=== PATIENT | female | born 1950 | race Caucasian/White ===

== ENCOUNTER 2019-12-25 13:04 | Outpatient (CLI) | payer MEDICARE, SELFPAY ==
--- NOTE | 2019-12-25 | ECG_ITS ---
Measurements Intervals [place] Rate: 106 P: 75 [place]: 136 QRS: 4 QRSD: 86 T: 40 QT: 334 QTc: 443 Interpretive Statements SINUS TACHYCARDIA DELAYED PRECORDIAL R/S TRANSITION CONSIDER INFERIOR INFARCT, AGE INDETERMINATE ABNORMAL ECG Electronically Signed On 12-25-2019 16:06:58 CDT by Anurag Mercedes D.O.
--- NOTE | ~2019-12-25 | XR_ITS ---
EXAMINATION: XR chest 2V DATE: 12/25/2019 14:21 INDICATION: Right upper quadrant pain. Dysphagia. TECHNIQUE: PA and lateral views of the chest were obtained. COMPARISON: Chest radiograph dated 03/02/2017 FINDINGS: The lungs remain clear with no focal airspace opacities, pulmonary edema, pleural effusion or pneumot horax. The cardiomediastinal silhouette is normal. Moderate to severe degenerative skeletal changes i n the spine and bilateral shoulders. IMPRESSION: 1. No acute cardiopulmonary disease. Reviewed, dictated and finalized at location A.
--- NOTE | ~2019-12-25 | US_ITS ---
EXAMINATION: US right upper quadrant DATE: 12/25/2019 15:05 INDICATION: Right upper quadrant abdominal pain. Dysphagia. TECHNIQUE: Multiple grayscale and Doppler ultrasound images of the abdomen were obtained. COMPARISON: None FINDINGS: The visualized portions of the head, body, and tail of the pancreas are normal. The liver i s normal without focal lesion. There is normal flow in main portal vein. The gallbladder is normal in size and contains sludge. There is comet-tail artifact in the gallbladder wall, consistent with iron omyomatosis. No gallbladder wall thickening or sonographic Piper sign. The common duct is normal and measures 6 mm. IMPRESSION: 1. Gallbladder sludge. No evidence of acute cholecystitis. Reviewed, dictated and finalized at location B.
[2019-12-25 14:01] LABS: Alanine Aminotransferase 22 U/L (4-35); Albumin Level 4.4 g/dL (3.5-5.1); Alkaline Phosphatase 106 U/L (38-126); Anion Gap 6 mmol/L (8-16); Aspartate Amino Transferase 27 U/L (14-36); Bilirubin,Total 0.5 mg/dL (0.2-1.3); Blood Urea Nitrogen 19 mg/dL (7-17); Calcium 9.4 mg/dL (8.4-10.2); Carbon Dioxide 28 mmol/L (22-30); Chloride 102 mmol/L (98-107); Estimated Glomerular Filt Rate > 60; Glucose 124 mg/dL (65-105); Potassium 4.1 mmol/L (3.4-5.0); Sodium 136 mmol/L (137-145)
[2019-12-25 14:16] LABS: Hemoglobin 15.5 g/dL (12.0-15.0); Mean Corpuscular HGB Conc 33.7 g/dl (32-36); Mean Corpuscular Hemoglobin 30.8 pg (26-34); Mean Corpuscular Volume 91.5 fl (80-100); Mean Platelet Volume 12.1 fl (7.4-10.4); Platelet Count Result 256 k/mm3 (150-375); Red Blood Count 5.03 M/mm3 (4.2-5.4); Red Cell Distribution Width 13.9 % (11.5-14.5); White Blood Count 9.4 K/mm3 (4.5-10.0)
[2019-12-25 14:21] LABS: Creatine Kinase MB 2.2 ng/mL (0.0-2.37); Troponin I 0.324 ng/mL (0.000-0.034)
== END 2019-12-25 13:05 | disposition home or self-care (01) ==
PROVIDERS: PCP Internal Medicine; Visit Provider Internal Medicine
DX: R13.10 Dysphagia, unspecified (principal); R07.9 Chest pain, unspecified; R10.11 Right upper quadrant pain; K83.9 Disease of biliary tract, unspecified; R94.31 Abnormal electrocardiogram [ECG] [EKG]
CPT/HCPCS: 36415; 71046; 76705; 80053; 82553; 84484; 85027; 93005

== ENCOUNTER 2019-12-25 15:54 | Inpatient (IN) | payer MEDICARE, SELFPAY ==
[2019-12-25] VITALS (10 sets, daily range): BP systolic 108–146; BP diastolic 50–78; PULSE 78–106; RESP 15–20; TEMP 36.6–37; O2SAT 96–100; BMI 34.1
--- NOTE | ~2019-12-25 | NM_ITS ---
EXAMINATION: NM cj stress w perfusion DATE: 12/26/2019 14:04 INDICATION: Rest pain. Elevated troponin. TECHNIQUE: Rest images were obtained following intravenous administration of 10 mCi Tc99m tetrofosmin (Myoview). The patient was infused intravenously with Lexiscan (Regadenoson). Then, 30.8 mCi Tc99m t etrofosmin (Myoview) was administered intravenously, and stress images were obtained. Data was recons tructed into short axis and horizontal and vertical long axis SPECT images. Gated SPECT images were a lso obtained. COMPARISON: None. FINDINGS: Mild reversible perfusion defect at the apical and inferoapical segments consistent with is chemia. Mild nonreversible perfusion defect at the mid inferior and mid inferolateral segments. There is normal left ventricular chamber size, wall motion and ejection fraction. Left ventricular ejecti on fraction measures 67%. IMPRESSION: 1. Mild reversible ischemia at the apical and inferoapical segments. 2. Nonreversible mild infarct involving the mid inferior and mid inferolateral segments. 2. Left ventricular ejection fraction measuring 67%. Reviewed, dictated and finalized at location A.
--- NOTE | 2019-12-25 16:58 | ECG_ITS ---
Measurements Intervals [place] Rate: 90 P: 57 [place]: 145 QRS: -16 QRSD: 87 T: 29 QT: 366 QTc: 449 Interpretive Statements SINUS RHYTHM BORDERLINE R WAVE PROGRESSION, ANTERIOR LEADS INFERIOR INFARCT, AGE INDETERMINATE BASELINE WANDER- V4 ABNORMAL ECG Electronically Signed On 12-25-2019 19:41:56 CDT by Anurag Mercedes D.O.
--- NOTE | 2019-12-25 17:21 | ED.GENADULT ---
HPI - General Adult General Chief complaint: Unspecified Stated complaint: cardiac workup, my doctor sent me Time Seen by Provider: 12/25/19 16:58 Source: patient History of Present Illness HPI narrative: 69-year-old female presents to emergency department for sternal burning chest pain for the past 5 days. Patient states she has never had this in the past before. Pain is sometimes worse with foods. Pain improves sometimes when she sits up and burps. She states she took some Tums to help with the pain. She denies shortness of breath. No nausea or vomiting. No fever or chills. Related Data Home Medications Medication Instructions Recorded Confirmed hydroxychloroquine 200 mg PO BID 12/25/19 12/25/19 losartan-hydrochlorothiazide 1 tablet PO DAILY 12/25/19 12/25/19 meloxicam 15 mg PO DAILY PRN 12/25/19 12/25/19 methotrexate sodium 5 mg PO WEEKLY 12/25/19 12/25/19 multivit with min-folic acid 0.4 mg PO DAILY 12/25/19 12/25/19 [Adult One Daily Multivitamin] Allergies Allergy/AdvReac Type Severity Reaction Status Date / Time piperacillin Allergy Unknown RASH, Verified 12/25/19 17:00 HIVES,ITCHING Sulfa (Sulfonamide Allergy Unknown RASH/HIVES Verified 12/25/19 17:00 Antibiotics) tazobactam Allergy Unknown RASH, Verified 12/25/19 17:00 HIVES,ITCHING Review of Systems Review of Systems: Narrative: CONSTITUTIONAL: Denies fever, chills, or sweats. EYES: Denies visual changes, redness, or discharge. ENT: Denies rhinorrhea, congestion, sore throat, or otalgia. CARDIOVASCULAR: Denies palpitations, or edema. Reports burning sternal pain RESPIRATORY: Denies cough or dyspnea. GASTROINTESTINAL: Denies abdominal pain, nausea, vomiting, or diarrhea. GENITOURINARY: Denies dysuria or hematuria. SKIN: Denies rash or itching. MUSCULOSKELETAL: Denies back pain, joint pain, or myalgia. NEUROLOGIC: Denies headache, numbness, dizziness, or weakness. PSYCHIATRIC: Denies anxiety or depression. [facility] Family History Family History (Updated 12/25/19 @ 22:34 by Judie Cm RN) Sibling Diabetes mellitus Stented coronary artery Social History Social History Years smoked: 50 Smoking status: Current every day smoker Tobacco type: cigarettes Second hand tobacco smoke exposure: Yes Alcohol intake: never Substance use: never Substance use type: does not use Spiritual care concerns: No Exam Narrative: Exam Narrative: GENERAL: Well-appearing, well-nourished, and in no acute distress. HEAD: Normocephalic, atraumatic. EYES: PERRLA and EOMI. ENT: Nares clear, no rhinorrhea or epistaxis. Mucous membranes moist. NECK: Supple. CHEST: Clear to auscultation. No respiratory distress. HEART: Tachycardia present. No murmur heard. Normal peripheral pulses. ABDOMEN: Soft, nontender, nondistended, normal active bowel sounds. EXTREMITIES: Normal range of motion. No edema. SKIN: Warm, dry, no rash. NEURO: No focal deficits. Alert and oriented x3. PSYCH: Normal mood and affect. Course Reevaluation(s) Reevaluation #1: 1830 - re-evaluated pt, no current chest pain. Patient does have an elevated troponin, however has no current chest pain at this time. We will hold on giving heparin drip. 1844 - discussed case with Dr. Lainez, accepts admission Vital Signs Vital signs: Vital Signs Temperature 37.0 C 12/25/19 16:05 Pulse Rate 81 12/25/19 16:05 Respiratory Rate 18 12/25/19 16:05 Blood Pressure 144/60 H 12/25/19 16:05 Pulse Oximetry 100 12/25/19 16:05 Temperature 36.6 C 12/25/19 22:05 Pulse Rate 87 12/25/19 22:16 Respiratory Rate 18 12/25/19 22:05 Blood Pressure 126/78 12/25/19 22:05 Pulse Oximetry 97 12/25/19 22:05 Medical Decision Making Medical Records Medical records reviewed: Yes I reviewed the patient's medical records. Vital Signs Vital Signs: Vital Signs Temperature 37.0 C 12/25/19 16:05 Pulse Rate 8
[2019-12-25 17:34] LABS: Partial Thromboplastin Time 25.9 SECONDS (22.3-36.8)
[2019-12-25 17:37] LABS: Alanine Aminotransferase 22 U/L (4-35); Albumin Level 4.5 g/dL (3.5-5.1); Alkaline Phosphatase 102 U/L (38-126); Anion Gap 8 mmol/L (8-16); Aspartate Amino Transferase 30 U/L (14-36); Bilirubin,Total 0.4 mg/dL (0.2-1.3); Blood Urea Nitrogen 18 mg/dL (7-17); Calcium 9.9 mg/dL (8.4-10.2); Carbon Dioxide 27 mmol/L (22-30); Chloride 101 mmol/L (98-107); Estimated CRCL calculation 57 ml/min; Estimated Glomerular Filt Rate > 60; Glucose 141 mg/dL (65-105); Lipase 39 U/L (23-300); Potassium 3.7 mmol/L (3.4-5.0); Sodium 136 mmol/L (137-145)
[2019-12-25 17:43] LABS: Basophils Absolute Auto 0.1 K/mm3 (0.0-0.1); Basophils Percent Auto 0.7 % (0.2-1.2); Eosinophils Absolute Auto 0.2 K/mm3 (0-0.3); Eosinophils Percent Auto 1.8 % (0-4.4); Hematocrit 45.4 % (37.0-47.0); Hemoglobin 15.2 g/dL (12.0-15.0); Immature Granulocyte Absolute 0.04 K/mm3 (0.00-0.031); Immature Granulocyte Percent A 0.4 % (0-0.5); Lymphocytes Absolute Auto 2.69 K/mm3 (0.9-3.2); Lymphocytes Percent Auto 26.1 % (18.3-44.2); Mean Corpuscular HGB Conc 33.5 g/dl (32-36); Mean Corpuscular Hemoglobin 30.4 pg (26-34); Mean Corpuscular Volume 90.8 fl (80-100); Monocytes Absolute Auto 0.7 K/mm3 (0.1-0.6); Monocytes Percent Auto 7.1 % (2.6-8.5); Neutrophils Absolute Auto 6.6 K/mm3 (1.3-6.7); Neutrophils Percent Auto 63.9 % (45.5-73.1); Platelet Count Result 253 k/mm3 (150-375); Red Cell Distribution Width 13.7 % (11.5-14.5); White Blood Count 10.3 K/mm3 (4.5-10.0)
[2019-12-25 17:49] LABS: NT Pro B Type Natriuretic Pept 966 PG/ML (5-100)
[2019-12-25 17:50] LABS: Troponin I 0.306 ng/mL (0.000-0.034)
[2019-12-25] MEDS: ASPIRIN 81 MG CHEWABLE TABLET 324 MG PO (18:10)
[2019-12-25] MEDS: SODIUM CHLORIDE 0.9% IV 1,000 ML 999 ML IV CONT (18:10)
--- NOTE | 2019-12-25 19:41 | PC.NURSE ---
Per SAIDA Sánchez, no UA needed on patient.
[2019-12-25 20:24] LABS: Troponin I 0.341 ng/mL (0.000-0.034)
--- NOTE | 2019-12-25 22:15 | ADMGEN ---
This patient, Milla Morrow, was admitted to IMU Room 203-01. Patient/family oriented to hospital policies and general routines including ID bracelet, bed and alarms, visiting hours, pain management, procedures, bathroom and other care routines, personal items, smoking policy, room service/diet, and visiting hours. Valuables list has been completed. Information on how to activate the Rapid Response Team has been discussed. Patient/Family are encouraged to report perceived risks to care and to ask questions if they do not understand what they are told or what they should do.
[2019-12-25 23:52] LABS: Troponin I 0.365 ng/mL (0.000-0.034)
[2019-12-26] VITALS (15 sets, daily range): BP systolic 110–136; BP diastolic 44–89; PULSE 72–88; RESP 16–18; TEMP 36–36.8; O2SAT 95–100
--- NOTE | 2019-12-26 | EST_ITS ---
Patient Info Name: Carlotta Morrow Age: 69 years : 1950 Gender: Female Ht: 63 in Wt: 192 lbs BSA: 2.00 m2 Exam Date: 12/26/2019 11:52 AM Exam Location: [facility] Stress Patient Status: Inpatient Admit Date: 12/25/2019 Staff Ordering Physician: Romero Robles MD Attending Provider: Mel Lainez DO Exercise Technologist: Crystal Earl RDCS Exercise Physician: Tamera Mendez MD Exam Type: CA stress cj w NM Study Info Indications - elevated troponin A regadenoson stress test was performed. Summary 1. No abnormal ST-T wave changes with lexiscan. 2. Please correlate with nuclear medicine images, reported separately. Protocol: Lexiscan Stress ECG Details Stage: REST Duration (min): 10 min : 49 sec HR (bpm): 81 SBP (mmHg): 155 DBP (mmHg): 64 Stage: REST Duration (min): 13 min : 33 sec HR (bpm): 89 SBP (mmHg): 155 DBP (mmHg): 64 Stage: STAGE 1 Duration (min): 0 min : 59 sec HR (bpm): 109 SBP (mmHg): 145 DBP (mmHg): 53 Stage: RECOVERY Duration (min): 1 min : 0 sec HR (bpm): 102 SBP (mmHg): 132 DBP (mmHg): 62 Stage: RECOVERY Duration (min): 2 min : 0 sec HR (bpm): 100 SBP (mmHg): 132 DBP (mmHg): 62 Stage: RECOVERY Duration (min): 3 min : 0 sec HR (bpm): 99 SBP (mmHg): 129 DBP (mmHg): 60 Stage: RECOVERY Duration (min): 4 min : 0 sec HR (bpm): 96 SBP (mmHg): 129 DBP (mmHg): 60 Stage: RECOVERY Duration (min): 5 min : 0 sec HR (bpm): 95 SBP (mmHg): 136 DBP (mmHg): 56 Stage: RECOVERY Duration (min): 6 min : 0 sec HR (bpm): 95 SBP (mmHg): 136 DBP (mmHg): 56 Stage: RECOVERY Duration (min): 6 min : 50 sec HR (bpm): 95 SBP (mmHg): 147 DBP (mmHg): 57 Rest HR: 89 bpm Peak HR: 109 bpm Rest Sys BP: 155 mmHg Peak Sys BP: 147 mmHg Max Pred HR: 150 bpm % Max Pred HR: 73 % Target HR: 128 bpm Max RPP: 16,023 bpm*mmHg BP Response: Normal blood pressure response Termination Reason: Completed protocol Cardiac Symptoms: None Total Time: 1 min : 0 sec Rest Boykin BP: 64 mmHg Peak [place]kin BP: 57 mmHg Total Dose: 0.4 mg Resting ECG Normal sinus rhythm. Left axis deviation. Stress ECG No abnormal ST/T wave changes with exercise. Arrhythmias None. Report Signatures
--- NOTE | 2019-12-26 | ECHO_ITS ---
Patient Info Name: Milla Morrow Age: 69 years : 1950 Gender: Female Ht: 63 in Wt: 192 lbs BSA: 2.00 m2 HR: 75 bpm BP: 122 / 68 mmHg Heart Rhythm: Sinus Rhythm Technical Quality: Good Exam Date: 12/26/2019 2:17 PM Exam Location: [facility] Patient Status: Inpatient Admit Date: 12/25/2019 Staff Ordering Physician: Saúl Estrada MD Field Nurse: Taurus Piper RDCS, RT Attending Provider: Mel Lainez DO Referring Physician: Natalie MORALES; Exam Type: CA echo doppler color flow Study Info Indications R07.89 - Other chest pain Complete two-dimensional, color flow and Doppler transthoracic echocardiogram is performed with contrast to opacify the left ventricle and to improve the deliniation of the left ventricle endocardial borders. Summary 1. Overall good left ventricular systolic function with a calculated ejection fraction of 67%. The global longitudinal strain was -19% which is normal. However there was hypokinesis of the basal inferior septal segment. Diastolic dysfunction grade 1 is present. Normal left ventricular size and thickness. 2. Mild mitral regurgitation. 3. Normal sinus rhythm. Left Ventricle Left ventricular chamber dimension is normal. Left ventricular systolic function is normal, estimated at 65-70%. There is no increased left ventricular wall thickness. Left ventricular septal wall motion is normal. The left ventricular diastolic function is grade I diastolic dysfunction. Global longitudinal strain is normal at 18 %. Right Ventricle Right ventricular chamber dimension is normal. Right ventricular systolic function is normal. Left Atria Left atrial chamber dimension is normal. Right Atria Right atrial chamber dimension is normal. Aortic Valve The aortic valve is trileaflet. There is no aortic valve sclerosis. There is no aortic valve stenosis. There is no aortic valve regurgitation. Pulmonic Valve The pulmonic valve is normal. There is no pulmonic valve stenosis. There is no pulmonic regurgitation. Mitral Valve The mitral valve has normal leaflets. There is no mitral valve stenosis. There is mild mitral valve regurgitation. Tricuspid Valve The tricuspid valve leaflets are normal. There is no significant tricuspid valve stenosis. There is trace tricuspid valve regurgitation. No pulmonary hypertension, estimated pulmonary arterial systolic pressure is Empty. Pericardium/Pleural The pericardium appears normal. There is no pericardial effusion. Inferior Vena Cava Normal inferior vena cava with >50% collapse upon inspiration consistent with Empty right atrial pressure, Empty. Aorta The aortic root size at the sinus of Valsalva is normal. The prox ascending aorta size is normal. Left Ventricular Outflow Tract Name Value Normal LVOT 2D LVOT Diameter 2.1 cm LVOT Doppler LVOT Peak Gradient 3 mmHg LVOT Mean Gradient 2 mmHg LVOT VTI 18 cm LVOT VTI/AV VTI Ratio 0.8 LVOT Stroke Volume
--- NOTE | 2019-12-26 08:15 | PM.IMHP ---
H&P: HPI History of Present Illness Date/Time: 12/26/19 08:15 Chief complaint: chest pain Narrative: Date of visit 12/25. Milla Morrow is a 69 year old female smoker with hypertension and glucose intolerance who a last 3-4 days has had increasing symptoms of reflux. No particular foods bother but she says when she lays down she has been getting severe indigestion. She increased over the counter omeprazole to 40 mg b.i.d. and thought she was getting some relief but had a severe episode approximately 2 days ago which prompted her to see her primary care physician. She had an outpatient gallbladder sonogram, chest x-ray and lab . Her physician suggested she be seen at ER for evaluation and their workup was negative except for mildly elevated troponin and she was subsequently admitted. Discomfort was accompanied by no associated symptoms and never exertional. does have a brother that has has coronary disease and smokes 3-4 cigarettes a day but never heavy over the last several years. does have hypertension and rheumatoid arthritis Review of Systems Review of Systems: Narrative: constitutional weight stable and appetite good EYE no double vision or scotoma mouth no pharyngitis laryngitis pulmonary no short of breath wheezing or cough CV no history of cardiac disease and no murmurs no palpitations and no pedal edema GI no abdominal pain diarrhea melena or hematochezia just the upper symptoms as above and no dysphagia no dysuria hematuria extremities rotator cuff tear right shoulder chronic, no other symptoms, long history of well-controlled rheumatoid arthritis neuro no seizures no syncope PMFSH Past Medical History Medical History (Updated 12/26/19 @ 08:33 by Saúl Estrada MD) GERD (gastroesophageal reflux disease) Glucose intolerance Hypertension Rheumatoid arthritis Surgical History Surgical History (Updated 12/26/19 @ 08:34 by Saúl Estrada MD) H/O hysterectomy for benign disease S/P colon resection Family History Family History (Updated 12/25/19 @ 22:34 by Judie Cm RN) Sibling Diabetes mellitus Stented coronary artery Social History Social History Years smoked: 50 Smoking status: Current every day smoker Tobacco type: cigarettes Second hand tobacco smoke exposure: Yes Alcohol intake: never Substance use: never Substance use type: does not use Spiritual care concerns: No Meds Home Medications and Allergies Home Medications Medication Instructions Recorded Confirmed Type hydroxychloroquine 200 mg PO BID 12/25/19 12/25/19 History losartan-hydrochlorothiazide 1 tablet PO DAILY 12/25/19 12/25/19 History meloxicam 15 mg PO DAILY PRN 12/25/19 12/25/19 History methotrexate sodium 5 mg PO WEEKLY 12/25/19 12/25/19 History multivit with min-folic acid 0.4 mg PO DAILY 12/25/19 12/25/19 History [Adult One Daily Multivitamin] Allergies Allergy/AdvReac Type Severity Reaction Status Date / Time piperacillin Allergy Unknown RASH, Verified 12/26/19 08:17 HIVES,ITCHING Sulfa (Sulfonamide Allergy Unknown RASH/HIVES Verified 12/26/19 08:17 Antibiotics) tazobactam Allergy Unknown RASH, Verified 12/26/19 08:17 HIVES,ITCHING Vital Signs Vital Signs - 24 hr 12/25/19 16:05 12/25/19 17:00 12/25/19 17:01 Temperature 37.0 C Pulse Rate 81 106 H 102 H Respiratory Rate 18 20 Blood Pressure 144/60 H 130/64 Pulse Oximetry 100 96 12/25/19 18:40 12/25/19 19:30 12/25/19 21:00 Temperature Pulse Rate 84 81 79 Respiratory Rate 17 15 16 Blood Pressure 146/55 H 135/50 L 134/59 L Pulse Oximetry 98 96 97 12/25/19 21:50 12/25/19 22:05 12/25/19 22:16 Temperature 36.6 C Pulse Rate 81 86 87 Respiratory Rate 15 18 Blood Pressure 108/53 L 126/78 Pulse Oximetry 96 97 12/25/19 23:55 12/26/19 00:00 12/26/19 02:00 Temperature Pulse Rate 78 75 75 Respiratory Rate
[2019-12-26] MEDS: hydroCHLOROthiazide 12.5 MG CAPSULE PO (08:17)
[2019-12-26] MEDS: LOSARTAN POTASSIUM 50 MG TABLET PO (08:17)
[2019-12-26] MEDS: ACETAMINOPHEN 325 MG TABLET 650 MG PO ×2 (08:17→17:27)
[2019-12-26] MEDS: HYDROXYCHLOROQUINE SULFATE 200 MG TABLET PO ×2 (08:17→17:18)
--- NOTE | 2019-12-26 08:21 | PM.CNCAR ---
Assessment and Plan Assessment and plan (1) Elevated troponin: Code(s): R79.89 - Other specified abnormal findings of blood chemistry Status: Acute Assessment and Plan: mild elevation troponin. Negative EKG. Symptoms suggestive of acid reflux however given elevated troponins and multiple risk factors for CAD including hypertension, rheumatoid arthritis, tobacco abuse we will arrange for a Lexiscan stress test to rule out ischemia. (2) Chest pain: Code(s): R07.9 - Chest pain, unspecified Status: Acute Assessment and Plan: See above (3) Hypertension: Code(s): I10 - Essential (primary) hypertension Status: Acute Assessment and Plan: blood pressure is controlled. Continue current treatment (4) Rheumatoid arthritis: Code(s): M06.9 - Rheumatoid arthritis, unspecified Status: Acute History of Present Illness History of Present Illness Consult date/time: Date of service :12/26/19 08:21 Requesting physician: Saúl Estrada MD Consult reason: chest pain Reason For Visit: chest pain Narrative: this is 69-year-old female with past medical history of rheumatoid arthritis, hypertension, smoker 3 cigarettes. The Was started 5 days ago having central burning sensation that gets worse when she lays down and better when she is walking around. She states that she did not have chest pain during the day and only at night when she goes to sleep. She thinks that pain went away after taking antacids, drinking milk here in the hospital she did not have any recurrence of the pain here. Denies shortness of breath, limb edema, orthopnea, but expansion cm, dizziness, syncope. She states that she has problems with acid reflux for long time. This time was worse. troponins 0.32to 0.36. chest x-ray reviewed myself looks unremarkable, ultrasound of the gallbladder shows sludge. EKG interpreted myself shows sinus tachycardia and no ischemic changes. Review of Systems Constitutional: Constitutional: Denies chills, Denies fever(s) and Denies poor appetite Eyes: Eyes: Denies eye discharge, Denies loss of vision, Denies eye pain and Denies photophobia ENT: Denies dizziness, Denies epistaxis, Denies nasal congestion and Denies sore throat Cardiovascular: Cardiovascular: Reports chest pain, Denies syncope, Denies pedal edema, Denies leg edema, Denies palpitations, Denies dyspnea, Denies dyspnea on exertion and Denies orthopnea Respiratory: Respiratory: Denies cough, Denies dyspnea, Denies dyspnea on exertion and Denies wheezing Gastrointestinal: Gastrointestinal: Denies abdominal pain, Reports heartburn, Denies diarrhea, Denies nausea and Denies vomiting Genitourinary: Genitourinary: Denies hematuria, Denies genital lesions and Denies dysuria Musculoskeletal: Musculoskeletal: Denies arthralgias, Denies joint swelling and Denies numbness Integumentary/Breasts: Skin/Breast: Denies pruritus and Denies rash Neurologic: Denies dizziness, Denies syncope, Denies loss of vision and Denies numbness Psychiatric: Psychiatric: Denies anxiety and Denies depression Endocrine: Endocrine: Denies cold intolerance, Denies heat intolerance and Denies palpitations Hematologic/Lymphatic: Hematologic/Lymphatic: Denies easy bleeding and Denies easy bruising Allergic/Immunologic: Allergic/Immunologic: Denies urticaria and Denies wheezing PMFSH Past Medical History Medical History GERD (gastroesophageal reflux disease) Glucose intolerance Hypertension Rheumatoid arthritis Surgical History Surgical History H/O hysterectomy for benign disease S/P colon resection Family History Family History Sibling Diabetes mellitus Stented coronary artery Social History Social History
[2019-12-26 08:27] LABS: Glucose Point of Care 135 (65-105)
[2019-12-26] MEDS: PERFLUTREN LIPID MICROSPHERES 1.5 ML VIAL DILUTED TO 10 ML TOTAL VOLUME IV PUSH (14:39)
[2019-12-26] MEDS: MELATONIN 3 MG TABLET PO (20:50)
[2019-12-26] MEDS: PANTOPRAZOLE 40 MG TABLET PO (20:50)
[2019-12-27] VITALS (32 sets, daily range): BP systolic 109–160; BP diastolic 46–83; PULSE 65–102; RESP 13–21; TEMP 36.1–37.1; O2SAT 95–100
[2019-12-27 05:24] LABS: Cholesterol 171 mg/dL (0-200); HDL Direct 43 mg/dL; Triglycerides 131 mg/dL (<150)
[2019-12-27 05:35] LABS: LDL Cholesterol Direct 100 mg/dL
[2019-12-27] MEDS: SODIUM CHLORIDE 0.9% IV 500 ML 100 ML IV CONT (06:11)
--- NOTE | 2019-12-27 08:00 | ECG_ITS ---
Measurements Intervals [place] Rate: 75 P: 33 [place]: 150 QRS: -2 QRSD: 88 T: 31 QT: 396 QTc: 443 Interpretive Statements SINUS RHYTHM DELAYED PRECORDIAL R/S TRANSITION BASELINE WANDER- II, III, AVL BORDERLINE ECG Electronically Signed On 12-27-2019 10:28:06 CDT by Anurag Mercedes D.O.
[2019-12-27] MEDS: LOSARTAN POTASSIUM 50 MG TABLET PO (08:01)
[2019-12-27] MEDS: hydroCHLOROthiazide 12.5 MG CAPSULE PO (08:01)
[2019-12-27] MEDS: HYDROXYCHLOROQUINE SULFATE 200 MG TABLET PO ×2 (08:01→21:37)
[2019-12-27] MEDS: PANTOPRAZOLE 40 MG TABLET PO ×2 (08:01→21:37)
[2019-12-27] MEDS: ASPIRIN 81 MG CHEWABLE TABLET PO (08:03)
--- NOTE | 2019-12-27 09:38 | WPDMODSED ---
Moderate Sedation Note-Pt Data Patient Data Diagnosis: intermittent chest pain atypical of angina abnormal Lexiscan nuclear stress test obesity Present Complaint: no complaints this morning Procedure to be performed/Plan: left heart catheterization Allergies Allergy/AdvReac Type Severity Reaction Status Date / Time piperacillin Allergy Unknown RASH, Verified 12/26/19 08:17 HIVES,ITCHING Sulfa (Sulfonamide Allergy Unknown RASH/HIVES Verified 12/26/19 08:17 Antibiotics) tazobactam Allergy Unknown RASH, Verified 12/26/19 08:17 HIVES,ITCHING Home Medications Medication Instructions Recorded Confirmed Type hydroxychloroquine 200 mg PO BID 12/25/19 12/25/19 History losartan-hydrochlorothiazide 1 tablet PO DAILY 12/25/19 12/25/19 History meloxicam 15 mg PO DAILY PRN 12/25/19 12/25/19 History methotrexate sodium 5 mg PO WEEKLY 12/25/19 12/25/19 History multivit with min-folic acid 0.4 mg PO DAILY 12/25/19 12/25/19 History [Adult One Daily Multivitamin] Current Medications: Active Medications Acetaminophen (Tylenol Tablet) 650 mg PO Q4H PRN PRN Reason: Mild Pain (1-3) or Fever Last Admin: 12/26/19 17:27 Dose: 650 mg Documented by: Aspirin (Aspirin Chewable) 81 mg PO DAILY@0800 [facility] Last Admin: 12/27/19 08:03 Dose: 81 mg Documented by: Hydrochlorothiazide (Hydrochlorothiazide) [facility] Last Admin: 12/27/19 08:01 Dose: 12.5 mg Documented by: Hydroxychloroquine Sulfate (Plaquenil Tab) 200 mg PO BID [facility] Last Admin: 12/27/19 08:01 Dose: 200 mg Documented by: Sodium Chloride (Normal Saline Iv) 500 mls @ 100 mls/hr IV CONT .Q5H [facility] Last Admin: 12/27/19 06:11 Dose: 100 mls/hr Documented by: Losartan Potassium (Cozaar) 50 mg PO QAM [facility] Last Admin: 12/27/19 08:01 Dose: 50 mg Documented by: Nitroglycerin (Nitrostat Subl 0.4 Mg (1/150)) 0.4 mg SUBLINGUAL Q5MIN PRN PRN Reason: Chest Pain Ondansetron HCl (Zofran Inj) 4 mg IV PUSH Q4H PRN PRN Reason: Nausea Pantoprazole Sodium (Protonix) 40 mg PO Q12HR [facility] Last Admin: 12/27/19 08:01 Dose: 40 mg Documented by: Sedation/Anesthesia: No previous sedation/anesthesia problems (including family history). [facility] Past Medical History Medical History GERD (gastroesophageal reflux disease) Glucose intolerance Hypertension Rheumatoid arthritis Surgical History Surgical History H/O hysterectomy for benign disease S/P colon resection Family History Family History Sibling Diabetes mellitus Stented coronary artery Social History Social History Years smoked: 50 Smoking status: Current every day smoker Tobacco type: cigarettes Second hand tobacco smoke exposure: Yes Alcohol intake: never Substance use: never Substance use type: does not use Spiritual care concerns: No Mod Sed Physical Exam Physical Exam Pre Procedural Exam: Normal: Neck, Throat, Airway, Lungs, Heart Size, Heart Rate, Heart Rhythm, Neuro Exam and Extremities and Variation: Appearance ( pleasant obese white female no apparent distress) Hours since solid foods: 12 Hours since liquid intake: 12 Internal Medicine - PN: Obj Da Vital Signs Vital Signs: Vital Signs - 24 hr 12/26/19 10:00 12/26/19 12:00 12/26/19 12:30 Temperature 36.0 C L Pulse Rate 82 82 87 Respiratory Rate 16 Blood Pressure 129/89 Pulse Oximetry 100 12/26/19 14:00 12/26/19 16:00 12/26/19 18:00 Temperature 36.7 C Pulse Rate 88 88 81 Respiratory Rate 16 Blood Pressure 134/59 L Pulse Oximetry 95 12/26/19 20:00 12/26/19 22:00 12/26/19 23:42 Temperature 36.1 C L 36.6 C Pulse Rate 85 73 79 Respiratory Rate 18 18 Blood Pressure 132/56 L 110/55 L Pulse Oximetry 95 98 12/26/19 23:51 12/27/19 00:00 12/27/19 02:00 T
--- NOTE | 2019-12-27 13:31 | ECG_ITS ---
Measurements Intervals [place] Rate: 81 P: 72 [place]: 150 QRS: -6 QRSD: 79 T: 57 QT: 381 QTc: 444 Interpretive Statements SINUS RHYTHM NONSPECIFIC T-WAVE ABNORMALITY- LATERAL LEADS BASELINE WANDER- AVF BORDERLINE ECG Electronically Signed On 12-28-2019 7:19:21 CDT by Anurag Mercedes D.O.
--- NOTE | 2019-12-27 13:37 | WPDCARDPROC ---
Cardiac Cath Procedure Note Date of procedure:: 12/27/19 Performing physician:: Rubin Muñoz MD Indication:: acute coronary syndrome Brief clinical history:: this is a 69-year-old woman has no previous history of coronary disease but is hypertensive significantly obese. She entered the hospital with chest pain symptoms that were rather atypical of angina but were associated with an elevation the troponin level. A nuclear stress test was abnormal prompting the recommendation to proceed with an angiogram. Procedure Procedure performed:: Left heart catheterization with coronary angiography and left ventriculography percutaneous angioplasty and stenting to the mid to RCA as well as RPL branch Sedation/Medication given:: fentanyl 50 mg Versed 2 mg case start time 12:22 p.m. case end time 1:26 p.m. sedation provided by Radha Cristina RN, trained observer Access site:: right femoral artery Estimated blood loss:: 20-30 cc Procedure note:: patient was brought to the cardiac catheterization lab in the postabsorptive state the right femoral triangle was prepared in the usual fashion. Anesthesia was provided with 1% lidocaine infiltrated locally. Using the modified Seldinger technique the 5 Slovak sheath was punctured into the right femoral artery after this I performed left heart catheterization. A 5 Slovak angled pigtail catheter was used to perform a left ventriculogram in the GARCIA projection and to document left-sided hemodynamics and pullback pressures across the aortic valve. Following this a standard 5 Slovak FL4 catheter was used to engage inject the left coronary artery. After following this a 5 Slovak JR4 catheter was used to engage inject the right coronary artery. Following this the cineangiograms were reviewed and PCI of the right coronary and RPL branch were recommended and carried out as detailed below. prior to intervention the 5 Slovak sheath was changed over a guidewire for a 6 Slovak device. The patient was systemically anticoagulated with Angiomax bolus and infusion for this intervention and she receive 180 mg of Brilinta orally as well as 3-5 mg of aspirin. Following intervention as detailed below the sheath was sutured into position the patient was taken to the holding area for recovery and sheath removal 2 hours after completion of Angiomax infusion. 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 Findings:: Hemodynamics: Central aortic pressure is 128/52 left ventricle 126/0 end-diastolic pressure of 10 there is no significant gradient on pullback across the aortic valve. Left ventricle: The LV is normal in size the posterior basal segment is severely hypodynamic the remainder of the LV contracts well the global ejection fraction is 55-60%. Left main coronary is short but widely patent the LAD is a medium-sized vessel. There is mild luminal irregularity in the LAD but no functional stenosis is identified. There is ALVERTO 3 flow in the LAD down to the apex. The circumflex is a small to medium caliber vessel consisting of only 1 OM branch. The circumflex is remarkable for minimal luminal irregularities but no flow-limiting lesions are seen. The right coronary artery is very large. It is dominant to the posterior circulation and has severe atherosclerotic disease in the midportion. The midportion large vessel has a 95-99% stenosis which is preceded followed by more mild disease but the complete area of atherosclerosis is rather long. The distal RCA is free of significant lesions the posterolateral branch which is moderate to large in size has a proximal area of complex high-grade stenosis of 90%. The posterior descending artery has 50-60% stenosis in its midportion which does not appear to be flow limiting. Intervention: The right coronary artery was engaged using a 6 Slovak JR4 guiding catheter. I used a 0.014 B
--- NOTE | 2019-12-27 16:04 | PM.IMPN ---
Progress Note: A&P Assessment and Plan (1) Chest pain: Code(s): R07.9 - Chest pain, unspecified Status: Acute Assessment and Plan: chest pain appears to be GI related compatible with reflux although she has slight elevation of troponin which is flat. added PPI, and echo had some mild apical hypokinetic area and lexiscan had some reversible ishemia inferiorly. Cath today 95% mid RCA and high grade RPL branch lesion. Both areas were stented with good flow. LAD minimal disease and circ small vessel ARB,beta norma, statin, antiplatelet (2) Hypertension: Code(s): I10 - Essential (primary) hypertension Status: Acute Assessment and Plan: pressure controlled continue the ARB and diuretic and now beta norma (3) Rheumatoid arthritis: Code(s): M06.9 - Rheumatoid arthritis, unspecified Status: Acute Assessment and Plan: rheumatoid arthritis controlled continue her hydroxychloroquine and methotrexate, hold meloxicam with GI symptoms (4) Light tobacco smoker: Code(s): F17.200 - Nicotine dependence, unspecified, uncomplicated Status: Acute Assessment and Plan: never been a heavy smoker but would be advantageous to quit (5) Glucose intolerance: Code(s): E74.39 - Other disorders of intestinal carbohydrate absorption Status: Acute Assessment and Plan: random sugar 124 and will follow-up with primary care Subjective Date/time seen: 12/27/19 16:04 Interval history: date of visit 12/26. 69-year-old hypertensive smoker with glucose intolerance and rheumatoid arthritis admitted with substernal burning sensation worse after eating or lying down and not exertional. Troponin was slightly elevated though flat but Lexiscan revealed some reversible ischemia and inferior and patient to undergo cardiac catheterization today 12/26. she has had no further discomfort or pain Exam Narrative: Exam Narrative: blood pressure 144/56 pulse 68 afebrile pupils equal reactive light sclera anicteric neck supple no adenopathy or carotid bruits lungs clear CV no murmurs gallops rubs or clicks abdomen is soft nontender no masses extremities without edema distal pulses are 2+ neuro alert pleasant cooperative no focal deficits, cranial nerves 2-12 are intact integument no skin breakdown or rashes Objective Data Vital Signs Vital Signs: Vital Signs - 24 hr 12/26/19 18:00 12/26/19 20:00 12/26/19 22:00 Temperature 36.1 C L Pulse Rate 81 85 73 Respiratory Rate 18 Blood Pressure 132/56 L Pulse Oximetry 95 12/26/19 23:42 12/26/19 23:51 12/27/19 00:00 Temperature 36.6 C Pulse Rate 79 79 73 Respiratory Rate 18 18 Blood Pressure 110/55 L Pulse Oximetry 98 98 12/27/19 02:00 12/27/19 03:48 12/27/19 04:00 Temperature 36.2 C L Pulse Rate 71 65 79 Respiratory Rate 18 18 Blood Pressure 118/46 L Pulse Oximetry 97 97 12/27/19 06:00 12/27/19 08:00 12/27/19 09:55 Temperature 36.6 C Pulse Rate 97 72 82 Respiratory Rate 20 Blood Pressure 120/57 L Pulse Oximetry 96 12/27/19 12:00 12/27/19 13:50 12/27/19 14:00 Temperature Pulse Rate 83 78 72 Respiratory Rate 14 14 Blood Pressure 150/74 H 143/78 H Pulse Oximetry 99 100 12/27/19 14:15 12/27/19 14:30 12/27/19 14:45 Temperature Pulse Rate 72 66 80 Respiratory Rate 14 14 16 Blood Pressure 160/77 H 157/65 H 149/66 H Pulse Oximetry 98 98 99 12/27/19 15:00 12/27/19 15:30 12/27/19 16:00 Temperature Pulse Rate 66 69 70 Respiratory Rate 14 18 17 Blood Pressure 148/58 H 144/55 H 146/66 H Pulse Oximetry 99 99 99 Intake/Output Intake/Output: Intake & Output 12/24/19 12/25/19 12/26/19 12/27/19 23:59 23:59 23:59 23:59 Intake Total 1000 1240 722 Output Total 2100 1600 Balance 2563 -829 -702 Meds/Results Medications: Active Medications Generic Name Dose Route Start Last Admin Trade Name Freq PRN Reason Stop Dose Admin
[2019-12-27] MEDS: SODIUM CHLORIDE 0.9% IV 1,000 ML 125 ML IV CONT (19:47)
[2019-12-27] MEDS: METOPROLOL TARTRATE 25 MG TABLET PO (21:35)
[2019-12-27] MEDS: TICAGRELOR 90 MG TABLET PO (21:35)
[2019-12-28] VITALS (9 sets, daily range): BP systolic 112–128; BP diastolic 46–53; PULSE 67–79; RESP 16–20; TEMP 35.7–36.4; O2SAT 96–99
--- NOTE | 2019-12-28 05:11 | ECG_ITS ---
Measurements Intervals [place] Rate: 73 P: 25 [place]: 147 QRS: -14 QRSD: 83 T: 9 QT: 403 QTc: 445 Interpretive Statements SINUS RHYTHM DELAYED PRECORDIAL R/S TRANSITION INFERIOR INFARCT, AGE INDETERMINATE BASELINE ARTIFACT- I, II, III, V4-V6 ABNORMAL ECG Electronically Signed On 12-28-2019 7:45:09 CDT by Anurag Mercedes D.O.
[2019-12-28] MEDS: HYDROXYCHLOROQUINE SULFATE 200 MG TABLET PO (08:20)
[2019-12-28] MEDS: PANTOPRAZOLE 40 MG TABLET PO (08:20)
[2019-12-28] MEDS: hydroCHLOROthiazide 12.5 MG CAPSULE PO (08:20)
[2019-12-28] MEDS: LOSARTAN POTASSIUM 50 MG TABLET PO (08:20)
[2019-12-28] MEDS: METOPROLOL TARTRATE 25 MG TABLET PO (08:20)
[2019-12-28] MEDS: TICAGRELOR 90 MG TABLET PO (08:21)
[2019-12-28] MEDS: ISOSORBIDE MONONITRATE 30 MG TAB.ER.24H PO (08:21)
[2019-12-28] MEDS: ROSUVASTATIN 10 MG TABLET PO (08:21)
[2019-12-28] MEDS: ASPIRIN 81 MG CHEWABLE TABLET PO (08:27)
--- NOTE | 2019-12-28 10:10 | PM.PNCARD ---
Progress Note: A&P Assessment and Plan (1) Non-STEMI (non-ST elevated myocardial infarction): Code(s): I21.4 - Non-ST elevation (NSTEMI) myocardial infarction Status: Acute Assessment and Plan: Patient admitted with unstable angina manifested as GI symptoms. Two drug-eluting stents placed in the large right coronary artery yesterday. Doing well today, no recurrent symptoms, appears stable for discharge. Discussed medication changes franklin. need for dual anti-platelet therapy. Cannot miss any doses as there is risk of stent thrombosis and heart attack. My office will call the patient to schedule a follow-up visit. (2) History of coronary artery stent placement: Code(s): Z95.5 - Presence of coronary angioplasty implant and graft Status: Acute (3) Hypertension: Code(s): I10 - Essential (primary) hypertension Status: Acute Subjective Date/time seen: 12/28/19 10:10 Patient admitted with GI type symptoms but found to have elevated troponin, abnormal stress test and underwent cardiac catheterization yesterday. Two Drug-eluting stents were placed in the patient's large mid RCA and posterolateral branches. Date of service 12/28/2019: Patient feels well, up and about in her room with no problems, no more GERD symptoms or heartburn. No shortness of breath. No pain from the cath site. Review of Systems Constitutional: Constitutional: Reports difficulty sleeping Eyes: Eyes: Reports no additional eye complaints ENT: Denies epistaxis Cardiovascular: Cardiovascular: Denies chest pain, Denies pedal edema, Denies lightheadedness and Denies palpitations Respiratory: Respiratory: Denies chest congestion and Denies dyspnea Gastrointestinal: Gastrointestinal: Denies hematochezia Genitourinary: Genitourinary: Denies hematuria Musculoskeletal: Musculoskeletal: Reports no additional musculoskeletal complaints Integumentary/Breasts: Skin/Breast: Denies rash Neurologic: Reports system reviewed and no additional complaints, except as documented Psychiatric: Psychiatric: Reports no additional psychiatric complaints Exam HENMT: Mouth: Yes moist mucous membranes Eyes: EOM: EOMs intact bilaterally Neck: Neck: supple Resp: Auscultation: clear to auscultation bilaterally Cardio: Rate: regular rate Heart sounds: no murmurs GI: Inspection: non-distended Skin: Lesions: lesion noted ( Ecchymosis of cath site extending into upper inner thigh but no hematoma,) Other: No bruit. Intact distal pulses. Neuro: Speech: normal speech Motor exam (neuro): Normal motor muscle tone present throughout Extrem: General: no pedal edema Psych: Mental Status: mental status grossly normal Objective Data Vital Signs Vital Signs: Vital Signs - 24 hr 12/27/19 12:00 12/27/19 13:50 12/27/19 14:00 Temperature Pulse Rate 83 78 72 Respiratory Rate 14 14 Blood Pressure 150/74 H 143/78 H Pulse Oximetry 99 100 12/27/19 14:15 12/27/19 14:30 12/27/19 14:45 Temperature Pulse Rate 72 66 80 Respiratory Rate 14 14 16 Blood Pressure 160/77 H 157/65 H 149/66 H Pulse Oximetry 98 98 99 12/27/19 15:00 12/27/19 15:30 12/27/19 16:00 Temperature Pulse Rate 66 69 70 Respiratory Rate 14 18 17 Blood Pressure 148/58 H 144/55 H 146/66 H Pulse Oximetry 99 99 99 12/27/19 17:00 12/27/19 17:15 12/27/19 17:30 Temperature Pulse Rate 75 82 86 Respiratory Rate 13 18 20 Blood Pressure 109/82 137/72 120/83 Pulse Oximetry 99 97 97 12/27/19 17:45 12/27/19 18:00 12/27/19 18:15 Temperature Pulse Rate 87 87 86 Respiratory Rate 21 H 17 16 Blood Pressure 152/82 H 154/68 H 160/71 H Pulse Oximetry 98 98 98 12/27/19 18:30 12/27/19 19:16 12/27/19 19:45 Temperature 96.9 F L 98.5 F Pulse Rate 87 102 H 96 Respiratory Rate 14 16 18 Blood Pressure 160/82 H 135/59 L 126/59 L Pulse Oximetry 98 96
--- NOTE | 2020-01-02 10:37 | PM.DS ---
DS: Admitting Diagnosis Admitting Diagnosis Admitting Diagnosis: Acute coronary syndrome/RCA and RPL PCI DS: Discharge Diagnosis Discharge Diagnosis (1) Chest pain: Code(s): R07.9 - Chest pain, unspecified Status: Acute Assessment and Plan: chest pain appears to be GI related compatible with reflux although she has slight elevation of troponin which were flat. added PPI, and echo had some mild apical hypokinetic area and lexiscan had some reversible ishemia inferiorly. Still uncertain if pain was cardiac or if more GI, will be on PPI at d/c too Cath today 95% mid RCA and high grade RPL branch lesion. Both areas were stented with good flow. LAD minimal disease and circ small vessel ARB,beta norma, statin, brilinta, asa, and nitrate follow up with priya [address] Coker 2 weeks (2) Hypertension: Code(s): I10 - Essential (primary) hypertension Status: Acute Assessment and Plan: pressure controlled continue the ARB and diuretic and now beta norma (3) Rheumatoid arthritis: Code(s): M06.9 - Rheumatoid arthritis, unspecified Status: Acute Assessment and Plan: rheumatoid arthritis controlled continue her hydroxychloroquine and methotrexate, (4) Light tobacco smoker: Code(s): F17.200 - Nicotine dependence, unspecified, uncomplicated Status: Acute Assessment and Plan: never been a heavy smoker but would be advantageous to quit and patient advised the same (5) Glucose intolerance: Code(s): E74.39 - Other disorders of intestinal carbohydrate absorption Status: Acute Assessment and Plan: random and fasting sugars just above normal in low 100s and will follow-up with primary care DS: Summary Hospital Course Hospital Course: 69-year-old white female smoker with positive family history of coronary disease, hypertension, and rheumatoid arthritis admitted with substernal and epigastric burning sensation post Prandial and aggravated by lying and relieved belching and never exertional. She did have mildly elevated troponin which were essentially flat and serial testing. Cardiology was consult id and Lexiscan revealed some reversible and changes inferiorly and echo showed some mild hypokinesis inferiorly with normal ejection fraction of 67%. At catheterization neuro was high-grade stenosis of a posterior lateral branch of the RCA which was stented and the RCA was also stented with 2 stents. It remains to be seen if the coronary lesions were causing her chest discomfort since by history it seemed definitely more GI related. She will remain on Protonix 40 daily along with her cardiac meds and follow-up with primary care and cardiology Time Spent with Patient Time attestation: Total time spent providing and/or coordinating discharge services: 35 minutes Exam Narrative: Exam Narrative: condition on discharge blood pressure 128/76 pulse 74 saturating 99% on room air afebrile lungs clear CV regular rate and rhythm no murmurs abdomen soft nontender extremities without edema marked bruising at catheterization site with no palpable hematoma and distal pulses dorsalis pedis posterior tibial 2+ and symmetrical Discharge Plan Discharge Attending physician on discharge: Saúl Estrada Consulting providers: Tamera Mendez ; Romero Robles ; Rubin Muñoz ; Greg Palmer ; Anurag Mercedes Discharging Clinician: Saúl Estrada Patient Disposition: Home, Self-Care Activity: other - see discharge instructions Diet: low sodium and low cholesterol Discharge Instructions: [facility] will call you this week to schedule a follow-up appointment. If you do not hear, please call us at: [phone]. Post cardiac catheterization instructions: No driving, for 2-3 days, until the cardiac catheterization site is no longer tender. May return to work in 1 week. No lifting more than 10
== END 2019-12-28 11:15 | disposition home or self-care (01) | DRG 247 ==
LOC: ANHED 21:01 → ANHIMU 21:36
PROVIDERS: Emergency Medicine Emergency Medical Services; Internal Medicine Cardiovascular Disease; Specialist; Admitting Provider Internal Medicine; Emergency Provider Emergency Medicine; PCP Internal Medicine; Visit Provider Internal Medicine
PROC: 4A023N7 Measurement of Cardiac Sampling and Pressure, Left Heart, Percutaneous Approach (ICD-10-PCS; CPT 93452; principal; 2019-12-27 11:30)
PROC: 027035Z Dilation of Coronary Artery, One Artery with Two Drug-eluting Intraluminal Devices, Percutaneous Approach (ICD-10-PCS; 2019-12-27 11:30)
PROC: 027035Z Dilation of Coronary Artery, One Artery with Two Drug-eluting Intraluminal Devices, Percutaneous Approach (ICD-10-PCS; 2019-12-27 11:30)
DX: I21.4 Non-ST elevation (NSTEMI) myocardial infarction (principal); I25.10 Atherosclerotic heart disease of native coronary artery without angina pectoris; I10 Essential (primary) hypertension; F17.210 Nicotine dependence, cigarettes, uncomplicated; K21.9 Gastro-esophageal reflux disease without esophagitis; M06.9 Rheumatoid arthritis, unspecified; E74.39 Other disorders of intestinal carbohydrate absorption; E66.9 Obesity, unspecified; Z68.38 Body mass index [BMI] 38.0-38.9, adult; Z90.710 Acquired absence of both cervix and uterus
CPT/HCPCS: 36415; 71046; 76705; 78452; 80053; 80061; 82553; 83690; 83880; 84484; 85025; 85027; 85610; 85730; 92978; 93005; 93017; 93306; 93458; 96374; 99285; A9270; A9502; C1725; C1753; C1769; C1874; C1887; C1894; C9600; G0378; J0583; J1644; J2250; J2785; J3010; J7030; J7040; Q9957

== ENCOUNTER 2020-02-07 08:06 | Outpatient (CLI) | payer MEDICARE, SELFPAY ==
--- NOTE | ~2020-02-07 | CT_ITS ---
EXAMINATION:CT lung screening DATE: 02/07/2020 08:39 INDICATION: Personal history of nicotine dependence. Current smoker with 50 pack year history. TECHNIQUE: Computed tomography (CT) of the chest was performed without intravenous contrast. Automate d exposure control and iterative reconstruction technique were employed. The dose-length product (DLP ) was 338.02 mGy-cm. COMPARISON: Chest CT 01/29/2009 FINDINGS: There is mild emphysema. A calcified right lung nodule is consistent with old granulomatous disease. Again seen is a 5 mm nodule in left upper lobe. There is a chronic 5 mm nodule at the minor fissure. No pleural effusion. The heart size is normal. There are coronary artery calcifications. No pericardial effusion. There is a 1.7 cm mass in right adrenal gland measuring low attenuation, consi stent with an adenoma. There is severe thoracic spondylosis. IMPRESSION: 1. Lung-RADS category 2: Benign appearance or behavior. Continue annual screening with noncontrast lo w-dose chest CT in 12 months. Reviewed, dictated and finalized at location B. IMPRESSION: 1. Lung-RADS category 2: Benign appearance or behavior. Continue annual screeni ng with noncontrast low-dose chest CT in 12 months.
== END 2020-02-07 08:07 | disposition home or self-care (01) ==
PROVIDERS: PCP Internal Medicine; Visit Provider Internal Medicine
DX: F17.210 Nicotine dependence, cigarettes, uncomplicated (principal); J43.9 Emphysema, unspecified
CPT/HCPCS: G0297

== ENCOUNTER 2020-03-30 16:39 | Emergency (ER) | payer MEDICARE, SELFPAY ==
[2020-03-30] VITALS (16 sets, daily range): BP systolic 126–153; BP diastolic 53–90; PULSE 56–74; RESP 13–26; TEMP 36.2–36.6; O2SAT 95–100
--- NOTE | ~2020-03-30 | XR_ITS ---
EXAMINATION: XR chest 1V portable DATE: 03/30/2020 17:36 INDICATION: Chest heaviness and dizziness TECHNIQUE: frontal view of the chest was obtained. COMPARISON: Chest radiograph dated 12/25/19 FINDINGS: The lungs are clear with no focal airspace opacities, pulmonary edema, pleural effusion or pneumothor ax. The cardiomediastinal silhouette is normal. Mild thoracolumbar dextrocurvature with moderate spon dylosis. IMPRESSION: 1. No acute cardiopulmonary disease. Reviewed, dictated and finalized at location A. CH MARKETING COORDINATOR
--- NOTE | 2020-03-30 16:46 | ECG_ITS ---
Measurements Intervals [place] Rate: 72 P: 27 [place]: 164 QRS: 3 QRSD: 82 T: 16 QT: 378 QTc: 415 Interpretive Statements SINUS RHYTHM BASELINE WANDER- III, V3-V6 NORMAL ECG Electronically Signed On 03-30-2020 16:58:26 SOFTWARE DEVELOPMENT SPECIALIST by Anurag Mercedes D.O.
[2020-03-30 17:04] LABS: Basophils Absolute Auto 0.1 K/mm3 (0.0-0.1); Basophils Percent Auto 0.8 % (0.2-1.2); Eosinophils Absolute Auto 0.2 K/mm3 (0-0.3); Eosinophils Percent Auto 2.7 % (0-4.4); Hematocrit 42.6 % (37.0-47.0); Hemoglobin 14.1 g/dL (12.0-15.0); Immature Granulocyte Absolute 0.05 K/mm3 (0.00-0.031); Immature Granulocyte Percent A 0.6 % (0-0.5); Lymphocytes Absolute Auto 2.44 K/mm3 (0.9-3.2); Lymphocytes Percent Auto 29.1 % (18.3-44.2); Mean Corpuscular HGB Conc 33.1 g/dl (32-36); Mean Corpuscular Hemoglobin 31.3 pg (26-34); Mean Corpuscular Volume 94.5 fl (80-100); Mean Platelet Volume 11.3 fl (7.4-10.4); Monocytes Absolute Auto 0.6 K/mm3 (0.1-0.6); Monocytes Percent Auto 6.6 % (2.6-8.5); Neutrophils Percent Auto 60.2 % (45.5-73.1); Platelet Count Result 235 k/mm3 (150-375); Red Blood Count 4.51 M/mm3 (4.2-5.4); Red Cell Distribution Width 14.9 % (11.5-14.5); White Blood Count 8.4 K/mm3 (4.5-10.0)
[2020-03-30 17:17] LABS: Prothrombin Time 13.5 Seconds (11.1-14.7)
[2020-03-30] MEDS: ASPIRIN 81 MG CHEWABLE TABLET 324 MG PO (17:17)
[2020-03-30 17:18] LABS: Partial Thromboplastin Time 27.4 SECONDS (22.3-36.8)
--- NOTE | 2020-03-30 17:18 | ED.GENADULT ---
HPI - General Adult General Chief complaint: Chest Pain Stated complaint: cp, sob Time Seen by Provider: 03/30/20 17:17 Source: patient Mode of arrival: ambulatory Limitations: no limitations History of Present Illness HPI narrative: 70-year-old woman with a history of 3 cardiac stents placed in November is here for chest pain, fullness in her ears and sinus fullness. She is describing heaviness in her chest, she has a long history of GERD and has been on Protonix and Prilosec. When she had her stents placed in November she did not have any typical cardiac symptoms. Her pain is nonradiating and not exacerbated by activity. Onset (ago): hour(s) Radiation: non-radiation Severity scale (1-10): 2 Quality: other (heavy) Pain Consistency: intermittent Relieving factors: none Exacerbating factors: none Associated symptoms: denies other symptoms Treatments prior to arrival: none Related Data Home Medications Medication Instructions Recorded Confirmed Adult One Daily Multivitamin 0.4 mg PO DAILY 12/25/19 12/25/19 hydroxychloroquine 200 mg PO BID 12/25/19 12/25/19 losartan-hydrochlorothiazide 1 tablet PO DAILY 12/25/19 12/25/19 methotrexate sodium 5 mg PO WEEKLY 12/25/19 12/25/19 Allergies Allergy/AdvReac Type Severity Reaction Status Date / Time piperacillin Allergy Unknown RASH, Verified 03/30/20 16:47 HIVES,ITCHING Sulfa (Sulfonamide Allergy Unknown RASH/HIVES Verified 03/30/20 16:47 Antibiotics) tazobactam Allergy Unknown RASH, Verified 03/30/20 16:47 HIVES,ITCHING Review of Systems Review of Systems: All systems reviewed & are unremarkable except as noted in HPI and below PMFSH Past Medical History Medical History GERD (gastroesophageal reflux disease) Glucose intolerance Hypertension Non-STEMI (non-ST elevated myocardial infarction) Rheumatoid arthritis Surgical History Surgical History H/O hysterectomy for benign disease History of coronary artery stent placement S/P colon resection Family History Family History Sibling Diabetes mellitus Stented coronary artery Social History Social History Years smoked: 50 Smoking status: Current every day smoker Tobacco type: cigarettes Second hand tobacco smoke exposure: Yes Alcohol intake: never Substance use: never Substance use type: does not use Gender identity (if verbalized by the patient): Female Spiritual care concerns: No Course Course Emergency Course: Pt is feeling well. Troponin X 2 are negative and EKG shows NSR. pt is ready for discharge. Regarding other symptoms, are most likely sinus related but she was afraid to take anything at home. Will treat with OTC nasal steroid spray and NS spray. Vital Signs Vital signs: Vital Signs Temperature 36.2 C L 03/30/20 16:43 Pulse Rate 74 03/30/20 16:43 Respiratory Rate 18 03/30/20 16:43 Blood Pressure 153/53 H 03/30/20 16:43 Pulse Oximetry 100 03/30/20 16:43 Temperature 36.6 C 03/30/20 16:54 Pulse Rate 58 L 03/30/20 19:01 Respiratory Rate 20 03/30/20 19:01 Blood Pressure 146/66 H 03/30/20 19:01 Pulse Oximetry 98 03/30/20 19:01 Medical Decision Making Vital Signs Vital Signs: Vital Signs Temperature 36.2 C L 03/30/20 16:43 Pulse Rate 74 03/30/20 16:43 Respiratory Rate 18 03/30/20 16:43 Blood Pressure 153/53 H 03/30/20 16:43 Pulse Oximetry 100 03/30/20 16:43 Temperature 36.6 C 03/30/20 16:54 Pulse Rate 58 L 03/30/20 19:01 Respiratory Rate 20 03/30/20 19:01 Blood Pressure 146/66 H 03/30/20 19:01 Pulse Oximetry 98 03/30/20 19:01 Lab Data Result diagrams: 03/30/20 16:56 03/30/20 16:56 Labs: Lab Results 03/30/20 03/30/20 03/30/20 Range/Units 16:56 16
[2020-03-30 17:28] LABS: Anion Gap 5 mmol/L (8-16); Blood Urea Nitrogen 20 mg/dL (7-17); Calcium 9.2 mg/dL (8.4-10.2); Carbon Dioxide 30 mmol/L (22-30); Chloride 103 mmol/L (98-107); Estimated CRCL calculation 49 ml/min; Estimated Glomerular Filt Rate 55; Glucose 183 mg/dL (65-105); Sodium 138 mmol/L (137-145)
[2020-03-30 17:31] LABS: Troponin I < 0.012 ng/mL (0.000-0.034)
[2020-03-30 17:58] LABS: Potassium 3.8 mmol/L (3.4-5.0)
--- NOTE | 2020-03-30 19:04 | PC.NURSE ---
report to [facility] at this time, he has assumed pt care.
[2020-03-30 20:09] LABS: Troponin I < 0.012 ng/mL (0.000-0.034)
== END 2020-03-30 20:48 | disposition home or self-care (01) ==
PROVIDERS: Emergency Provider Emergency Medicine; PCP Internal Medicine
DX: K21.9 Gastro-esophageal reflux disease without esophagitis (principal); R09.81 Nasal congestion; Z95.5 Presence of coronary angioplasty implant and graft; I10 Essential (primary) hypertension; I25.2 Old myocardial infarction; M06.9 Rheumatoid arthritis, unspecified; F17.210 Nicotine dependence, cigarettes, uncomplicated
CPT/HCPCS: 36415; 71045; 80048; 84484; 85025; 85610; 85730; 93005; 99284; A9270

== ENCOUNTER 2020-11-16 12:35 | Outpatient (CLI) | payer MEDICARE, SELFPAY ==
--- NOTE | ~2020-11-16 | US_ITS ---
US right upper quadrant DATE: 11/16/2020 13:50 INDICATION: Nausea TECHNIQUE: Real-time imaging of the liver, pancreas, gallbladder COMPARISON: 12/19/2019 right upper quadrant abdominal ultrasound FINDINGS: No hepatic space-occupying mass lesion. Normal hepatopedal portal venous flow direction. No hepatic or pancreatic space-occupying mass lesion is evident. No gallstones or gallbladder wall th ickening or abnormal pericholecystic fluid collection is detected. Negative sonographic Piper's sign . IMPRESSION: No significant abnormality Reviewed, dictated and finalized at Location A. Reviewed, dictated and finalized at location A. IMPRESSION: No significant abnormality
[2020-11-16 13:19] LABS: Hematocrit 45.2 % (37.0-47.0); Mean Corpuscular HGB Conc 33.2 g/dl (32-36); Mean Corpuscular Hemoglobin 31.4 pg (26-34); Mean Corpuscular Volume 94.8 fl (80-100); Mean Platelet Volume 11.9 fl (7.4-10.4); Platelet Count Result 244 k/mm3 (150-375); Red Blood Count 4.77 M/mm3 (4.2-5.4); Red Cell Distribution Width 13.7 % (11.5-14.5); White Blood Count 7.3 K/mm3 (4.5-10.0)
[2020-11-16 13:21] LABS: Add Urine Microscopic? NO; Appearance Urine Clear (Clear); Bilirubin Urine Negative (Negative); Blood Urine Negative (Negative); Color Urine Straw (Yellow); Glucose Urine UA Negative (Negative); Ketones Urine Negative (Negative); Leukocyte Esterase Ur Negative LEU/UL (NEGATIVE); Nitrate Urine Negative (Negative); Protein Urine Negative (Negative); Urobilinogen Urine Negative mg/dL (<2.0)
[2020-11-16 13:26] LABS: Specific Grav Ur 1.004 (1.001-1.035)
[2020-11-16 13:32] LABS: Alanine Aminotransferase 15 U/L (4-35); Albumin Level 4.3 g/dL (3.5-5.1); Alkaline Phosphatase 90 U/L (38-126); Amylase 67 U/L (30-110); Anion Gap 4 mmol/L (8-16); Aspartate Amino Transferase 21 U/L (14-36); Bilirubin,Total 0.5 mg/dL (0.2-1.3); Blood Urea Nitrogen 14 mg/dL (7-17); Calcium 9.5 mg/dL (8.4-10.2); Carbon Dioxide 33 mmol/L (22-30); Chloride 101 mmol/L (98-107); Estimated Glomerular Filt Rate 44; Glucose 108 mg/dL (65-110); Lipase 41 U/L (23-300); Potassium 4.4 mmol/L (3.4-5.0); Sodium 138 mmol/L (137-145)
== END 2020-11-16 12:36 | disposition home or self-care (01) ==
PROVIDERS: PCP Internal Medicine; Visit Provider Internal Medicine
DX: R10.11 Right upper quadrant pain (principal)
CPT/HCPCS: 36415; 76705; 80053; 81003; 82150; 83690; 85027

== ENCOUNTER 2021-10-12 10:48 | Outpatient (RCR) | payer MEDICARE, SELFPAY ==
--- NOTE | 2021-10-12 12:58 | PTOPEVAL ---
Thank you for referring Carlotta Morrow to [facility].? The patient is scheduled to be seen for therapy? __2__x/week 10 visits. Please review, sign, date and return this plan of care CARLOS. I agree with and certify that the following plan of care is medically necessary. Referring Physician Date Admitting Provider: Attending Provider: Keesha Goss MD Referring Provider: *PT Outpatient Evaluation Start: 10/12/21 10:18 Freq: Status: Active Protocol: Document 10/12/21 11:01 [facility] (Rec: 10/12/21 12:25 [facility] [id number]) Therapy Assessment Status Assessment Status Assessment Status Evaluation Outpatient Past Medical History Neurological History Hx Migraine Yes: ocular migraines Cardiovascular History Hx Hypertension Yes Respiratory History Hx Respiratory Disorders No Significant History Gastrointestinal History Hx Gastroesophageal Reflux Disease Yes Hx Other Gastrointestinal Disorders Yes: colon rupture requiring colostomy and repair Genitourinary History Hx Genitourinary Disorders No Significant History Musculoskeletal History Hx Rheumatoid Arthritis Yes Hx Other Musculoskeletal Disorders Yes: right rotator cuff tear Hematological History Hx Hematological Disorders No Significant History Endocrine History Hx Diabetes Yes: diet controlled HEENT History Hx HEENT Disorders No Significant History Integumentary History Hx Skin Disorders No Significant History Reproductive History Hx Reproductive Disorders No Significant History Psychosocial History Hx Psychiatric Disorders No Significant History Pain History History of Any Previous or Ongoing No Significant History Instance of Pain Anesthesia History Hx Anesthesia Reactions No Significant History Evaluation Information Problem Diagnosis L shoulder pain Onset 10/12/21 Subjective Information Pt reports that in the past 6 Query Text:As Reported By Patient/ months, L shoulder pain began Family with insidious onset and has been slowly worsening with time. She experiences discomfort when reaching behind back for seatbelt or putting on bra. She also reports difficulty when reaching out to the side or performing boom tender such as vacuuming or sweeping. Denies numbness/tingling, does report some weakness sensation when she has high
--- NOTE | 2021-11-25 12:10 | PTOPEVAL ---
Thank you for referring Carlotta Morrow to [facility].? The patient is scheduled to be seen for therapy? 2x/week for 6 visits. Please review, sign, date and return this plan of care CARLOS. I agree with and certify that the following plan of care is medically necessary. Referring Physician Date Admitting Provider: Attending Provider: Keesha Goss MD Referring Provider: *PT Outpatient Evaluation Start: 10/12/21 10:18 Freq: Status: Active Protocol: Document 11/25/21 10:55 [facility] (Rec: 11/25/21 12:08 [facility] [id number]) Therapy Assessment Status Assessment Status Assessment Status Progress Outpatient Past Medical History Neurological History Hx Migraine Yes: ocular migraines Cardiovascular History Hx Hypertension Yes Respiratory History Hx Respiratory Disorders No Significant History Gastrointestinal History Hx Gastroesophageal Reflux Disease Yes Hx Other Gastrointestinal Disorders Yes: colon rupture requiring colostomy and repair Genitourinary History Hx Genitourinary Disorders No Significant History Musculoskeletal History Hx Rheumatoid Arthritis Yes Hx Other Musculoskeletal Disorders Yes: right rotator cuff tear Hematological History Hx Hematological Disorders No Significant History Endocrine History Hx Diabetes Yes: diet controlled HEENT History Hx HEENT Disorders No Significant History Integumentary History Hx Skin Disorders No Significant History Reproductive History Hx Reproductive Disorders No Significant History Psychosocial History Hx Psychiatric Disorders No Significant History Pain History History of Any Previous or Ongoing No Significant History Instance of Pain Anesthesia History Hx Anesthesia Reactions No Significant History Evaluation Information Problem Diagnosis L shoulder pain Onset 10/12/21 Subjective Information Pt reports she feels a lot Query Text:As Reported By Patient/ better in many ways but is Family still noticing difficulty with several motions, especially out to the side when reaching back for her seatbelt. She denies pain anymore, but notices discomfort with many activities. Pain Assessment Timing of Pain Assessment Timing of Pain Assessment Pre-Treatment Pain Scale Pain Scale Used Numeric (1 - 10) Self Report Pain Assessment Left Shoulder(s) Reported Pain Level 0 Pain Score Pain Score 0: Self Report Interventions Used Interventions Used By Clinicians Activity or ADL's,Education,
== END 2021-12-27 14:36 | disposition home or self-care (01) ==
LOC: CHSPT 10:48
PROVIDERS: PCP Internal Medicine; Visit Provider Internal Medicine
DX: M25.512 Pain in left shoulder (principal)
CPT/HCPCS: 97014; 97110; 97140; 97161; G0283

== ENCOUNTER 2021-11-30 10:35 | Outpatient (CLI) | payer MEDICARE, SELFPAY ==
--- NOTE | ~2021-11-30 | XR_ITS ---
XR shoulder LT min 2V DATE: 11/30/2021 11:13 INDICATION: Left shoulder pain TECHNIQUE: 4 views COMPARISON: None FINDINGS: No fracture or dislocation, periosteal reaction or bone destruction. There is degenerative joint space narrowing and spurring at the left acromioclavicular joint. No periosteal reaction or bone destruction. No abnormal left shoulder soft tissue calcification. Multilevel degenerative disc disease of the cervical spine. There is levoscoliosis and degenerative spurring of the thoracic spine. IMPRESSION: Degenerative change at the acromioclavicular joint Osteopenia No fracture or dislocation or abnormal soft tissue calcification of left shoulder Reviewed, dictated and finalized at location B. IMPRESSION: Degenerative change at the acromioclavicular joint Osteopenia No fracture or dislocation or abnormal soft tissue calcification of left should er
== END 2021-11-30 10:36 | disposition home or self-care (01) ==
LOC: ANHIMG 10:43
PROVIDERS: PCP Internal Medicine; Visit Provider Internal Medicine
DX: M25.511 Pain in right shoulder (principal); M85.812 Other specified disorders of bone density and structure, left shoulder
CPT/HCPCS: 73030

== ENCOUNTER 2022-01-28 10:29 | Outpatient (CLI) | payer MEDICARE, SELFPAY ==
--- NOTE | ~2022-01-28 | MR_ITS ---
EXAMINATION: MR shoulder LT wo con DATE: 01/28/2022 12:09 INDICATION: Left shoulder pain. TECHNIQUE: Magnetic resonance imaging (MRI) of the left shoulder was performed without intravenous co ntrast. Sequences included axial PD-weighted FS FSE, coronal oblique PD-weighted FS FSE and T2-weight ed FS FSE, and sagittal oblique T2-weighted FS FSE and T1-weighted FSE. COMPARISON: Left shoulder radiographs 11/30/2021 FINDINGS: Coracoacromial arch: The acromion undersurface is curved in morphology (type II). Subacromial spurring is noted. There is severe acromioclavicular joint osteoarthritis including inferiorly directed osteophytes. There is mil d subacromial/subdeltoid bursitis. Rotator cuff: There is moderate supraspinatus and infraspinatus tendinopathy. Teres minor tendon is normal. There i s mild subscapularis tendinopathy. No tear. There is no asymmetric fatty atrophy of the rotator cuff muscle bellies. Biceps tendon and glenoid labrum: Biceps tendon is in bicipital groove. There is mild intra-articular biceps tendinopathy. There is wid espread tearing of the glenoid labrum. Fluid: There is a small glenohumeral joint effusion. Bones/cartilage: There is shallow partial-thickness cartilage loss of glenoid and humeral head. Osteophytes are noted. IMPRESSION: 1. Moderate rotator cuff tendinopathy. No tear. 2. Mild glenohumeral joint chondrosis. 3. Severe acromioclavicular joint osteoarthritis. 4. Small glenohumeral joint effusion. 5. Mild intra-articular biceps tendinopathy. 6. Mild subacromial/subdeltoid bursitis. Reviewed, dictated and finalized at location A.
== END 2022-01-28 10:30 | disposition home or self-care (01) ==
PROVIDERS: PCP Internal Medicine; Visit Provider Internal Medicine
DX: M25.512 Pain in left shoulder (principal); M75.82 Other shoulder lesions, left shoulder; M94.8X2 Other specified disorders of cartilage, upper arm; M19.012 Primary osteoarthritis, left shoulder; M25.412 Effusion, left shoulder; M75.52 Bursitis of left shoulder
CPT/HCPCS: 73221

== ENCOUNTER 2022-04-07 08:45 | Outpatient (CLI) | payer MEDICARE, SELFPAY ==
--- NOTE | ~2022-04-07 | XR_ITS ---
XR knee RT min 4V DATE: 04/07/2022 09:11 INDICATION: Right knee pain. No known trauma. TECHNIQUE: Varnell, lateral and standing AP and PA views COMPARISON: None FINDINGS: There is mild loss of height of the medial compartment joint space. There is minimal periar ticular spurring of the patella. Mild superior pole patellar enthesopathy at quadriceps tendon insertion. No fracture or dislocation or joint effusion. No radiopaque intra-articular loose body or chondrocalc inosis. No periosteal reaction or bone destruction. IMPRESSION: Mild patellofemoral and medial compartment osteoarthritis Reviewed, dictated and finalized at location B. UNTING MANAGER CONTROLLER
== END 2022-04-07 08:46 | disposition home or self-care (01) ==
LOC: ANHLAB 08:49
PROVIDERS: PCP Internal Medicine; Visit Provider Internal Medicine
DX: M17.11 Unilateral primary osteoarthritis, right knee (principal)
CPT/HCPCS: 73564

== ENCOUNTER 2022-05-09 09:27 | Outpatient (CLI) | payer MEDICARE, SELFPAY ==
--- NOTE | ~2022-05-09 | MR_ITS ---
EXAMINATION: MR knee RT wo con DATE: 05/09/2022 11:05 INDICATION: Medial right knee pain TECHNIQUE: Magnetic resonance imaging (MRI) of the right knee was performed without intravenous contr ast. Sequences included coronal PD-weighted FSE, coronal PD-weighted FS FSE, sagittal T2-weighted FS E, sagittal PD-weighted FS FSE and axial PD weighted fat saturated FSE. COMPARISON: None. FINDINGS: Medial compartment: Complex tear at the posterior horn of the medial meniscus which includes a longitudinal horizontal te ar plane extending to the inferior articular surface and a second vertical oriented tear plane extend ing to the superior articular surface at the midportion of the posterior horn. Partial-thickness lior dral ulceration extending across the central weightbearing medial femoral condyle. There is prominent subarticular marrow edema centered along a 9 x 5 mm region of linear subarticular low signal suggest ing a stress fracture at the medial side of the anterior weightbearing medial femoral condyle which m ay be related to altered weight distribution resulting from the meniscal tear. Lateral compartment: Lateral meniscus is normal. Articular cartilage is normal. Patellofemoral compartment: Deep chondral ulceration and placed likely reaching full thickness centered at the patellar apical ri dge and immediately adjacent medial and lateral patellar facets. There is subtle underlying cortical irregularity and minimal subarticular edema-like signal change at the apical ridge. Trochlear cartila ge appears relatively preserved. Ligaments and tendons: Anterior and posterior cruciate ligaments are normal. The fibular collateral ligament complex is norm al. There is prominent edema in the fat underlying the medial patellofemoral retinaculum and the ante rior margin of the medial collateral ligament which appear otherwise normal and no more superficial e nicci suggesting this is more likely reactive related to adjacent subarticular fracture at the medial femoral condyle rather than due to a low-grade sprain of the medial collateral ligament. The extensor mechanism is normal. The visualized medial and lateral hamstring tendons as well as the iliotibial b and are normal. Fluid: Small right knee joint effusion at the medial and lateral gutters of the suprapatellar pouch. No loos e osteochondral bodies identified. Trace moderate fluid in the small Anna's cyst. IMPRESSION: 1. Complex tear at the posterior horn of the medial meniscus. 2. Prominent marrow edema surrounding a small linear subarticular likely stress fracture at the media l aspect of the anterior weightbearing medial femoral condyle which could be related to altered weigh t distribution resulting from the meniscal tear. 3. Mild medial and patellofemoral osteoarthritis with moderate grade chondromalacia at the central we ightbearing medial femoral condyle and moderate to high-grade patellar chondromalacia centered along the apical ridge. 4. Focal soft tissue tissue edema deep to the otherwise normal-appearing medial patellofemoral retina culum and medial collateral ligament likely reactive related to the stress fracture rather than due t o low-grade sprain. 5. Likely reactive small right knee joint effusion. Reviewed, dictated and finalized at location A. ROUTER HAND IMPRESSION: 1. Complex tear at the posterior horn of the medial meniscus. 2. Prominent marrow edema surrounding a small linear subarticular likely stress fracture at the medial aspect of the anterior weightbearing medial femoral con dyle which could be related to altered weight distribution resulting from the m eniscal tear. 3. Mild medial and patellofemoral osteoarthritis with moderate grade chondromal acia at the central weightbearing medial femora
== END 2022-05-09 09:28 | disposition home or self-care (01) ==
PROVIDERS: PCP Internal Medicine; Visit Provider Internal Medicine
DX: M25.561 Pain in right knee (principal); S83.231A Complex tear of medial meniscus, current injury, right knee, initial encounter; M79.89 Other specified soft tissue disorders; M17.11 Unilateral primary osteoarthritis, right knee; M94.261 Chondromalacia, right knee; M25.461 Effusion, right knee
CPT/HCPCS: 73721

== ENCOUNTER 2022-07-11 15:10 | Outpatient (CLI) | payer MEDICARE, SELFPAY ==
--- NOTE | ~2022-07-11 | CT_ITS ---
EXAMINATION: CT abdomen pelvis w con DATE: 07/11/2022 16:01 INDICATION: Right lower quadrant abdominal pain TECHNIQUE: Computed tomography (CT) of the abdomen and pelvis was performed with 100 mL Omnipaque-350 intravenous contrast. Automated exposure control and iterative reconstruction technique were employe d. The dose-length product was 1078.16 mGy-cm. COMPARISON: None FINDINGS: Calcified right middle lobe nodule consistent with old granulomatous disease. Heart size is normal. A therosclerotic coronary artery calcifications. No pericardial or pleural effusion. Liver, gallbladder , spleen, pancreas, bilateral kidneys and left adrenal gland are normal. 1.3 cm low-attenuation right adrenal adenoma. There are a few separate left paramedian ventral hernia s, the largest at the level of the umbilicus containing a short segment of nonobstructed transverse c olon. There is some inflammatory stranding in the fat surrounding the herniated segment of colon. The re is also inflammatory stranding associated with a small fat-containing umbilical hernia. Colonic an astomosis immediately distal to the exit from the hernia. There is additional colonic anastomosis at the sigmoid colon. Small bowel is normal with no obstruction. The appendix is not visualized. No evonne cecal inflammatory change to suggest acute appendicitis. Bladder is normal. The uterus is not identif ied and has likely been surgically resected. No free intraperitoneal gas or fluid. No pathologically enlarged abdominal or pelvic lymphadenopathy. Severe lumbar spondylosis. IMPRESSION: 1. Inflammatory stranding in the fat within a small fat-containing umbilical hernia as well as within an adjacent larger left paraumbilical ventral hernia containing a short segment of the nonobstructed colon. Reviewed, dictated and finalized at location B. IMPRESSION: 1. Inflammatory stranding in the fat within a small fat-containing umbilical he rnia as well as within an adjacent larger left paraumbilical ventral hernia con taining a short segment of the nonobstructed colon.
[2022-07-11 15:55] LABS: Estimated Glomerular Filt Rate 54
== END 2022-07-11 15:11 | disposition home or self-care (01) ==
PROVIDERS: PCP Internal Medicine; Visit Provider Internal Medicine
DX: K42.9 Umbilical hernia without obstruction or gangrene (principal); K43.9 Ventral hernia without obstruction or gangrene; R10.31 Right lower quadrant pain
CPT/HCPCS: 74177; Q9967

== ENCOUNTER 2022-07-31 10:46 | Emergency (ER) | payer MEDICARE, SELFPAY ==
[2022-07-31 11:57] LABS: Glucose Point of Care 113 mg/dl (65-105)
[2022-07-31 11:58] VITALS: BP 160/60; PULSE 58; RESP 18; TEMP 36.7; O2SAT 96
--- NOTE | 2022-07-31 12:14 | PC.NURSE ---
Pt states she is a diabetic but is controlled by diet.
--- NOTE | 2022-07-31 12:26 | ED.DIZZY ---
HPI - Dizziness General Chief Complaint: Dizziness Stated Complaint: weak, shakey, nausea Source: patient Mode of arrival: ambulatory Limitations: no limitations History of Present Illness HPI Narrative: 72 year old female presents to the Emergency Department complaining of feeling weak, dizzy. Feels like ears congested. Having sinus congestion and drainage. feels nauseous. Denies headache, visual changes. Denies chest pain, shortness of breath. Denies vomiting or diarrhea. Denies urinary tract symptoms. Denies fever. MD elicited complaint: dizziness and disequilibrium Onset (ago): hour(s) Timing: awoke with symptoms and episodic Severity: moderate Description: room spinning and off-balance Exacerbating factors: movement/ambulation Relieving factors: remaining still Associated symptoms: nasal congestion, ear discomfort and ear fullness Stroke scale total: 0 Related Data Home Medications Medication Instructions Recorded Confirmed hydroxychloroquine 200 mg tablet 200 mg PO BID 12/25/19 07/31/22 losartan 50 mg-hydrochlorothiazide 1 tablet PO DAILY 12/25/19 07/31/22 12.5 mg tablet methotrexate sodium 2.5 mg tablet 5 mg PO WEEKLY 12/25/19 07/31/22 multivitamin with minerals-folic 0.4 mg PO DAILY 12/25/19 07/31/22 acid 0.4 mg tablet (Adult One Daily Multivitamin) Allergies Allergy/AdvReac Type Severity Reaction Status Date / Time piperacillin Allergy Unknown RASH, Verified 07/31/22 12:05 HIVES,ITCHING Sulfa (Sulfonamide Allergy Unknown RASH/HIVES Verified 07/31/22 12:05 Antibiotics) tazobactam Allergy Unknown RASH, Verified 07/31/22 12:05 HIVES,ITCHING Review of Systems Review of Systems: All systems reviewed & are unremarkable except as noted in HPI and below Constitutional: Constitutional: Reports as per HPI, Reports no additional constitutional complaints, Denies chills, Denies fever(s) and Denies weakness Eyes: Eyes: Reports as per HPI, Reports no additional eye complaints, Denies change in vision and Denies photophobia ENT: Reports system reviewed and no additional complaints, except as documented, Reports as per HPI, Reports vertigo, Reports dizziness and Reports nasal congestion Comments: sinus congestion and drainage Cardiovascular: Cardiovascular: Reports as per HPI, Reports no additional cardiovascular complaints, Denies chest pain and Denies rapid heart rate Respiratory: Respiratory: Reports as per HPI, Reports no additional respiratory complaints, Denies chest congestion, Denies cough and Denies dyspnea Gastrointestinal: Gastrointestinal: Reports as per HPI, Reports no additional gastrointestinal complaints, Denies diarrhea, Reports nausea and Denies vomiting Genitourinary: Genitourinary: Reports no additional female genitourinary complaints, Reports as per HPI, Denies nocturia and Denies dysuria Musculoskeletal: Musculoskeletal: Reports no additional musculoskeletal complaints Integumentary/Breasts: Skin/Breast: Reports system reviewed and no additional complaints, except as docu, Reports as per HPI and Denies rash Neurologic: Reports system reviewed and no additional complaints, except as documented, Reports as per HPI, Denies confusion, Reports vertigo, Reports dizziness, Denies syncope, Denies headache(s), Denies focal weakness, Denies numbness and Denies weakness Psychiatric: Psychiatric: Reports no additional psychiatric complaints Endocrine: Endocrine: Reports no additional endocrine complaints Hematologic/Lymphatic: Hematologic/Lymphatic: Reports no additional hematologic/lymphatic complaints Allergic/Immunologic: Allergic/Immunologic: Reports no additional allergic/immunologic complaints [facility] Past Medical History Medical History GERD (gastroesophageal reflux disease) Glucose intolerance Hypertension Non-STEMI (non-ST elevated myocardial infarction) Rheumatoid arthritis Surgical History Surgical History
[2022-07-31 13:17] LABS: Influenza A QL RT-PCR Negative (Negative); Influenza B QL RT-PCR Negative (Negative); RSV RNA, RT-PCR Negative (Negative); SARS-CoV-2 RNA PCR Negative (Negative)
[2022-07-31 13:23] VITALS: BP 156/59; PULSE 67; RESP 18; TEMP 36.1; O2SAT 96
--- NOTE | 2022-07-31 13:43 | PC.NURSE ---
Pt updated, waiting on discharge papers.
== END 2022-07-31 13:50 | disposition home or self-care (01) ==
PROVIDERS: Emergency Provider Emergency Medicine; PCP Internal Medicine
DX: J01.90 Acute sinusitis, unspecified (principal); H83.09 Labyrinthitis, unspecified ear; I10 Essential (primary) hypertension; I25.2 Old myocardial infarction; F17.210 Nicotine dependence, cigarettes, uncomplicated; Z20.822 Contact with and (suspected) exposure to COVID-19
CPT/HCPCS: 82948; 87637; 99283

== ENCOUNTER 2022-08-02 13:53 | Outpatient (CLI) | payer MEDICARE, SELFPAY ==
--- NOTE | ~2022-08-02 | MR_ITS ---
EXAMINATION: MR lumbar spine wo con DATE: 08/02/2022 14:47 INDICATION: Lumbar radiculopathy TECHNIQUE: Magnetic resonance imaging (MRI) of the lumbar spine was performed without intravenous con trast. Sequences included sagittal T2-weighted FSE, sagittal T2-weighted FS FSE, sagittal T1-weighted FSE, and axial T2-weighted FSE. COMPARISON: None FINDINGS: S-shaped thoracolumbar scoliosis with 11 degree lumbar levoscoliosis and 10 degrees lower thoracic de xtroscoliosis. Sagittal alignment is normal. Vertebral body heights are normal. Severe disc height lo ss with associated fibrovascular and fibrofatty degenerative endplate changes at T12-L1 and L2-L3 thr ough L4-L5. Mild to moderate left-sided predominant disc height loss at L1-L2. Disc desiccation witho ut significant disc height loss at L5-S1. No pathologic marrow replacing process. The conus medullari s terminates at L2. There is normal signal in the caudal spinal cord. Paravertebral soft tissues are unremarkable. The following disc levels are specifically discussed: T12-L1: Disc is bulging. There is moderate bilateral facet joint osteoarthritis. There is mild bilate ral, left greater than right neural foraminal stenosis. There is mild central canal stenosis. L1-L2: Disc is bulging. There is mild left and moderate right facet joint osteoarthritis. There is mi ld bilateral, left greater than right neural foraminal stenosis. There is mild central canal stenosis . L2-L3: Disc is bulging. There is moderate bilateral facet joint osteoarthritis. There is mild left an d mild to moderate right neural foraminal stenosis. There is moderate central canal stenosis. L3-L4: Disc is bulging. There is hypertrophy of the ligamentum flavum. There is moderate left and sev ere right facet joint osteoarthritis. There is mild left and moderate right neural foraminal stenosis . There is moderate central canal stenosis. L4-L5: Disc is bulging. There is hypertrophy of the ligamentum flavum. There is moderate bilateral f acet joint osteoarthritis. There is mild to moderate left and moderate right neural foraminal stenosi s. There is mild central canal stenosis. L5-S1: Bilateral foraminal zone disc protrusions, left greater than right. There is severe bilateral facet joint osteoarthritis. There is mild bilateral neural foraminal stenosis. There is mild central canal stenosis. IMPRESSION: 1. Mild S-shaped thoracolumbar scoliosis with severe lumbar spondylosis. Reviewed, dictated and finalized at location [facility].
== END 2022-08-02 13:54 | disposition home or self-care (01) ==
PROVIDERS: PCP Internal Medicine; Visit Provider Internal Medicine
DX: M47.26 Other spondylosis with radiculopathy, lumbar region (principal); M41.9 Scoliosis, unspecified
CPT/HCPCS: 72148

== ENCOUNTER 2022-12-08 13:00 | Outpatient (CLI) | payer MEDICARE, SELFPAY ==
--- NOTE | ~2022-12-08 | CT_ITS ---
EXAMINATION: CT lung screening DATE: 12/08/2022 13:26 INDICATION: PERSONAL HX OF NICOTINE DEPENDENCE TECHNIQUE: Computed tomography (CT) of the chest was performed without intravenous contrast. Addition al 3D reconstructions utilizing coronal maximum intensity projection (MIP) were performed. Automated exposure control and iterative reconstruction technique were employed. The dose-length product was 32 7.18 mGy-cm. COMPARISON: 02/17/2020 FINDINGS: Mild emphysema. Calcified right middle lobe nodule consistent with old granulomatous disease. No sign ificant interval change in a few additional small bilateral noncalcified pulmonary nodules, the large st measuring 5 mm in the left upper lobe and the remainder <3 mm. There is also unchanged flat 5 mm l ikely intrafissural lymph node along the right minor fissure. No new or enlarging pulmonary nodules, pulmonary edema, pneumonia or pleural effusion. Heart size is normal. Atherosclerotic coronary artery calcification and possible right coronary artery stenting. No pericardial effusion. Thoracic aorta i s normal. No pathologically enlarged thoracic lymphadenopathy. 1.5 cm low-attenuation right adrenal a denoma. Moderate thoracic and severe upper lumbar spondylosis. IMPRESSION: 1. Lung-RADS category 2: Benign appearance or behavior. Continue annual screening with noncontrast lo w-dose chest CT in 12 months. Reviewed, dictated and finalized at [facility]. IMPRESSION: 1. Lung-RADS category 2: Benign appearance or behavior. Continue annual screeni ng with noncontrast low-dose chest CT in 12 months.
== END 2022-12-08 13:01 | disposition home or self-care (01) ==
PROVIDERS: PCP Internal Medicine; Visit Provider Internal Medicine
DX: Z12.2 Encounter for screening for malignant neoplasm of respiratory organs (principal); Z87.891 Personal history of nicotine dependence
CPT/HCPCS: 71271

== ENCOUNTER 2023-05-30 16:06 | Emergency (ER) | payer MEDICARE, SELFPAY ==
[2023-05-30] VITALS (26 sets, daily range): BP systolic 162–204; BP diastolic 59–89; PULSE 67–85; RESP 12–28; TEMP 36.2–36.4; O2SAT 91–97
--- NOTE | ~2023-05-30 | CT_ITS ---
EXAMINATION: CT brain wo con DATE: 05/30/2023 16:40 INDICATION: Dizziness today TECHNIQUE: Computed tomography (CT) of the head was performed without intravenous contrast. The mA wa s adjusted according to patient size. Iterative reconstruction technique was employed. Exam dose: 68 1.00 mGy-cm total exam DLP. COMPARISON: None FINDINGS: No intracranial mass lesion or hemorrhage or cerebrovascular accident. No midline shift or mass effect. Bilateral carotid siphon internal carotid artery calcifications. Normal ventricular size. No subdural or epidural hematoma. The orbital contents are unremarkable. Polyp or mucous retention cyst is noted in the floor of each maxillary sinus. The paranasal sinuses a nd mastoid air cells are otherwise normally aerated. No fracture or bone destruction of the cranial vault. IMPRESSION: Bilateral carotid siphon internal carotid artery calcifications align no acute intracran ial abnormality Bilateral maxillary sinus polyps or mucous retention cysts Reviewed, dictated and finalized at [facility]. Reviewed, dictated and finalized at [facility]. TIC WELDER IMPRESSION: Bilateral carotid siphon internal carotid artery calcifications al ign no acute intracranial abnormality Bilateral maxillary sinus polyps or mucous retention cysts
--- NOTE | 2023-05-30 16:12 | ECG_ITS ---
Measurements Intervals [place] Rate: 73 P: 31 UT: 153 QRS: 9 QRSD: 90 T: 24 QT: 396 QTc: 437 Interpretive Statements SINUS RHYTHM NORMAL ECG COMPARED TO ECG 03/30/2020 16:53:12 NO SIGNIFICANT CHANGES Electronically Signed On 05-30-2023 16:36:12 WATCH AND CLOCK MAKER AND REPAIRER by Anurag Mercedes D.O.
--- NOTE | 2023-05-30 16:20 | ED.NEUROSD ---
HPI - Neuro Symptoms/Deficit General Chief Complaint: Upper Respiratory Infection Stated Complaint: dizzy Time Seen by Provider: 05/30/23 16:11 Source: patient Mode of arrival: ambulatory Limitations: no limitations History of Present Illness HPI Narrative: patient is a 73-year-old female with multiple medication changes to her regimen. Her primary doctor added a statin and changed her blood pressure medication lately. She started to feel not well today with all her new medication adjustments. She started to have some dizziness and not feeling well. Her symptoms were total body fatigue and weakness as well as some dizziness. Nothing was focal of a complaint. Onset (ago): day(s) (1) History of same: No Severity: mild Quality: weak and improving Relieving factors: time Exacerbating factors: medication Context: gradual onset On Anticoagulants: No Associated symptoms: malaise Treatments Prior to Arrival: none Related Data Home Medications Medication Instructions Recorded Confirmed indapamide 1.25 mg tablet 1.25 mg PO DAILY 05/30/23 05/30/23 losartan 100 mg tablet 100 mg PO DAILY 05/30/23 05/30/23 meloxicam 15 mg tablet 15 mg PO DAILY 05/30/23 05/30/23 metoprolol tartrate 25 mg tablet 25 mg PO BID 05/30/23 05/30/23 pantoprazole 40 mg tablet,delayed 40 mg PO DAILY 05/30/23 05/30/23 release pioglitazone 15 mg tablet 7.5 mg PO DAILY 05/30/23 05/30/23 rosuvastatin 5 mg tablet 5 mg PO DAILY 05/30/23 05/30/23 sucralfate 1 gram tablet 1 g PO QID 05/30/23 05/30/23 Allergies Allergy/AdvReac Type Severity Reaction Status Date / Time piperacillin Allergy Unknown RASH, Verified 05/30/23 16:18 HIVES,ITCHING Sulfa (Sulfonamide Allergy Unknown RASH/HIVES Verified 05/30/23 16:18 Antibiotics) tazobactam Allergy Unknown RASH, Verified 05/30/23 16:18 HIVES,ITCHING Review of Systems Review of Systems: All systems reviewed & are unremarkable except as noted in HPI and below Constitutional: Constitutional: Reports no additional constitutional complaints Eyes: Eyes: Reports no additional eye complaints ENT: Reports system reviewed and no additional complaints, except as documented Cardiovascular: Cardiovascular: Reports no additional cardiovascular complaints Respiratory: Respiratory: Reports no additional respiratory complaints Gastrointestinal: Gastrointestinal: Reports no additional gastrointestinal complaints Genitourinary: Genitourinary: Reports no additional female genitourinary complaints Musculoskeletal: Musculoskeletal: Reports no additional musculoskeletal complaints Integumentary/Breasts: Skin/Breast: Reports system reviewed and no additional complaints, except as docu Neurologic: Reports system reviewed and no additional complaints, except as documented Psychiatric: Psychiatric: Reports no additional psychiatric complaints Endocrine: Endocrine: Reports no additional endocrine complaints Hematologic/Lymphatic: Hematologic/Lymphatic: Reports no additional hematologic/lymphatic complaints Allergic/Immunologic: Allergic/Immunologic: Reports no additional allergic/immunologic complaints PMFSH Past Medical History Medical History GERD (gastroesophageal reflux disease) Glucose intolerance Hypertension Non-STEMI (non-ST elevated myocardial infarction) Rheumatoid arthritis Surgical History Surgical History H/O hysterectomy for benign disease History of coronary artery stent placement S/P colon resection Family History Family History Sibling Diabetes mellitus Stented coronary artery Social History Social History Years smoked: 50 Smoking status: Current every day smoker Tobacco type: cigarettes Second hand tobacco smoke exposure: Yes Alcohol intake: never Substance
[2023-05-30 16:40] LABS: Appearance Urine Clear (Clear); Bilirubin Urine Negative (Negative); Blood Urine Negative (Negative); Color Urine Light Yellow (Yellow); Glucose Urine UA Negative (Negative); Ketones Urine Negative (Negative); Leukocyte Esterase Ur Negative LEU/UL (Negative); Nitrate Urine Negative (Negative); Protein Urine Negative (Negative); Urobilinogen Urine 0.2 mg/dL (0.2-1.0); pH Urine 6.5 (5.0-8.0)
[2023-05-30 16:43] LABS: Add Urine Microscopic? NO
[2023-05-30 17:17] LABS: Basophils Absolute Auto 0.06 K/mm3 (0.00-0.10); Basophils Percent Auto 0.7 % (0.0-1.0); Eosinophils Absolute Auto 0.36 K/mm3 (0.02-0.50); Eosinophils Percent Auto 4.4 % (1.0-6.0); Hematocrit 43.8 % (35.0-42.0); Immature Granulocyte Absolute 0.03 K/mm3 (0.00-0.00); Immature Granulocyte Percent A 0.4 % (0.0-0.0); Lymphocytes Percent Auto 35.8 % (18.0-42.0); Mean Corpuscular Hemoglobin 28.6 pg (27.0-31.0); Mean Corpuscular Volume 89.6 fL (78.0-102.0); Mean Platelet Volume 11.7 fl (9.2-11.8); Monocytes Absolute Auto 0.65 K/mm3 (0.10-0.90); Neutrophils Absolute Auto 4.1 K/mm3 (1.7-7.2); Neutrophils Percent Auto 50.7 % (50.0-70.0); Platelet Count Result 219 K/mm3 (150-420); Red Blood Count 4.89 M/mm3 (4.20-5.40); Red Cell Distribution Width 13.5 % (11.6-14.4); White Blood Count 8.1 K/mm3 (4.8-10.8)
[2023-05-30 17:33] LABS: Partial Thromboplastin Time 24.8 SEC (23.90-30.70); Prothrombin Time 10.6 Seconds (9.50-12.10)
[2023-05-30 17:36] LABS: Alanine Aminotransferase 16 U/L (14-59); Albumin Level 3.2 g/dL (3.4-5.0); Alkaline Phosphatase 102 U/L (46-116); Anion Gap 9 mmol/L (8-16); Aspartate Amino Transferase 12 U/L (15-37); Bilirubin,Total 0.4 mg/dL (0.00-1.00); Blood Urea Nitrogen 21 mg/dL (7-18); Calcium 9.2 mg/dL (8.5-10.1); Carbon Dioxide 29 mmol/L (21-32); Chloride 104 mmol/L (98-108); Estimated CRCL calculation 49 ml/min; Estimated Glomerular Filt Rate 55; Glucose 106 mg/dL (70-99); Osmolality Calculated 297 mOsm/kg (285-295); Potassium 4.1 mmol/L (3.5-5.1); Sodium 142 mmol/L (136-145); Total Protein 6.7 g/dL (6.4-8.2); Troponin I 9.8 ng/L (0.00-60.4)
[2023-05-30 18:18] LABS: SARS-CoV-2 RNA PCR Negative (Negative)
[2023-05-30 18:19] LABS: Influenza A QL RT-PCR Negative (Negative); Influenza B QL RT-PCR Negative (Negative); RSV RNA, RT-PCR Negative (Negative)
[2023-05-30 18:44] LABS: Creatine Kinase 58 U/L (26-192)
== END 2023-05-30 18:56 | disposition home or self-care (01) ==
PROVIDERS: Emergency Provider Emergency Medicine; PCP Internal Medicine
DX: R53.1 Weakness (principal); R42 Dizziness and giddiness; I10 Essential (primary) hypertension; I25.2 Old myocardial infarction; M06.9 Rheumatoid arthritis, unspecified; F17.210 Nicotine dependence, cigarettes, uncomplicated; Z79.899 Other long term (current) drug therapy; Z79.1 Long term (current) use of non-steroidal anti-inflammatories (NSAID); Z20.822 Contact with and (suspected) exposure to COVID-19
CPT/HCPCS: 36415; 70450; 80053; 81003; 82550; 84484; 85025; 85610; 85730; 87637; 93005; 99284

== ENCOUNTER 2023-06-07 14:47 | Emergency (ER) | payer MEDICARE, SELFPAY ==
[2023-06-07 14:54] VITALS: BP 141/61; PULSE 81; RESP 19; TEMP 36.9; O2SAT 95
--- NOTE | 2023-06-07 15:11 | ED.NAVMDI ---
HPI - Nausea/Vomiting/Diarrhea General Chief complaint: Upper Respiratory Infection Stated complaint: URI Time Seen by Provider: 06/07/23 14:53 Source: patient Mode of arrival: ambulatory Limitations: no limitations History of Present Illness HPI Narrative: 73-year-old female, smoker with a history of hypertension, GERD, RA, colon resection, CAD status post stent, presented to the ER on 05/30/2023 for dizziness and upper respiratory symptoms. The patient tested negative for influenza/ RSV/ COVID. She had a normal troponin without any acute EKG changes. Patient had chronic nasal congestion for which she went on to have a CT of the sinuses which revealed bilateral maxillary sinus polyps with retention cysts. The patient has been started on Ceftin. The patient presents to the ER with a 1 day history of -- nausea with multiple episodes of vomiting since yesterday. -- Multiple episodes of large volume diarrhea. -- Throat pain -- sinus headache -- right ear fullness. no hearing loss. No ear discharge. MD elicited complaint: vomiting and diarrhea Onset (ago): day(s) ( One day) Description of vomiting: watery Description of diarrhea: watery Associated nausea: No Associated abdominal pain: No Location of pain: none Radiation: diffuse Pain consistency: constant Exacerbating factors: none Relieving factors: none Context: recent antibiotic use Associated symptoms: denies other symptoms Related Data Home Medications Medication Instructions Recorded Confirmed indapamide 1.25 mg tablet 1.25 mg PO DAILY 05/30/23 06/07/23 losartan 100 mg tablet 100 mg PO DAILY 05/30/23 06/07/23 meloxicam 15 mg tablet 15 mg PO DAILY 05/30/23 06/07/23 metoprolol tartrate 25 mg tablet 25 mg PO BID 05/30/23 06/07/23 pantoprazole 40 mg tablet,delayed 40 mg PO BID 05/30/23 06/07/23 release pioglitazone 15 mg tablet 7.5 mg PO DAILY 05/30/23 06/07/23 sucralfate 1 gram tablet 1 g PO QID 05/30/23 06/07/23 Allergies Allergy/AdvReac Type Severity Reaction Status Date / Time piperacillin Allergy Unknown RASH, Verified 05/30/23 16:18 HIVES,ITCHING Sulfa (Sulfonamide Allergy Unknown RASH/HIVES Verified 05/30/23 16:18 Antibiotics) tazobactam Allergy Unknown RASH, Verified 05/30/23 16:18 HIVES,ITCHING Review of Systems Review of Systems: All systems reviewed & are unremarkable except as noted in HPI and below Constitutional: Constitutional: Reports as per HPI, Reports no additional constitutional complaints, Reports anorexia and Reports headache(s) Eyes: Eyes: Reports as per HPI ENT: Reports system reviewed and no additional complaints, except as documented, Reports post nasal drip and Reports sore throat Comments: right ear fullness Cardiovascular: Cardiovascular: Reports as per HPI and Reports no additional cardiovascular complaints Respiratory: Respiratory: Reports as per HPI and Reports no additional respiratory complaints Gastrointestinal: Gastrointestinal: Reports as per HPI, Reports no additional gastrointestinal complaints, Reports diarrhea and Reports vomiting Genitourinary: Genitourinary: Reports no additional female genitourinary complaints and Reports as per HPI Musculoskeletal: Musculoskeletal: Reports no additional musculoskeletal complaints and Reports as per HPI Integumentary/Breasts: Skin/Breast: Reports system reviewed and no additional complaints, except as docu and Reports as per HPI Neurologic: Reports system reviewed and no additional complaints, except as documented and Reports as per HPI Psychiatric: Psychiatric: Reports no additional psychiatric complaints and Reports as per HPI Endocrine: Endocrine: Reports no additional endocrine complaints and Reports as per HPI Hematologic/Lymphatic: Hematologic/Lymphatic: Reports no additional hematologic/lymphatic complaints and Reports as per HPI Allergic/Immunologic: Allergic/Immunologic: Reports no additional allergic/immunologic complaints and Reports as
[2023-06-07 15:25] LABS: Basophils Absolute Auto 0.06 K/mm3 (0.00-0.10); Basophils Percent Auto 0.3 % (0.0-1.0); Eosinophils Absolute Auto 0.11 K/mm3 (0.02-0.50); Eosinophils Percent Auto 0.6 % (1.0-6.0); Hematocrit 43.9 % (35.0-42.0); Hemoglobin 14.3 g/dL (11.7-13.8); Immature Granulocyte Absolute 0.09 K/mm3 (0.00-0.00); Immature Granulocyte Percent A 0.5 % (0.0-0.0); Lymphocytes Absolute Auto 3.03 K/mm3 (1.10-4.50); Lymphocytes Percent Auto 15.2 % (18.0-42.0); Mean Corpuscular HGB Conc 32.6 g/dL (32.0-36.0); Mean Platelet Volume 11.1 fl (9.2-11.8); Monocytes Absolute Auto 1.93 K/mm3 (0.10-0.90); Monocytes Percent Auto 9.7 % (2.0-11.0); Neutrophils Absolute Auto 14.7 K/mm3 (1.7-7.2); Neutrophils Percent Auto 73.7 % (50.0-70.0); Platelet Count Result 194 K/mm3 (150-420); Red Blood Count 4.93 M/mm3 (4.20-5.40); Red Cell Distribution Width 13.8 % (11.6-14.4)
[2023-06-07 15:40] LABS: Anion Gap 10 mmol/L (8-16); Blood Urea Nitrogen 20 mg/dL (7-18); Calcium 8.7 mg/dL (8.5-10.1); Carbon Dioxide 30 mmol/L (21-32); Chloride 100 mmol/L (98-108); Estimated Glomerular Filt Rate 48; Glucose 140 mg/dL (70-99); Osmolality Calculated 294 mOsm/kg (285-295); Potassium 3.9 mmol/L (3.5-5.1); Sodium 140 mmol/L (136-145)
[2023-06-07 15:45] LABS: Appearance Urine Clear (Clear); Bilirubin Urine Negative (Negative); Blood Urine Trace-Intact (Negative); Color Urine Light Yellow (Yellow); Glucose Urine UA Negative (Negative); Ketones Urine Negative (Negative); Leukocyte Esterase Ur Trace LEU/UL (Negative); Nitrate Urine Negative (Negative); Protein Urine Negative (Negative); Urobilinogen Urine 0.2 mg/dL (0.2-1.0)
[2023-06-07 15:49] LABS: Add Urine Microscopic? YES; RBC Urine 0-2 /hpf (0-2); Squamous Epithelial Cell Urine Few /hpf (Few); WBC Urine 0-3 /hpf (0-3)
[2023-06-07 15:50] LABS: Bacteria Urine Trace /hpf
[2023-06-07 16:26] LABS: Toxigenic C. Diff POSITIVE (NEGATIVE)
[2023-06-07 16:36] VITALS: BP 147/52; PULSE 74; RESP 20; TEMP 36.9; O2SAT 94
== END 2023-06-07 16:44 | disposition home or self-care (01) ==
PROVIDERS: Emergency Provider Internal Medicine Critical Care Medicine; PCP Internal Medicine
DX: A04.72 Enterocolitis due to Clostridium difficile, not specified as recurrent (principal); I10 Essential (primary) hypertension; I25.10 Atherosclerotic heart disease of native coronary artery without angina pectoris; I25.2 Old myocardial infarction; F17.210 Nicotine dependence, cigarettes, uncomplicated; Z79.1 Long term (current) use of non-steroidal anti-inflammatories (NSAID); Z79.899 Other long term (current) drug therapy
CPT/HCPCS: 36415; 80048; 81001; 85025; 87493; 99283

== ENCOUNTER 2023-06-19 09:44 | Outpatient (CLI) | payer MEDICARE, SELFPAY ==
[2023-06-19 10:42] LABS: Toxigenic C. Diff NEGATIVE (NEGATIVE)
== END 2023-06-19 09:45 | disposition home or self-care (01) ==
LOC: CHSLAB 09:48
PROVIDERS: PCP Internal Medicine; Visit Provider Internal Medicine
DX: A04.72 Enterocolitis due to Clostridium difficile, not specified as recurrent (principal)
CPT/HCPCS: 87493

== ENCOUNTER 2023-12-24 10:18 | Emergency (ER) | payer MEDICARE, SELFPAY ==
[2023-12-24 10:20] VITALS: BP 166/53; PULSE 63; RESP 20; TEMP 36.4; O2SAT 95
[2023-12-24 10:28] LABS: Glucose Point of Care 133 mg/dl (65-105)
--- NOTE | 2023-12-24 10:49 | ED.URI ---
HPI - URI/Sore Throat General Chief Complaint: Upper Respiratory Infection Stated Complaint: upper resp , cough Source: patient Mode of arrival: ambulatory Limitations: no limitations History of Present Illness HPI Narrative: Patient is a 73-year-old female with sinus pain and pressure for the past few days. Her face is feeling like high pressure. She points to the maxillary sinus area. Right side greater than left side. MD elicited complaint: nasal congestion and sinus pain Pertinent past history: sinusitis Onset (ago): day(s) (3) Consistency: constant Severity: moderate Pain scale (0-10): 2 Description of mucous: yellow and green Able to tolerate fluids by mouth: Yes Exacerbating factors: nothing Relieving factors: nothing Associated symptoms: denies other symptoms Treatments prior to arrival: none Related Data Home Medications Medication Instructions Recorded Confirmed indapamide 1.25 mg tablet 1.25 mg PO DAILY 05/30/23 06/07/23 losartan 100 mg tablet 100 mg PO DAILY 05/30/23 06/07/23 meloxicam 15 mg tablet 15 mg PO DAILY 05/30/23 06/07/23 metoprolol tartrate 25 mg tablet 25 mg PO BID 05/30/23 06/07/23 pantoprazole 40 mg tablet,delayed 40 mg PO BID 05/30/23 06/07/23 release pioglitazone 15 mg tablet 7.5 mg PO DAILY 05/30/23 06/07/23 sucralfate 1 gram tablet 1 g PO QID 05/30/23 06/07/23 Allergies Allergy/AdvReac Type Severity Reaction Status Date / Time piperacillin Allergy Unknown RASH, Verified 05/30/23 16:18 HIVES,ITCHING Sulfa (Sulfonamide Allergy Unknown RASH/HIVES Verified 05/30/23 16:18 Antibiotics) tazobactam Allergy Unknown RASH, Verified 05/30/23 16:18 HIVES,ITCHING Review of Systems Review of Systems: All systems reviewed & are unremarkable except as noted in HPI and below Constitutional: Constitutional: Reports no additional constitutional complaints Eyes: Eyes: Reports no additional eye complaints ENT: Reports system reviewed and no additional complaints, except as documented Cardiovascular: Cardiovascular: Reports no additional cardiovascular complaints Respiratory: Respiratory: Reports no additional respiratory complaints Gastrointestinal: Gastrointestinal: Reports no additional gastrointestinal complaints Genitourinary: Genitourinary: Reports no additional female genitourinary complaints Musculoskeletal: Musculoskeletal: Reports no additional musculoskeletal complaints Integumentary/Breasts: Skin/Breast: Reports system reviewed and no additional complaints, except as docu Neurologic: Reports system reviewed and no additional complaints, except as documented Psychiatric: Psychiatric: Reports no additional psychiatric complaints Endocrine: Endocrine: Reports no additional endocrine complaints Hematologic/Lymphatic: Hematologic/Lymphatic: Reports no additional hematologic/lymphatic complaints Allergic/Immunologic: Allergic/Immunologic: Reports no additional allergic/immunologic complaints PMFSH Past Medical History Medical History GERD (gastroesophageal reflux disease) Glucose intolerance Hypertension Non-STEMI (non-ST elevated myocardial infarction) Rheumatoid arthritis Surgical History Surgical History H/O hysterectomy for benign disease History of coronary artery stent placement S/P colon resection Family History Family History Sibling Diabetes mellitus Stented coronary artery Social History Social History Years smoked: 50 Smoking status: Current every day smoker Tobacco type: cigarettes Second hand tobacco smoke exposure: Yes Alcohol intake: never Substance use: never Substance use type: does not use Gender identity (if verbalized by the patient): Female Spiritual care concerns: No Exam Const: General: h
[2023-12-24 11:05] VITALS: BP 133/58; PULSE 60; RESP 16; O2SAT 95
== END 2023-12-24 11:05 | disposition home or self-care (01) ==
LOC: CHSED 11:14
PROVIDERS: Emergency Provider Emergency Medicine; PCP Internal Medicine
DX: J32.9 Chronic sinusitis, unspecified (principal); I10 Essential (primary) hypertension; I25.2 Old myocardial infarction; M06.9 Rheumatoid arthritis, unspecified; F17.210 Nicotine dependence, cigarettes, uncomplicated; Z79.899 Other long term (current) drug therapy
CPT/HCPCS: 82948; 99283

== ENCOUNTER 2024-02-27 14:15 | Outpatient (CLI) | payer MEDICARE, SELFPAY ==
--- NOTE | ~2024-02-27 | CT_ITS ---
CT Scan of the Chest without Contrast: Clinical Indication: Lung cancer screening, nicotine dependence Technique: Contiguous sections were acquired throughout the chest without intravenous contrast. Dose reduction technique was used on this scan by utilizing automated exposure control and iterative recon struction technique. The dose-length product (DLP) was 377.62 mGy-cm. Findings: There is no evidence of any significant mediastinal, hilar or axillary lymphadenopathy. Coronary alexa ry calcifications are present. There is no evidence of pleural or pericardial effusion. Stable small right fissural nodules anteriorly. Calcified right middle lobe granuloma noted. Minimal cystic changes are present emphysema noted peripherally in the upper lobes. Images through the upper abdomen reveal 13 mm low-density right adrenal nodule, compatible with adeno ma. Impression: Lung RADS 2: Benign appearance. 12 month follow-up screening CT advised. Reviewed, dictated and finalized at [facility]. Impression: Lung RADS 2: Benign appearance. 12 month follow-up screening CT advised.
--- NOTE | ~2024-02-27 | US_ITS ---
EXAMINATION: US carotid duplex BI DATE: 02/27/2024 15:26 INDICATION: Carotid bruit TECHNIQUE: Grayscale, color Doppler, and pulsed Doppler images of the cervical carotid arteries were obtained. The degree of vessel stenosis is placed in one of the following categories: normal, <50%, 5 0-69%, >=70% but less than near-occlusion, near-occlusion, or total occlusion. Note that percent sten osis relative to normal distal artery lumen diameter is indirectly measured from velocity measurement s as described by Daniel, et al. Radiology 2003; 229:340-346. COMPARISON: None. FINDINGS: RIGHT: The right common carotid artery (CCA) peak systolic velocity (PSV) is 83 cm/s. The right internal car otid artery (ICA) PSV is 69 cm/s. The right ICA end-diastolic velocity (EDV) is 15 cm/s. The right IC A/CCA PSV ratio is 0.8. Grayscale and color Doppler images yield an estimate of <50% diameter reducti on from plaque in the ICA. The external carotid artery (ECA) PSV is 106 cm/s. There is antegrade flow in the right vertebral artery. LEFT: The left CCA PSV is 94 cm/s. The left ICA PSV is 97 cm/s. The left ICA EDV is 22 cm/s. The left ICA/C CA PSV ratio is 1.0. Grayscale and color Doppler images yield an estimate of <50% diameter reduction from plaque in the ICA. The ECA PSV is 110 cm/s. There is antegrade flow in the left vertebral artery . IMPRESSION: 1. <50% stenosis in the right internal carotid artery. 2. <50% stenosis in the left internal carotid artery. Reviewed, dictated and finalized at location [facility].
== END 2024-02-27 14:16 | disposition home or self-care (01) ==
PROVIDERS: PCP Internal Medicine; Visit Provider Internal Medicine
DX: Z12.2 Encounter for screening for malignant neoplasm of respiratory organs (principal); Z87.891 Personal history of nicotine dependence; M81.0 Age-related osteoporosis without current pathological fracture; R09.89 Other specified symptoms and signs involving the circulatory and respiratory systems; M25.571 Pain in right ankle and joints of right foot; I73.9 Peripheral vascular disease, unspecified
CPT/HCPCS: 71271; 73610; 93880

== ENCOUNTER 2024-04-14 12:15 | Emergency (ER) | payer MEDICARE, SELFPAY ==
[2024-04-14] VITALS (24 sets, daily range): BP systolic 136–199; BP diastolic 55–104; PULSE 58–79; RESP 14–25; TEMP 36.6–36.7; O2SAT 91–96
--- NOTE | ~2024-04-14 | XR_ITS ---
Portable chest x-ray Comparison: 03/30/2020 Clinical History: Chest pain Findings: Lungs are clear, without focal consolidation or pleural effusion. Cardiomediastinal silho uette is stable. Bones and soft tissues are unremarkable. Impression: Clear lungs. Reviewed, dictated and finalized at location . LAYER Impression: Clear lungs.
--- NOTE | 2024-04-14 12:23 | ECG_ITS ---
Test Date: 2024-04-14 12:27:07 Measurements Intervals [place] Rate: 61 P: 10 WI: 157 QRS: 39 QRSD: 86 T: 28 QT: 398 QTc: 404 Interpretive Statements SINUS RHYTHM No previous ECG available for comparison Electronically Signed On 04-15-2024 12:00:39 TEST DECK SUPERVISOR by Travis Sharpe M.D.
--- NOTE | 2024-04-14 12:23 | ED.CHESTPAIN ---
HPI - Chest Pain General Chief Complaint: Chest Pain Stated Complaint: chest pain Time Seen by Provider: 04/14/24 12:22 Source: patient Mode of arrival: ambulatory Limitations: no limitations History of Present Illness HPI narrative: patient drove herself to the emergency room complaining of retrosternal tightness and heaviness started while cooking, resolved after 15 minutes After taking Tums. although patient have no chest pain at this time but she report that her feeling exactly the same when she had coronary stents 4 years ago. Patient denies fever, chills, nausea, vomiting, shortness of breath, radiation of pain. History of diabetes hypertension hyperlipidemia coronary stents x3 2019. Patient is obese, active less tobacco smoker. Currently patient denying any chest pain. Related Data Home Medications ?Medication ?Instructions ?Recorded ?Confirmed ?Last Taken ?Type indapamide 1.25 mg tablet 1.25 mg PO DAILY 05/30/23 04/14/24 Unknown History losartan 100 mg tablet 100 mg PO DAILY 05/30/23 04/14/24 Unknown History meloxicam 15 mg tablet 15 mg PO DAILY 05/30/23 04/14/24 Unknown History metoprolol tartrate 25 mg tablet 25 mg PO BID 05/30/23 04/14/24 Unknown History pantoprazole 40 mg tablet,delayed 40 mg PO BID 05/30/23 04/14/24 Unknown History release pioglitazone 15 mg tablet 7.5 mg PO DAILY 05/30/23 04/14/24 Unknown History sucralfate 1 gram tablet 1 g PO QID 05/30/23 04/14/24 Unknown History Allergies Allergy/AdvReac Type Severity Reaction Status Date / Time piperacillin Allergy Unknown RASH, Verified 04/14/24 12:22 HIVES,ITCHING Sulfa (Sulfonamide Allergy Unknown RASH/HIVES Verified 04/14/24 12:22 Antibiotics) tazobactam Allergy Unknown RASH, Verified 04/14/24 12:22 HIVES,ITCHING Review of Systems Review of Systems: All systems reviewed & are unremarkable except as noted in HPI and below PMFSH Past Medical History Medical History Non-STEMI (non-ST elevated myocardial infarction) Glucose intolerance GERD (gastroesophageal reflux disease) Rheumatoid arthritis Hypertension Surgical History Surgical History History of coronary artery stent placement H/O hysterectomy for benign disease S/P colon resection Family History Family History Sibling Diabetes mellitus Stented coronary artery Social History Social History Years smoked: 50 Smoking status: Current every day smoker Tobacco type: cigarettes Second hand tobacco smoke exposure: Yes Alcohol intake: never Substance use: never Substance use type: does not use Gender identity (if verbalized by the patient): Female Spiritual care concerns: No Exam Narrative: General appearance: Well-developed, well-nourished Skin: Normal color Head: Normocephalic, nontraumatic Eyes: Clear conjunctiva ENT: Oropharynx normal, ears normal, nose normal Neck: Supple, nontender Chest and respiratory: Airway patent, no respiratory distress, no accessory muscle use Heart: Regular rate/rhythm Abdomen: Soft, nontender, no organomegaly, quiet bowel sounds Vascular: Normal peripheral pulses, normal capillary refill. Musculoskeletal: Normal range of motion, nontender back Neurologic: Alert and oriented ?3, WATERWORKS PUMP STATION OPERATOR is normal as tested, no gross motor deficit Course Vital Signs Vital signs: Vital Signs Temperature 36.6 C 04/14/24 12:17 Pulse Rate 66 04/14/24 12:17 Respiratory Rate 18 04/14/24 12:17 Blood Pressure 154/104 H 04/14/24 12:17 Pulse Oximetry 91 04/14/24 12:17 Oxygen Delivery Room Air 04/14/24 12:17 Temperature 36.7 C 04/14/24 14:40 Pulse Rate 66 04/14/24 14:31 Respiratory Rate 14 04/14/24 14:31 Blood Pressure 152/80 H 04/14/24 14:31 Pulse Oximetry 93 04/14/24 14:31 Oxygen Delivery Room Air 04/14/24 12:17 MDM - Chest Pain MDM Narrative Medical decision making narrative: Patient presents with retrosternal chest pain lasted for 15 minutes Vital signs showing blood pressure 154/104 Otherwise insignificant Physical examination showing asymptomatic patients, obese, anxious Differential diagnosis include anxiety like symptoms, GERD, coronary artery disease Blood workup today includes CBC, CMP, troponin, PT PTT, lipase showed creatinine of 1.1, otherwise within normal limit Chest x-ray showed no acute abnormalities EKG on arrival showed rhythm acute abnormalities. Patient heart score is is 6 Patient declined hospitalization and would like to sign AMA, she believed that she is very stressed and this is what causing her symptoms. I declare that I have personally explained to the patient the risks and consequences involved in leaving this facility at this time. the benefits of continued treatment and/or hospitalization. And the alternatives. If any. to continued treatment and/or hospitalization. if applicable.I have not identified any psychosis, drugs, mental illness, or medical illness that alters decision-making capacity (reasoning abilities ). Differential Diagnosis Differential diagnosis: Likely stable angina, unstable angina pectoris, atypical chest pain, costochondritis and chest pain Medical Records Data Attestation: I reviewed the patient's medical records. Lab Data Attestation: I reviewed the patient's lab results. 04/14/24 13:03 04/14/24 13:03 Labs: Lab Results 04/14/24 Range/Units 13:03 WBC 9.4 (4.8-10.8) K/mm3 RBC 4.39 (4.20-5.40) M/mm3 Hgb 13.0 (11.7-13.8) g/dL Hct 39.4 (35.0-42.0) % MCV 89.7 (78.0-102.0) fL MCH 29.6 (27.0-31.0) pg MCHC 33.0 (32-36) g/dL RDW 13.5 (11.6-14.4) % Plt Count 224 (150-420) K/mm3 MPV 11.7 (9.2-11.8) fl Immature Gran % (Auto) 0.4 H (0.0-0.0) % Neut % (Auto) 51.5 (50.0-70.0) % Lymph % (Auto) 34.5 (18.0-42.0) % Kane % (Auto) 8.5 (2.0-11.0) % Eos % (Auto) 4.4 (1.0-6.0) % Baso % (Auto) 0.7 (0.0-1.0) % Lymph # (Auto) 3.25 (1.10-4.50) K/mm3 Kane # (Auto) 0.80 (0.10-0.90) K/mm3 Eos # (Auto) 0.41 (0.02-0.50) K/mm3 Baso # (Auto) 0.07 (0.00-0.10) K/mm3 Abs Immat Gran (auto) 0.04 H (0.00-0.00) K/mm3 Absolute Neuts (auto) 4.85 (1.70-7.20) K/mm3 Absolute Nucleated RBC 0.00 (0.00-0.00) K/mm3 Nucleated RBC % 0.0 (0-0.0) % PT 11.0 (9.50-12.1) Seconds INR 1.0 APTT 25.5 (23.9-30.70) Sec Sodium 142 (136-145) mmol/L Potassium 4.1 (3.5-5.1) mmol/L Chloride 104 (98-108) mmol/L Carbon Dioxide 31 (21-32) mmol/L Anion Gap 7 (4-12) mmol/L BUN 24 H (7-18) mg/dL Creatinine 1.13 H (0.55-1.02) mg/dL Estim Creat Clear Calc 44 ml/min Estimated GFR 47 L (59 - ) Glucose 107 H (70-99) mg/dL Calculated Osmolality 298 H (285-295) mOsm/kg Calcium 9.3 (8.5-10.1) mg/dL Total Bilirubin 0.4 (0.00-1.00) mg/dL AST 13 L (15-37) U/L ALT 17 (14-59) U/L Alkaline Phosphatase 93 (46-116) U/L Troponin I 5.1 (0.00-60.4) ng/L NT-Pro-B Natriuret Pep 849 H (0-450) pg/mL Total Protein 6.4 (6.4-8.2) g/dL Albumin 3.2 L (3.4-5.0) g/dL ECG Data EKG #1: Attestation: I personally reviewed and interpreted this ECG as follows: ECG completion date: 04/14/24 Interpretation: Normal sinus rhythm at 61 beats per minute, normal EKG, Critical Care Time Critical Care Time Critical Care Time: No Discharge Plan Discharge Clinical Impression: Chest pain, Anxiety Patient Disposition: Left Against Medical Advice Condition: Improved Instructions: Chest Pain (ED), Anxiety (ED) Patient Language: Arabic Prescriptions: New clonazepam 0.25 mg tablet,disintegrating 0.25 mg PO BID Qty: 10 0RF No Action pioglitazone 15 mg tablet 7.5 mg PO DAILY meloxicam 15 mg tablet 15 mg PO DAILY sucralfate 1 gram tablet 1 g PO QID pantoprazole 40 mg tablet,delayed release (DR/EC) 40 mg PO BID indapamide 1.25 mg tablet 1.25 mg PO DAILY losartan 100 mg tablet 100 mg PO DAILY metoprolol tartrate 25 mg tablet 25 mg PO BID Follow-up/Referrals: UNKNOWN,DOCTOR [Non-Staff] - Quality HEART score for chest pain patients History: moderately suspicious ECG: non specific repolarization disturbance/LBTB/PM Age: > or = to 65 years Risk factors: > or = to 3 risk factors of atherosclerotic disease Troponin: < or = to 1x normal limit Heart score: 6
[2024-04-14] MEDS: ASPIRIN 81 MG CHEWABLE TABLET 324 MG PO (12:54)
[2024-04-14 13:17] LABS: Basophils Absolute Auto 0.07 K/mm3 (0.00-0.10); Basophils Percent Auto 0.7 % (0.0-1.0); Eosinophils Absolute Auto 0.41 K/mm3 (0.02-0.50); Eosinophils Percent Auto 4.4 % (1.0-6.0); Hematocrit 39.4 % (35.0-42.0); Immature Granulocyte Absolute 0.04 K/mm3 (0.00-0.00); Immature Granulocyte Percent A 0.4 % (0.0-0.0); Lymphocytes Absolute Auto 3.25 K/mm3 (1.10-4.50); Lymphocytes Percent Auto 34.5 % (18.0-42.0); Mean Corpuscular Hemoglobin 29.6 pg (27.0-31.0); Mean Corpuscular Volume 89.7 fL (78.0-102.0); Mean Platelet Volume 11.7 fl (9.2-11.8); Monocytes Percent Auto 8.5 % (2.0-11.0); Neutrophils Absolute Auto 4.85 K/mm3 (1.70-7.20); Neutrophils Percent Auto 51.5 % (50.0-70.0); Platelet Count Result 224 K/mm3 (150-420); Red Blood Count 4.39 M/mm3 (4.20-5.40); Red Cell Distribution Width 13.5 % (11.6-14.4); White Blood Count 9.4 K/mm3 (4.8-10.8)
[2024-04-14 13:29] LABS: Partial Thromboplastin Time 25.5 Sec (23.9-30.70)
[2024-04-14 13:36] LABS: Alanine Aminotransferase 17 U/L (14-59); Albumin Level 3.2 g/dL (3.4-5.0); Alkaline Phosphatase 93 U/L (46-116); Anion Gap 7 mmol/L (4-12); Aspartate Amino Transferase 13 U/L (15-37); Bilirubin,Total 0.4 mg/dL (0.00-1.00); Blood Urea Nitrogen 24 mg/dL (7-18); Calcium 9.3 mg/dL (8.5-10.1); Carbon Dioxide 31 mmol/L (21-32); Chloride 104 mmol/L (98-108); Estimated CRCL calculation 44 ml/min; Estimated Glomerular Filt Rate 47; Glucose 107 mg/dL (70-99); NT Pro B Type Natriuretic Pept 849 pg/mL (0-450); Osmolality Calculated 298 mOsm/kg (285-295); Potassium 4.1 mmol/L (3.5-5.1); Sodium 142 mmol/L (136-145); Total Protein 6.4 g/dL (6.4-8.2); Troponin I 5.1 ng/L (0.00-60.4)
--- OUTSIDE RECORDS SUMMARY | 2024-04-19 04:39 | XMS_ITS | Encounter Summary ---
Author Organization [facility] Address [address] [place] [address]. [place] [address] [place] [address] Care Team Providers Care Glazing Machine Operator Name Role Phone Sukhjinder Pat MD Primary Care Provider [phone] Eladio Carlson MD Unavailable Unavailabl e Reason for Visit * Reason Comments Follow Up Encounter Details Date Type Department Care Team (Late st Contact Info) Description 07/05/2023 12:00 PM LIQUID CHLORINE OPERATOR Office Visit [facility] [place] [phone] Eladio Carlson MD Follow Up Social History Tobacco Use Types Packs/Day Years Used Date Smoking Tobacco: Some Days Cigarettes Last attempted to quit: 11/2019 Smokeless Tobacco: Never Tobacco Cessation:Ready to Q uit: Not Asked; Counseling Given: Not Answered Comments Unknown Sex and Gender Information Value Date Recorded Sex Assigned at Not on file Legal Sex Female 10:13 AM CDT Gender Identity Not on file Sexual Orientation Not on file documented as of this encounter Last Filed Vital Signs Vital Sign Reading Time Taken Comments Blood Pressure 126/43 07/05/2023 11:38 AM LIQUID CHLORINE OPERATOR Pulse 70 07/05/2023 11:38 AM LIQUID CHLORINE OPERATOR Temperature - - Respiratory Rate 12 07/05/2023 11:38 AM LIQUID CHLORINE OPERATOR Oxygen Saturation 95% 07/05/2023 11:38 AM LIQUID CHLORINE OPERATOR Inhaled Oxygen Concentration - - Weight 99.3 kg (219 lb) 07/05/2023 11:38 AM LIQUID CHLORINE OPERATOR Height 157.5 cm (5' 2 ) 07/05/2023 11:38 AM LIQUID CHLORINE OPERATOR Body Mass Index 40.06 07/05/2023 11:38 AM LIQUID CHLORINE OPERATOR documented in this encounter Patient Instructions * Patient Instructions* Filomena Nichole RN - 07/05/2023 12:00 PM LIQUID CHLORINE OPERATOR No changes were made to your medications today by Dr. Carlson Please check this list with your actual home medications for accuracy Due to Dr. Carlson's upcoming nursing home, you have been scheduled with DR. LA WONG for your next follow up, if you have a different preference please call [phone] to schedule with the physician of your choice. ID CHLORINE OPERATOR ID CHLORINE OPERATOR documented in this encounter Progress Notes * Eladio Carlson MD - 07/05/2023 12:00 PM CST Reason for Visit: Follow Up History of Present Illness: Recommendations and Plan: Medications: Current Outpatient Medications: ??? azelastine (ASTELIN) 0.1 % nasal spray, , Disp: , Rfl: ??? hydroxychloroquine (PLAQUENIL) 200 MG tablet, , Disp: , Rfl: ??? indapamide (LOZOL) 1.25 MG tablet, , Disp: , Rfl: ??? ipratropium (ATROVENT) 0.06 % nasal spray, , Disp: , Rfl: ??? losartan-hydroCHLOROthiazide 100-12.5 MG Tab, Take 1 tablet by mouth daily., Disp: , Rfl: ??? metoprolol tartrate 25 MG tablet, Take 1 tablet (25 mg total) by mouth 2 (two) times daily., Disp: , Rfl: ??? Multiple Vitamin (MULTIVITAMIN) capsule, Take 1 capsule by mouth daily., Disp: , Rfl: ??? omega-3 fatty acid 500 MG capsule, Take 1 capsule (500 mg total) by mouth daily., Disp: , Rfl: ??? pantoprazole EC 40 MG tablet, Take 1 tablet (40 mg total) by mouth daily., Disp: , Rfl: ??? pioglitazone 15 MG tablet, Take 0.5 tablets (7.5 mg total) by mouth as needed., Disp: , Rfl: ??? rosuvastatin (CRESTOR) 5 MG tablet, Take 1 tablet (5 mg total) by mouth daily., Disp: , Rfl: ??? sucralfate 1 G tablet, Take 1 tablet (1 g total) by mouth 4 (four) times daily before meals andnightly. As needed, Disp: , Rfl: ??? triamcinolone (KENALOG) 0.1 % cream, , Disp: , Rfl: ??? Blood Glucose Monitoring Suppl (TRUE METRIX METER) w/Device Kit, , Disp: , Rfl: ??? TRUE METRIX BLOOD GLUCOSE TEST test strip, , Disp: , Rfl: ??? TRUEplus Lancets 28G Misc, , Disp: , Rfl: Allergies Allergen Reactions ??? Sulfa Antibiotics Rash ??? Piperacillin Sod-Tazobactam So Rash Past Medical History: Diagnosis Date ??? Diabetes ([facility]) ??? GERD (gastroesophageal reflux disease) ??? HTN (hypertension) ??? Migraines ??? 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) Past Surgical History: Procedure Laterality Date ??? ABDOMINAL SURGERY Ruptured colon with colostomy ??? HYSTERECTOMY ??? XA CORONARY INTERVENTION 11/2019 RCA Social History Tobacco Use ??? Smoking status: Some Days Current packs/day: 0.00 Types: Cigarettes Last attempt to quit: 11/2019 Years since quittin.8 ??? Smokeless tobacco: Never Family History Problem Relation Name Age of Onset ??? Heart Attack Brother ??? Stent Brother ??? Stroke Paternal Grandmother ??? Stroke Paternal Grandfather Family Status Relation Name Status ??? Brother (Not Specified) ??? PGM (Not Specified) ??? PGF (Not Specified) No partnership data on file Review of Systems Constitutional: Negative for recent unintentional weight gain, recent unintentional weight loss andnew or significant fatigue. HENT: Negative for new or significant hearing loss. Eyes: Negative for blurred vision and double vision. Respiratory: Negative for cough, new or significant shortness of breath and snoring. Cardiovascular: See HPI. Lightheaded with standing occasionally Gastrointestinal: Negative for blood in stool and melena. Genitourinary: Negative for dysuria. Musculoskeletal: Positive for joint stiffness/pain. Negative for myalgias. Skin: Negative for rash. Neurological: Negative for tingling/numbness and focal weakness. Endo/Heme/Allergies: Negative for new or significant bruising/bleeding and polydipsia. Psychiatric/Behavioral: Negative for depression and new or significant memory loss. Vitals: 07/05/23 1138 BP: 126/43 Pulse: 70 Weight: 99.3 kg (219 lb) Height: 1.575 m (5' 2 ) Body mass index is 40.06 kg/m??. Cardiac Exam Rate/Rhythm: Normal rate and regular rhythm. PMI: PMI is not displaced. Pulses: Normal pulses. Femoral pulses are 2+ on the right side and 2+ on the left side. Heart Sounds: Normal heart sounds. Normal S1 sounds. Normal S2 sounds. No gallop present. No S3. NoS4. Murmurs: Physical Exam Constitutional: No distress. Healthy Appearance. Overweight. HENT: Oropharynx clear. Eyes: Pupils equal, round, and reactive to light. Conjunctivae normal. Neck: Neck supple. No JVD. Abdomen: Abdomen soft. Bowel sounds normal. No tenderness. No mass. No hepatomegaly. No splenomegaly. Abdominal aorta not palpably enlarged. No abdominal bruit present. Pulmonary: Effort normal. Breath sounds normal. Skin: No rash. No cyanosis. No clubbing. No xanthoma. Musculoskeletal: No kyphosis. Normal ROM. Neurological: Alert. Oriented x 3. Appropriate mood and affect. Normal motor skills. Normal gait. Comments: The documentation for the above exam was created using a template entered by ancillary staff however the physical exam was completed entirely by the provider responsible for this visit. Thephysical exam documentation was reviewed and modified by the provider to reflect his/her findings. Diagnoses/Impression: 1. Coronary artery disease involving [place] coronary artery of [place] heart without angina pectoris 2. NSTEMI (non-ST elevated myocardial infarction) ([facility]) 3. S/P coronary artery stent placement 4. Primary hypertension 5. Other hyperlipidemia 6. 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) Referring Provider: No ref. provider found PCP: SUKHJINDER PAT MD * Eladio Carlson MD - 07/05/2023 12:00 AM CST Patient Name: MILLA WOLFE Date of : 1950 Account: [id number] Facility: [facility] Location: [facility] Date of Service: 07/05/2023 Visit HISTORY OF PRESENT ILLNESS: Mrs. Wolfe is seen in the cardiology clinic today for a scheduled followup visit. She is a pleasant 73-year-old woman with a history of coronary artery disease status post NSTEMI requiring stenting of the right coronary artery in 2019, hypertension, and hyperlipidemia.She also has a history of rheumatoid arthritis and is followed by Dr. Funez. Mrs. Wolfe reports that she is doing quite well from a cardiac standpoint. She denies any anginalchest pain or shortness of breath. She has had no overt symptoms of congestive heart failure such as paroxysmal nocturnal dyspnea, orthopnea, or pedal edema. She denies any palpitations or syncope, but has occasional lightheadedness. She denies any claudication or recent symptoms to suggest a TIA or CVA. She is tolerating her cardiac medications well. Mrs. Wolfe reports that her rheumatoid arthritis has been causing her increased lower back pain. She has had some difficulties using nonsteroidal anti-inflammatory drugs due to stomach problems. She is now back on her Plaquenil. Her Plavix and Meloxicam have been discontinued. A review of the records show that a cardiac catheterization was performed in November 2019. This was performed at [facility] and demonstrated a long area of high-grade stenosis in the mid portion of the large dominant right coronary artery (95-99%). The large right posterolateral branch also had a complex area of 90% stenosis proximally. A moderate stenosis was also present in the right posterior descending artery, which did not appear to be flow- restricting. Left systolic dysfunction. Herleft ventricular systolic dysfunction was noted with a region of hypokinesia in the inferobasal segment with overall normal left ventricular ejection fraction. A successful somewhat complex PCI involving angioplasty and stenting of the right posterolateral branch as well as the large trunk of this large dominant right coronary artery using drug-eluting stents was performed. The procedure apparently went well. RECOMMENDATIONS/PLAN: Mrs. Wolfe's cardiac status appears clinically stable at the present time without ongoing anginal chest pain, overt symptoms of congestive heart failure, or clinical evidence of hemodynamically significant arrhythmias. Continued medical therapy and aggressive cardiac risk factor modification seem most appropriate at the present time. I have recommended the following to Mrs. Wolfe: 1. Continue present medical regimen without alteration. She will continue her Aspirin antiplatelet therapy, Rosuvastatin, and Metoprolol long-term. 2. Lipid management per Dr. Pat's expertise. A reasonable goal would be to maintain an LDL cholesterol fraction of less than 70 associated with a normal total cholesterol to HDL cholesterol ratio and serum triglyceride level. 3. Annual followup in the cardiology clinic. Mrs. Wolfe will be seen during her next clinic visitby Dr. La Wong. I have encouraged her to contact my office in the meantime should she have any questions or problems. Signature/Date: ELADIO CARLSON #[id number] /SUT documented in this encounter Plan of Treatment Upcoming Encounters Date Type Department Care Team (Late st Contact Info) Description 07/08/2024 2:45 PM CDT Office Visit [facility] [address] [place] [phone] La Wong MD [address] [place] [address] documented as of this encounter Visit Diagnoses Diagnosis Coronary artery disease involving [place] coronary artery of [place] heart without angina pectoris- Primary NSTEMI (non-ST elevated myocardial infarction) (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) Other specified disorders of arteries and arterioles documented in this encounter Care Teams Glazing Machine Operator Relationship Specialty Start Date End Date Sukhjinder Pat MD [address] [place] [address] PCP - General INTERNAL MEDICINE 02/26/20 Eladio Carlson MD [address] [place] [address] [employer] Ref[employer] Machine Operator CARDIOVASCULAR DISEASE 02/26/20 11/04/23 documented as of this encounter
--- OUTSIDE RECORDS SUMMARY | 2024-04-19 04:39 | XMS_ITS | Encounter Summary ---
Author Organization [facility] Address [address] [place] [address]. [place] [address] [place] [address] Care Team Providers Care Lacing String Cutter Name Role Phone Keesha Goss MD Primary Care Provider [phone] Ace Carlson MD Unavailable Unavailabl e Encounter Details Date Type Department Care Team (Latest Contact Info) Description 06/29/2022 Travel Social History Tobacco Use Types Packs/Day Years Used Date Smoking Tobacco: Former Cigarettes Q uit: 11/2019 Smokeless Tobacco: Never Comments Unknown Sex and Gender Information Value Date Recorded Sex Assigned at Not on file Legal Sex Female 10:13 AM CDT Gender Identity Not on file Sexual Orientation Not on file COVID-19 Exposure Response Date Recorded In the last 10 days, have yo u been in contact with someone who was confirmed or suspected to have Coronavirus/COVID-19? No / Unsure 06/29/2022 11:32 AM PROFESSOR OF PSYCHOLOGY documented as of this encounter Plan of Treatment Upcoming Encounters Date Type Department Care Team (Late st Contact Info) Description 07/08/2024 2:45 PM CDT Office Visit [facility] [place] [phone] La Metz MD [address] [place] [address] documented as of this encounter Visit Diagnoses Not on filedocumented in this encounter Care Teams Lacing String Cutter Relationship Specialty Start Date End Date Keesha Goss MD [address] [place] [phone] PCP - General INTERNAL MEDICINE 02/26/20 Ace Carlson MD [address] [place] [address] [employer] Veneer Gluer CARDIOVASCULAR DISEASE 02/26/20 11/04/23 documented as of this encounter
--- OUTSIDE RECORDS SUMMARY | 2024-04-19 04:39 | XMS_ITS | Encounter Summary ---
Author Organization [facility] Address [address] [place] [address]. [place] [address] [place] [address] Care Team Providers Care Erecting Engineer Name Role Phone Keesha Goss MD Primary Care Provider [phone] Ace Carlson MD Unavailable Unavailabl e Encounter Details Date Type Department Care Team (Latest Contact Info) Description 07/05/2023 Travel Social History Tobacco Use Types Packs/Day Years Used Date Smoking Tobacco: Former Cigarettes Q uit: 11/2019 Smokeless Tobacco: Never Comments Unknown Sex and Gender Information Value Date Recorded Sex Assigned at Not on file Legal Sex Female 10:13 AM CDT Gender Identity Not on file Sexual Orientation Not on file documented as of this encounter Plan of Treatment Upcoming Encounters Date Type Department Care Team (Late st Contact Info) Description 07/08/2024 2:45 PM CDT Office Visit [facility] [place] [phone] La Metz MD [address] [place] [address] documented as of this encounter Visit Diagnoses Not on filedocumented in this encounter Care Teams Erecting Engineer Relationship Specialty Start Date End Date Keesha Goss MD [address] [place] [phone] PCP - General INTERNAL MEDICINE 02/26/20 Ace Carlson MD [address] [place] [address] [facility] CARDIOVASCULAR DISEASE 02/26/20 11/04/23 documented as of this encounter
--- OUTSIDE RECORDS SUMMARY | 2024-04-19 04:39 | XMS_ITS | Encounter Summary ---
Author Organization [facility] Address [address] [place] [address]. [place] [address] [place] [address] Care Team Providers Care Advertising Material Distributor Name Role Phone Keesha Goss MD Primary Care Provider [phone] Ace Carlson MD Unavailable Unavailabl e Encounter Details Date Type Department Care Team (Latest Contact Info) Description 06/23/2021 Travel Social History Tobacco Use Types Packs/Day [...] suspected to have Coronavirus/COVID-19? No / Unsure 06/23/2021 7:27 AM INTERNET MARKETER documented as of this encounter Plan of Treatment Upcoming Encounters Date Type Department Care Team (Late st Contact Info) Description 07/08/2024 2:45 PM CDT Office Visit [facility] [place] [phone] La Metz MD [address] [place] [address] documented as of this encounter Visit Diagnoses Not on filedocumented in this encounter Care Teams Advertising Material Distributor Relationship Specialty Start Date End Date Keesha Goss MD [address] [place] [phone] PCP - General INTERNAL MEDICINE 02/26/20 Ace Carlson MD [address] [place] [address] [place] Manager Billing CARDIOVASCULAR DISEASE 02/26/20 11/04/23 documented as of this encounter
--- OUTSIDE RECORDS SUMMARY | 2024-04-19 04:39 | XMS_ITS | Encounter Summary ---
Author Organization [facility] Address [address] [place] [address]. [place] [address] [place] [address] Care Team Providers Care Sql Ssrs Developer Name Role Phone Sukhjinder Pat MD Primary Care Provider [phone] Ace Carlson MD Unavailable Unavailabl e Reason for Visit * Reason Comments Follow Up Encounter Details Date Type Department Care Team (Late st Contact Info) Description 06/29/2022 12:00 PM BOW MAKER Office Visit [facility] [place] [phone] Ace Carlson MD Follow Up Social History Tobacco [...] Coronavirus/COVID-19? No / Unsure 06/29/2022 11:32 AM BOW MAKER documented as of this encounter Last Filed Vital Signs Vital Sign Reading Time Taken Comments Blood Pressure 138/58 06/29/2022 12:00 PM BOW MAKER Pulse 59 06/29/2022 12:00 PM BOW MAKER Temperature - - Respiratory Rate 18 06/29/2022 12:00 PM BOW MAKER Oxygen Saturation 98% 06/29/2022 12:00 PM BOW MAKER Inhaled Oxygen Concentration - - Weight 95.7 kg (211 lb) 06/29/2022 12:00 PM BOW MAKER Height 160 cm (5' 3 ) 06/29/2022 12:00 PM BOW MAKER Body Mass Index 37.38 06/29/2022 12:00 PM BOW MAKER documented in this encounter Patient Instructions * Attachments The following attachments cannot be sent through Care Everywhere. * Weight Loss Tips ([place]) documented in this encounter Progress Notes * Ace Carlson MD - 06/29/2022 12:00 PM CST Reason for Visit: Follow Up History of Present Illness: Recommendations and Plan: Medications: Current Outpatient Medications: ??? clopidogrel (PLAVIX) 75 MG tablet, TAKE 1 TABLET EVERY DAY, Disp: 90 tablet, Rfl: 2 ??? losartan-hydroCHLOROthiazide 100-12.5 MG Tab, Take 1 tablet by mouth daily., Disp: , Rfl: ??? methotrexate 2.5 MG tablet, Take 1 tablet by mouth. 9 times per week, Disp: , Rfl: ??? metoprolol tartrate 25 MG tablet, Take 25 mg by mouth 2 (two) times daily., Disp: , Rfl: ??? Multiple Vitamin (MULTIVITAMIN) capsule, Take 1 capsule by mouth daily., Disp: , Rfl: ??? pantoprazole EC 40 MG tablet, Take 40 mg by mouth daily., Disp: , Rfl: ??? pioglitazone 15 MG tablet, Take 7.5 mg by mouth as needed., Disp: , Rfl: ??? rosuvastatin (CRESTOR) 5 MG tablet, Take 3 tablets by mouth daily., Disp: , Rfl: ??? sucralfate 1 G tablet, Take 1 g by mouth 4 (four) times daily before meals and nightly. As needed, Disp: , Rfl: ??? Blood Glucose Monitoring Suppl (TRUE METRIX METER) w/Device Kit, , Disp: , Rfl: ??? cyclobenzaprine (FLEXERIL) 10 MG tablet, , Disp: , Rfl: ??? hydroxychloroquine (PLAQUENIL) 200 MG tablet, , Disp: , Rfl: ??? omega-3 fatty acid 500 MG capsule, Take 500 mg by mouth daily., Disp: , Rfl: ??? TRUE METRIX BLOOD GLUCOSE TEST test strip, , Disp: , Rfl: ??? TRUEplus Lancets 28G Misc, , Disp: , Rfl: Allergies Allergen Reactions ??? Sulfa Antibiotics Rash ??? Piperacillin Sod-Tazobactam So Rash Past Medical History: Diagnosis Date ??? Diabetes (CMS/HCC) ??? GERD (gastroesophageal reflux disease) ??? HTN (hypertension) ??? Migraines ??? Rheumatoid arteritis (CMS/HCC) Past Surgical History: Procedure Laterality Date ??? ABDOMINAL SURGERY Ruptured colon with colostomy ??? HYSTERECTOMY ??? XA CORONARY INTERVENTION 11/2019 RCA Social History Tobacco Use ??? Smoking status: Former Types: Cigarettes Quit date: 11/2019 Years since quittin.8 ??? Smokeless tobacco: Never Family History Problem Relation Name Age of Onset ??? Heart Attack Brother ??? Stent Brother ??? Stroke Paternal Grandmother ??? Stroke Paternal Grandfather Family Status Relation Name Status ??? Brother (Not Specified) ??? PGM (Not Specified) ??? PGF (Not Specified) Review of Systems Constitutional: Positive for fatigue. Negative for recent unintentional weight gain and recent unintentional weight loss. HENT: Negative for new or significant hearing loss. Eyes: Negative for blurred vision and double vision. Respiratory: Negative for cough, new or significant shortness of breath and snoring. Cardiovascular: See HPI. Gastrointestinal: Positive for constipation. Negative for blood in stool and melena. Genitourinary: Negative for dysuria. Musculoskeletal: Positive for joint stiffness/pain. Negative for myalgias. Skin: Negative for rash. Neurological: Negative for tingling/numbness and focal weakness. Endo/Heme/Allergies: Negative for new or significant bruising/bleeding and polydipsia. Psychiatric/Behavioral: Negative for depression and new or significant memory loss. Vitals: 06/29/22 1200 BP: 138/58 BP Location: Left arm Pulse: (!) 59 Weight: 95.7 kg (211 lb) Height: 5' 3 (1.6 m) Body mass index is 37.38 kg/m??. Cardiac Exam Rate/Rhythm: Normal rate and regular rhythm. PMI: PMI is not displaced. Pulses: Normal pulses. Femoral pulses are 2+ on the right side and 2+ on the left side. Heart Sounds: Normal heart sounds. Normal S1 sounds. Normal S2 sounds. No gallop present. No S3. NoS4. Murmurs: Physical Exam Constitutional: No distress. Healthy Appearance. Obese. HENT: Oropharynx clear. Eyes: Pupils equal, round, [...] findings. Diagnoses/Impression: 1. Coronary artery disease involving [place] coronary artery of [place] heart without angina pectoris 2. NSTEMI (non-ST elevated myocardial infarction) ([facility]) 3. S/P coronary artery stent placement 4. Primary hypertension 5. Other hyperlipidemia Referring Provider: No ref. provider found PCP: SUKHJINEDR PAT MD * Ace Carlson MD - 06/29/2022 12:00 PM CST HISTORY OF PRESENT ILLNESS: Mrs. Morrow is seen in the cardiology clinic today for her scheduled annual followup visit. She is a 72-year-old woman with a history of coronary artery disease, status post NSTEMI, requiring a stenting of the right coronary artery in 2019, hypertension and hyperlipidemia. She also has a history of rheumatoid arthritis and is followed by Dr. Funez. Mrs. Morrow reports that she is doing quite well from a cardiac standpoint. She denies any anginalchest pain or shortness of breath. She has had no overt symptoms of congestive heart failure such as paroxysmal nocturnal dyspnea, orthopnea, or pedal edema. She denies any palpitations, syncope, or near syncope. She has had no claudication or recent symptoms to suggest a TIA or CVA. She is tolerating her present medications well. She has been taking Plavix in place of Aspirin antiplatelet therapy due to her sensitivity to Aspirin. An echocardiogram performed at [facility] in November of 2019 revealed well preserved overall left ventricular systolic function with a calculated left ventricular ejection fraction of 67%. There did appear to be some hypokinesis of the basal inferior septal segment. Mild mitral regurgitation was present. RECOMMENDATIONS AND PLAN: Mrs. Morrow'dionne cardiac status appears clinically stable at the present time without ongoing anginal chest pain, overt symptoms of congestive heart failure, or clinical evidence of hemodynamically significant arrhythmias. Continued medical therapy and aggressive cardiac risk factor modification seem most appropriate at the present time. I have recommended the following to Mrs. Morrow: 1. Aggressive attempts at weight loss and participation in some sort of exercise program. 2. Lipid management per Dr. Pat's expertise. A reasonable goal would be to maintain an LDL cholesterol fraction of less than 70 associated with a normal total cholesterol to HDL cholesterol ratio and serum triglyceride level. 3. Annual followup in the cardiology clinic. I have encouraged Mrs. Morrow to contact me in the meantime should she have any questions or problems. #[id number] /[id number] documented in this encounter Plan of Treatment Upcoming Encounters Date Type Department Care Team (Late st Contact Info) Description 07/08/2024 2:45 PM CDT Office Visit [facility] [place] [phone] La Metz MD [address] [place] [address] documented as of this encounter Visit Diagnoses Diagnosis Coronary artery disease involving [place] coronary artery of [place] heart without angina pectoris- Primary NSTEMI (non-ST elevated myocardial infarction) ([facility]) Acute myocardial infarction, subendocardial infarction, episode of care unspecified S/P coronary artery stent placement Postsurgical percutaneous transluminal coronary angioplasty status Primary hypertension Unspecified essential hypertension Other hyperlipidemia documented in this encounter Care Teams Sql Ssrs Developer Relationship Specialty Start Date End Date Sukhjinder Pat MD [address] [place] [phone] PCP - General INTERNAL MEDICINE 02/26/20 Ace Carlson MD [address] [place] [address] [place] Piano Bench Assembler CARDIOVASCULAR DISEASE 02/26/20 11/04/23 documented as of this encounter
--- OUTSIDE RECORDS SUMMARY | 2024-04-19 04:39 | XMS_ITS | Clinical Summary ---
Author Organization [facility] Address [facility] [place] [address] [place] [address] Care Team Providers Care Client Delivery Manager Name Role Phone Keesha Goss MD Primary Care Provider [phone] La Metz MD Unavailable Allergies Active Allergy Reactions Criticality Noted Date Comments Piperacillin Sod-Tazobactam So Rash Low 05/15 Sulfa Antibiotics Rash Medium 01/13/2020 Medications metoprolol tartrate 25 MG tablet Take 1 tablet (25 mg total) by mouth 2 (two) times daily. 01/13/2020 Active Multiple Vitamin (MULTIVITAMIN) capsule Take 1 capsule by mouth daily. Active pantoprazole EC 40 MG tablet Take 1 tablet (40 mg total) by mouth daily. 12/25/2019 Active pioglitazone 15 MG tablet Take 0.5 tablets (7.5 mg total) by mouth as needed. 11/14/2019 Active omega-3 fatty acid 500 MG capsule Take 1 capsule (500 mg total) by mouth daily. Active sucralfate 1 G tablet Take 1 tablet (1 g total) by mouth 4 (four) times daily before meals and nightly. As needed 02/26/2021 Active Blood Glucose Monitoring Suppl (TRUE METRIX METER) w/Device Kit 10/05/2021 Active TRUE METRIX BLOOD GLUCOSE TEST test strip 10/05/2021 Act shahriar TRUEplus Lancets 28G Misc 10/05/2021 Active losartan-hydroC HLOROthiazide 100-12.5 MG Tab Take 1 tablet by mouth daily. 05/30/2022 Active rosuvastatin (CRESTOR) 5 MG tablet Take 1 tablet (5 mg total) by mouth daily. 04/01/2022 Active hydroxychloroqu ine (PLAQUENIL) 200 MG tablet 05/30/2022 Activ e triamcinolone (KENALOG) 0.1 % cream 06/30/2023 Active ipratropium (ATROVENT) 0.06 % nasal spray 06/01/2023 Activ e indapamide (LOZOL) 1.25 MG tablet 05/19/2023 Active azelastine (ASTELIN) 0.1 % nasal spray 06/01/2023 Active Active Problems Problem Noted Date Diagnosed Date NSTEMI (non-ST elevated myoc ardial infarction) ([facility]) 06/12/2020 Coronary artery disease invo lving [place] coronary artery of [place] heart without angina pectoris 06/12/2020 S/P coronary artery stent placement 06/12/2020 Other hyperlipidemia 06/12/2020 Rheumatoid arteritis ([facility]) Diabetes ([facility]) GERD (gastroesophageal reflux disease) HTN (hypertension) Migraines Family History Medical History Relation Comments Heart Attack Brother Stent Cardiac Brother Stroke Paternal Grandfather Stroke Paternal Grandmother Relation Status Comments Brother Paternal Grandfather Paternal Grandmother Social History Tobacco Use Types Packs/Day Years [...] on file Sexual Orientation Not on file Last Filed Vital Signs Vital Sign Reading Time Taken Comments Blood Pressure 126/43 07/05/2023 11:38 AM DIRECTOR LEARNING AND DEVELOPMENT Pulse 70 07/05/2023 11:38 AM DIRECTOR LEARNING AND DEVELOPMENT Temperature - - Respiratory Rate 12 07/05/2023 11:38 AM DIRECTOR LEARNING AND DEVELOPMENT Oxygen Saturation 95% 07/05/2023 11:38 AM DIRECTOR LEARNING AND DEVELOPMENT Inhaled Oxygen Concentration - - Weight 99.3 kg (219 lb) 07/05/2023 11:38 AM DIRECTOR LEARNING AND DEVELOPMENT Height 157.5 cm (5' 2 ) 07/05/2023 11:38 AM DIRECTOR LEARNING AND DEVELOPMENT Body Mass Index 40.06 07/05/2023 11:38 AM DIRECTOR LEARNING AND DEVELOPMENT Plan of Treatment Upcoming Encounters Date Type Department Care Team (Late st Contact Info) Description 07/08/2024 2:45 PM CDT Office Visit [facility] [place] [address] La Metz MD [address] [place] [address] Health Maintenance Due Date Last Done Comments ASCVD Statin 1950 Colorectal Cancer Screening Colonoscopy (10 Years) 1950 Kidney Health Evaluation 1950 Diabetes: Retinopathy Eye Exam 1967 Hepatitis C 1967 DTaP, Tdap and Td Vaccines (1 - Tdap) 01/15/1968 Zoster Vaccines (1 of 2) 1999 RSV Immunization or 60+ Years (1 - 1-dose 60+ series) 2009 Annual Medicare Wellness Visit 2014 Dexa Scan (General) 2014 Hemoglobin A1C 12/06/2021 06/08/2021, 05/11/2020 ASCVD LDL 06/27/2023 06/27/2022, 02/0 11/2021, 05/11/2020 Lipid Panel 06/27/2023 06/27/2022, 02/0 11/2021, 05/11/2020 COVID-19 Vaccine ( season) 2023 02/08/2021, 08/05/2020, 07/08/2020 Influenza Adult (#1) 2024 03/03/2023, 03/31/2022, 03/16/2021, Additional history exists Pneumococcal Vaccine: 65+ Years Completed 12/07/2016, 04/28/2015 Meningococcal Vaccine Aged Out No stephen celena eligible based on patient's age to complete this topic RSV Immunizations Under 20 Months Aged Out No longer eligible based on patient's age to complete this topic Procedures Procedure Name Priority Date/Time Associated Diagnosis Comments LIPID PANEL Routine 06/27/2022 HEMOGLOBIN, GLYCOSYLATED Routine 06/08/2021 from Last 3 Months or Most Recently Relevant to Health Maintenance Results * LIPID PANEL (06/27/2022) CHOLESTEROL 194 <200 HDL 45 >or=50 TRIGLYCERIDES 138 <150 NON HDL CHOLESTEROL 149 <130 CHOL/HDL RATIO 4.3 <5.0 LDL (CALCULATED) 123 06/27/2022 us Default History Genericprovider LABORATORY Final Result * HEMOGLOBIN, GLYCOSYLATED (06/08/2021) HGB A1C 6.1 % 06/08/2021 us Doc [facility] LABORATORY Final Result from Last 3 Months or Most Recently Relevant to Health Maintenance Insurance HUMAN Care Teams Client Delivery Manager Relationship Specialty Start Date End Date Keesha Goss MD [address] [place] [address] PCP - General INTERNAL MEDICINE 02/26/20 La Metz MD [address] [place] [address] Consulting Physician CARDIOVASCULAR DISEASE 11/05/23
--- OUTSIDE RECORDS SUMMARY | 2024-04-19 04:39 | XMS_ITS | Encounter Summary ---
Author Organization [facility] Address [address] [place] [address]. [place] [address] [place] [address] Care Team Providers Care Dandy Tender Name Role Phone Sukhjinder Pat MD Primary Care Provider [phone] Ace Carlson MD Unavailable Unavailabl e Reason for Visit * Reason Comments Follow Up Encounter Details Date Type Department Care Team (Late st Contact Info) Description 06/23/2021 8:00 AM CARE ASSISTANT Office Visit [facility] [place] [phone] Ace Carlson MD Follow Up Social History [...] Coronavirus/COVID-19? No / Unsure 06/23/2021 7:27 AM CARE ASSISTANT documented as of this encounter Last Filed Vital Signs Vital Sign Reading Time Taken Comments Blood Pressure 131/59 06/23/2021 8:05 AM CARE ASSISTANT Pulse 70 06/23/2021 8:00 AM CARE ASSISTANT Temperature - - Respiratory Rate 20 06/23/2021 8:00 AM CARE ASSISTANT Oxygen Saturation 98% 06/23/2021 8:00 AM CARE ASSISTANT Inhaled Oxygen Concentration - - Weight 97.7 kg (215 lb 6.4 oz) 06/23/2021 8:00 A M CARE ASSISTANT Height 157.5 cm (5' 2 ) 06/23/2021 8:00 AM CARE ASSISTANT Body Mass Index 39.4 06/23/2021 8:00 AM CARE ASSISTANT documented in this encounter Patient Instructions * Patient Instructions* Filomena Nichole RN - 06/23/2021 8:00 AM CARE ASSISTANT Images from the original note were not included. MEDICATION CHANGES: Rosuvastatin (crestor) 10 mg - take 1 tablet at bedtime Clopidogrel (plavix) 75 mg- take 1 tablet daily Patient Education Patient Education Weight Loss Diet About this topic There are many trendy weight loss diets that are popular today. Many of these diets can end up being more harmful than helpful. The healthiest way to lose weight is to burn more calories than you eat. A weight loss diet should help you have a healthy view of eating. It is NOT healthy to stop eating to try and lose weight. A good diet plan will help you cut down your food intake and make healthy choices. A healthy weight loss goal is 1 to 2 pounds (0.5 to 1 kg) per week. Reducing calories in your diet,burning calories through exercise, or both can help you lose weight. Combining a healthy diet with regular physical activity can help you get the best results. To cut calories in your diet you can: ?? Switch from whole milk to 1% or skim milk. ?? Switch from regular cheese to low-fat or fat-free cheese. ?? Use healthier condiment choices: ? Fat-free or low-fat sour cream or salad dressings ? [place] butter ? Diet syrups or jellies over regular ?? Try frozen yogurt as a dessert rather than eating ice cream. ?? Skip the chips. Snack on carrots, vegetables, or fruit. If chips are a favorite of yours, try the baked style and watch portion size. ?? Eat grilled, roasted, boiled, broiled, or baked meats. Avoid deep-frying. Choose skinless poultry, lean red meat, lean cuts of pork, and fish for good protein sources. ?? Try flavored no-calorie hernandez. Do not drink soda and juices that have many calories. ?? Choose fruit instead of sweets. General ?? Eating smaller meals more often may be helpful. This will keep you from overeating at your next meal. Also, eating meals slowly helps you feel full faster. ?? If eating 3 meals is a part of your lifestyle, choose more lean proteins and higher fiber foods to fill you up at each meal. ?? Do not skip meals. Most often if you skip a meal, you eat too much at the next meal. ?? Eat smaller portions. Use a smaller plate or bowl for meals, and when you are eating out, eat half and take the rest home. ?? Plan ahead. Plan your meals and grocery list before going to the store. Planning will keep you from getting meals from restaurants. ?? Do not go to the grocery store hungry. You are more likely to buy snacks that are not good for you. ?? Portion out snacks. When you are having a snack, instead of grabbing the whole bag, portion a small amount out to give yourself a stopping point. ?? Drink water before and after your meals to help fill you up without the calories. ?? When eating starchy foods, choose whole-grain products. These have a lot of fiber which will make you feel full. Fiber also helps lower cholesterol and helps with bowel function. ?? If you need a helpful start, ask your doctor to send you to a dietitian for weight loss help. What will the results be? Losing excess weight will make your whole body healthier. You will have more energy for your daily activities and lower your risk for health problems. What lifestyle changes are needed? Stay active. Eating healthy is not always enough to lose weight. Burning calories by exercising is a big part of weight loss. What foods are good to eat? The ruiz is to watch your portion sizes. It is best to choose foods that are lower in fat and calories. ?? Choose lean meats: ? Boneless, skinless chicken breast ? Pork loin ? 90% lean beef ? Lean turkey meat ? Fresh fish (not fried) ?? Choose low-fat dairy products: ? 1% or skim milk ? [place] butter or margarine ? Low-fat or fat-free cheese ? Frozen yogurt or low-calorie ice cream ?? Choose fresh fruits, vegetables, beans and lentils, and whole wheat products more often. ?? Choose water to drink more often. Drink diet or no-calorie beverages when you want something other than water. Aim to get your calories from the foods you eat. ?? Choose smart snacks: ? Fruits ? Vegetables ? Low-fat or nonfat yogurt ? Low-fat or no-fat cheese, such as cottage cheese ? Unsalted nuts ? Hard-boiled egg ? Hummus ? Guacamole ? Natural peanut butter ? Popcorn with no butter ? use pepper, garlic, or another spice to taste ? Whole grain crackers What foods should be limited or avoided? Limit high-fat, high-sodium, and high-calorie foods like: ?? Fried foods ?? Processed meats ?? Whole-fat dairy products ?? Candy, cookies, chips, pastries ?? Sausage, andrews, any full-fat meats ?? Soda, juice ?? Beer, wine, and mixed drinks (alcohol) Will there be any other care needed? What do I do first before trying to lose weight? ?? Talk to your doctor and dietitian to see if you need to lose weight. Work with them to set your weight loss goals. ?? If you have a chronic illness, such as high blood sugar or high blood pressure, ask a doctor or dietitian what diet and exercise is right for you. ?? Ask your doctor about how much you are able to exercise and what type of exercise is good for you. Helpful tips ?? Keep a food journal to help keep you on track. ?? Join a support group. Tips for burning calories: ?? If your workplace is near your house, choose to walk or bike to work instead of driving. ?? Take 20-minute walks each day. Walk around during your lunch break. You will not only burn calories, but will raise your energy for the rest of the day. ?? Take the stairs over the elevator. ?? Join a gym or exercise class with a friend. ?? Try to exercise 30 minutes a day for overall health. Three 10-minute sessions work too. Aim for 60 to 90 minutes a day to lose weight. ?? Drink lots of water before, during, and after exercise. Where can I learn more? Academy of Nutrition and Dietetics https://www.eatright.org/health/weight-loss/ejul-hgyqbw-kxz-your-weight/back-to- prbwgw-knv-tnyftup-weight-loss Centers for Disease Control and Prevention https://www.cdc.gov/healthyweight/healthy_eating/index.html Familydoctor.org https://familydoctor.org/wpbaufmnb-pbhway-devu-vyqp-ydgo-ajh-diets/ NHS https://www.nhs.uk/live-well/healthy-weight/97-sxqt-sf-bozi-bym-kcrb-weight/?tab name=jju-ukt-bphe-weight Last Reviewed Date 2020-10-22 Consumer Information Use and Disclaimer This generalized information is a limited summary of diagnosis, treatment, and/or medication information. It is not meant to be comprehensive and should be used as a tool to help the user understand and/or assess potential diagnostic and treatment options. It does NOT include all information about conditions, treatments, medications, side effects, or risks that may apply to a specific patient. Itis not intended to be medical advice or a substitute for the medical advice, diagnosis, or treatment of a health care provider based on the health care provider's examination and assessment of a patient???s specific and unique circumstances. Patients must speak with a health care provider for complete information about their health, medical questions, and treatment options, including any risks orbenefits regarding use of medications. This information does not endorse any treatments or medications as safe, effective, or approved for treating a specific patient. [employer] and its affiliates disclaim any warranty or liability relating to this information or the use thereof. The use of this information is governed by the Terms of Use, available at https://www.fromAtoB.Venda/en/solutions/lexicomp/about/boris Copyright Copyright ?? 2020 [employer] and its affiliates and/or licensors. All rights reserved. ASSISTANT documented in this encounter Progress Notes * Ace Carlson MD - 06/23/2021 8:00 AM CST Reason for Visit: Follow Up History of Present Illness: Recommendations and Plan: Medications: Current Outpatient Medications: ??? clopidogrel 75 MG tablet, Take 1 tablet (75 mg total) by mouth daily., Disp: 90 tablet, Rfl: 2 ??? losartan-hydroCHLOROthiazide 50-12.5 MG tablet, Take 1 tablet by mouth daily., Disp: , Rfl: ??? methotrexate 2.5 MG tablet, Take 1 tablet by mouth. Four times a week, Disp: , Rfl: ??? metoprolol tartrate [...] , Rfl: ??? pioglitazone 15 MG tablet, daily., Disp: , Rfl: ??? rosuvastatin 10 MG tablet, Take 1 tablet (10 mg total) by mouth nightly at bedtime., Disp: 30 tablet, Rfl: 11 ??? sucralfate 1 G tablet, , Disp: , Rfl: Allergies Allergen Reactions [...] History Tobacco Use ??? Smoking status: Former Smoker Quit date: 11/2019 Years since quittin.5 ??? Smokeless tobacco: Never Used Family History Problem Relation Name Age of Onset ??? Heart Attack Brother ??? Stent Brother ??? Stroke Paternal Grandmother ??? Stroke Paternal Grandfather Family Status Relation Name Status ??? Brother (Not Specified) ??? PGM (Not Specified) ??? PGF (Not Specified) Review of Systems Constitutional: Negative for recent unintentional weight gain, recent unintentional weight loss andnew or significant fatigue. HENT: Negative for new or significant hearing loss. Eyes: Negative for blurred vision and double vision. Respiratory: Negative for cough, new or significant shortness of breath and snoring. Cardiovascular: See HPI. Gastrointestinal: Negative for blood in stool and melena. Genitourinary: Negative for dysuria. Musculoskeletal: Negative for myalgias and new or worsening joint stiffness/pain. Skin: Negative for rash. Neurological: Negative for tingling/numbness and focal weakness. Endo/Heme/Allergies: Negative for new or significant bruising/bleeding and polydipsia. Psychiatric/Behavioral: Negative for depression and new or significant memory loss. Vitals: 06/23/21 0800 06/23/21 0805 BP: 111/52 131/59 BP Location: Left arm Right arm Pulse: 70 Weight: 97.7 kg (215 lb 6.4 oz) Height: 5' 2 (1.575 m) Body mass index is 39.4 kg/m??. Cardiac Exam Rate/Rhythm: Normal rate and [...] No abdominal bruit present. Pulmonary: Effort normal. Few crackles in lungs. Skin: No rash. No cyanosis. No clubbing. [...] the provider to reflect his/her findings. Diagnoses/Impression: No diagnosis found. Referring Provider: No ref. provider found PCP: SUKHJINDER PAT MD * Ace Carlson MD - 06/23/2021 12:00 AM CST HISTORY OF PRESENT ILLNESS: Ms. Morrow is seen in the cardiology clinic today for a scheduled followup visit. She reports that she is doing well from a cardiac standpoint. Ms. Morrow patient denies any anginal chest pain or shortness of breath. She has had no overt symptoms of congestive heart failure such as paroxysmal nocturnal dyspnea, orthopnea, or pedal edema. She has had no palpitations, syncope, or near syncope. She denies any recent symptoms to suggest a TIAor CVA. She has had no claudication and seems to be tolerating her present medications well. A review of the available records shows that a lipid panel performed in June of this year showed a total serum cholesterol of 193 with an LDL cholesterol fraction of 116 and a total cholesterol to HDL cholesterol ratio of 3.7. Serum triglycerides were 136. A serum ALT was normal at 29. RECOMMENDATIONS AND PLAN: Ms. Morrow's cardiac status appears clinically stable at the present time without ongoing cardiac symptomatology. Continued medical therapy and aggressive cardiac risk factor modification seem most appropriate at the present time. I have recommended the following to Ms. Morrow: 1. Begin antiplatelet therapy using Plavix 75 mg p.o. q.a.m. 2. Increase Crestor dosing to 10 mg p.o. at bedtime. This will be taken in addition to Coenzyme X04718 mg p.o. daily in an effort to avoid side effects. The patient has informed me that this has already been done and thus, she will require followup lipid panel and serum ALT 4-6 weeks after this change. A reasonable goal would be to maintain an LDL cholesterol fraction of 70 or less associated with a normal total cholesterol to HDL cholesterol ratio and serum triglyceride level. 3. Aggressive attempts at weight loss and participation in a regular exercise program. 4. Annual followup in the cardiology clinic. I have encouraged Ms. Morrow to contact me in the meantime should she have any questions or problems. 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 angina pectoris- Primary NSTEMI (non-ST elevated myocardial infarction) ([facility]) Acute myocardial infarction, subendocardial infarction, episode of care unspecified S/P coronary artery stent placement Postsurgical percutaneous transluminal coronary angioplasty status Primary hypertension Unspecified essential hypertension Other hyperlipidemia documented in this encounter Care Teams Dandy Tender Relationship Specialty Start Date End Date Sukhjinder Pat MD [address] [place] [address] PCP - General INTERNAL MEDICINE 02/26/20 Ace Carlson MD [address] [place] [address] [place] Photographic Hand Developer CARDIOVASCULAR DISEASE 02/26/20 11/04/23 documented as of this encounter
--- OUTSIDE RECORDS SUMMARY | 2024-04-19 04:39 | XMS_ITS | Encounter Summary ---
Author Organization [facility] Address [address] [place] [address]. [place], [place] [address] [place] [address] Care Team Providers Care Veterinary Meat Inspector Name Role Phone Keesha Goss MD Primary Care Provider [phone] Ace Carlson MD Unavailable Unavailabl e La Metz MD Unavailable Encounter Details Date Type Department Care Team (Late st Contact Info) Description 07/08/2022 Abstract [facility] [address] [place] [address] Ace Carlson MD Social History Tobacco Use Types Packs/Day Years [...] Coronavirus/COVID-19? No / Unsure 06/29/2022 11:32 AM BIG DATA SOLUTIONS ARCHITECT documented as of this encounter Plan of Treatment Upcoming Encounters Date Type Department Care Team (Late st Contact Info) Description 07/08/2024 2:45 PM CDT Office Visit [facility] [place] [address] La Metz MD [address] [place] [address] documented as of this encounter Procedures Procedure Name Priority Date/Time Associated Diagnosis Comments CMP (ABSTRACTED LAB) Routine 06/27/2022 C REACTIVE PROTEIN QUANT Routine 06/27/2022 CBC (OUTSIDE LAB) Routine 06/27/2022 SED RATE, ERYTHROCYTE (ESR) Routine 06/27/2022 CK (CPK) Routine 06/27/2022 documented in this encounter Results * C REACTIVE PROTEIN QUANT (06/27/2022) Pathologist [facility] C-REACTIVE PROTEIN 19.9 <8.0 06/27/2022 us Default History Genericprovider LABORATORY Final Result * CBC (OUTSIDE LAB) (06/27/2022) Pathologist [facility] WBC 5.9 3.8 - 10.8 HGB 12.2 11.7 - 15.5 HCT 35.7 35.0 - 45.0 PLT 266 140 - 400 RBC 3.63 3.80 - 5.10 06/27/2022 Default History Genericprovider LAB-OUTSIDE/ABST RACTED Final Result * SED RATE, ERYTHROCYTE (ESR) (06/27/2022) Pathologist [facility] SED RATE 36 0 - 30 06/27/2022 us Default History Genericprovider LABORATORY Final Result * CK (CPK) (06/27/2022) Pathologist [facility] CPK 35 29 - 143 06/27/2022 us Default History Genericprovider LABORATORY Final Result * CMP (ABSTRACTED LAB) (06/27/2022) SODIUM S/P/B 141 POTASSIUM S/P/B 4.4 CHLORIDE S/P/B 104 CO2 31 BUN 15 CREATININE S/P/B 0.85 0.5 - 1.0 EGFR NON-AFR. AMER. 72 <=90 CALCIUM S/P/B 9.4 GLUCOSE 109 mg/dL TOTAL PROTEIN S/P/B 6.2 ALBUMIN S/P/B 3.9 3.5 - 5.0 AST 27 ALT 38 ALKALINE PHOSPHATASE S/P/B 79 BILIRUBIN TOTAL S/P/B 0.5 06/27/2022 us Default History Genericprovider LAB-OUTSIDE/ABST RACTED Final Result documented in this encounter Visit Diagnoses Not on filedocumented in this encounter Care Teams Veterinary Meat Inspector Relationship Specialty Start Date End Date Keesha Goss MD [address] [place] [phone] PCP - General INTERNAL MEDICINE 02/26/20 Ace Carlson MD [address] [place] [phone] [place] Collar Separator CARDIOVASCULAR DISEASE 02/26/20 11/04/23 La Metz MD [address] [place] [address] Consulting Physician CARDIOVASCULAR DISEASE 11/05/23 documented as of this encounter
--- OUTSIDE RECORDS SUMMARY | 2024-04-19 04:39 | XMS_ITS | Encounter Summary ---
Author Organization [facility] Address [address] [place] [address]. [place], [place] [address] [place] [address] Care Team Providers Care Teacher Of Gifted Students Name Role Phone Keesha Goss MD Primary Care Provider [phone] Ace Carlson MD Unavailable Unavailabl e La Metz MD Unavailable Encounter Details Date Type Department Care Team (Late st Contact Info) Description 07/07/2022 Abstract [facility] [address] [place] [address] Ace Carlson MD Social History [...] Coronavirus/COVID-19? No / Unsure 06/29/2022 11:32 AM GEOTECHNICAL ENGINEERING TECHNICIAN documented as of this encounter Plan of Treatment Upcoming Encounters Date Type Department Care Team (Late st Contact Info) Description 07/08/2024 2:45 PM CDT Office Visit [facility] [place] [address] La Metz MD [address] [place] [address] documented as of this encounter Procedures Procedure Name Priority Date/Time Associated Diagnosis Comments LIPID PANEL Routine 06/27/2022 documented in this encounter Results * LIPID PANEL (06/27/2022) CHOLESTEROL 194 <200 HDL 45 >or=50 TRIGLYCERIDES 138 <150 NON HDL CHOLESTEROL 149 <130 CHOL/HDL RATIO 4.3 <5.0 LDL (CALCULATED) 123 06/27/2022 us Default History Genericprovider LABORATORY Final Result documented in this encounter Visit Diagnoses Not on filedocumented in this encounter Care Teams Teacher Of Gifted Students Relationship Specialty Start Date End Date Keesha Goss MD [address] [place] [phone] PCP - General INTERNAL MEDICINE 02/26/20 Ace Carlson MD [address] [place] [phone] [place] Projection Welding Machine Operator CARDIOVASCULAR DISEASE 02/26/20 11/04/23 La Metz MD [address] [place] [address] Consulting Physician CARDIOVASCULAR DISEASE 11/05/23 documented as of this encounter
--- OUTSIDE RECORDS SUMMARY | 2024-04-19 04:40 | XMS_ITS | Encounter Summary ---
Author Organization [facility] Address [address] [place] [address]. [place] [address] [place] [address] Care Team Providers Care Director Environmental Name Role Phone Keesha Goss MD Primary Care Provider [phone] Ace Carlson MD Unavailable Unavailabl e Reason for Visit * Reason Onset Date Comments Appointment Request 02/26/2020 [place] Encounter Details Date Type Department Care Team ([facility] Contact Info) Description 02/26/2020 Telephone [facility] [address] [place] [phone] Ace Carlson MD Appointment Request ([place]) Social History Tobacco Use Types Packs/Day Years Used Date Smoking Tobacco: Never Assessed Comments Unknown Sex and Gender Information Value Date Recorded Sex Assigned at Not on file Legal Sex Female 10:13 AM CDT Gender Identity Not on file Sexual Orientation Not on file documented as of this encounter Progress Notes * Parisa Booker - 02/28/2020 9:56 AM CDT Called Pt to schedule appointment in [place]. Scheduled for 05/14/2020 at 11:00. She agreed. Reminder letter mailed. * Parisa Booker - 02/26/2020 10:21 AM CDT Pt called to schedule new patient appt in [place]. Informed pt that schedule is full for the rest of the year and May schedule not out yet. Told pt I would call her when the May schedule is out. She agreed. Release of records mailed to patient to obtain prior cardiac records. documented in this encounter Plan of Treatment Upcoming Encounters Date Type Department Care Team (Late st Contact Info) Description 07/08/2024 2:45 PM CDT Office Visit [facility] [address] [place] [address] La Metz MD [address] [place] [address] documented as of this encounter Visit Diagnoses Not on filedocumented in this encounter Care Teams Director Environmental Relationship Specialty Start Date End Date Keesha Goss MD [address] [place] [phone] PCP - General INTERNAL MEDICINE 02/26/20 Ace Carlson MD [address] [place] [address] [place] Test Cell Technician CARDIOVASCULAR DISEASE 02/26/20 11/04/23 documented as of this encounter
--- OUTSIDE RECORDS SUMMARY | 2024-04-19 04:40 | XMS_ITS | Encounter Summary ---
Author Organization [facility] Address [address] [place] [address]. [place] [address] [place] [address] Care Team Providers Care Community Leader Name Role Phone Keesha Goss MD Primary Care Provider [phone] Ace Carlson MD Unavailable Unavailabl e Encounter Details Date Type Department Care Team (Late Contact Info) Description 06/10/2021 Abstract [facility] [address] [place] [address] Abstract, Doc [facility] Social History Tobacco Use Types Packs/Day Years [...] Coronavirus/COVID-19? No / Unsure 06/23/2021 7:27 AM CHEESEMAKER HELPER documented as of this encounter Plan of Treatment Upcoming Encounters Date Type Department Care Team (Late st Contact Info) Description 07/08/2024 2:45 PM CDT Office Visit [facility] [place] [address] La Metz MD [address] [place] [address] documented as of this encounter Procedures Procedure Name Priority Date/Time Associated Diagnosis Comments SED RATE, ERYTHROCYTE, AUTO Routine 06/21/2021 FOLATE (OUTSIDE LAB) Routine 06/08/2021 CYCLIC CITRULLINATED PEPTIDE (CCP)ANTIBODY(IGG) Routine 06/08/2021 HEMOGLOBIN, GLYCOSYLATED Routine 06/08/2021 RHEUMATOID FACTOR QUAL Routine 06/08/2021 COMPREHENSIVE METABOLIC PANEL Routine 06/08/2021 LIPID PANEL Routine 06/08/2021 C-REACTIVE PROTEIN Routine 06/08/2021 CBC W/DIFF AUTOMATED Routine 06/08/2021 VITAMIN D 1,25 DIHYDROXY Routine 06/08/2021 documented in this encounter Results * SED RATE, ERYTHROCYTE, AUTO (06/21/2021) SED RATE 11 06/21/2021 us Doc [facility] Abstract LABORATORY Final Result * HEMOGLOBIN, GLYCOSYLATED (06/08/2021) HGB A1C 6.1 % 06/08/2021 us Doc [facility] Abstract LABORATORY Final Result * RHEUMATOID FACTOR QUAL (06/08/2021) RHEUMATOID FACTOR 127 06/08/2021 us Doc [facility] Abstract LABORATORY Final Result * (ABNORMAL) CYCLIC CITRULLINATED PEPTIDE (CCP)ANTIBODY(IGG) (06/08/2021) CYCLIC CITRULLINATED PEPTIDE 250(A) <=59 Comment:>250 06/08/2021 us Doc [facility] Abstract LABORATORY Final Result * C-REACTIVE PROTEIN (06/08/2021) Pathologist [facility] CRP 5.2 06/08/2021 us Doc [facility] Abstract LABORATORY Final Result * (ABNORMAL) FOLATE (OUTSIDE LAB) (06/08/2021) [facility] FOLATE 361(A) <=280 06/08/2021 us Doc [facility] Abstract LAB-OUTSIDE/ABSTRACTED Final Result * VITAMIN D 1,25 DIHYDROXY (06/08/2021) [facility] VITAMIN D 1 25 DIHYDROXY S/P/B 34 06/08/2021 us Doc [facility] Abstract LABORATORY Final Result * CBC W/DIFF AUTOMATED (06/08/2021) [facility] WBC 8.0 RBC 4.59 HGB 14.3 HCT 43.4 MCV 94.6 MCH 31.2 MCHC 32.9 RDW 14.0 PLT 259 MPV 12.0 NEUTROPHILS % 53.7 LYMPHOCYTES % 36.14 MONOCYTES % 7.0 EOSINOPHILS % 2.4 BASOPHILS % 0.5 ABS. NEUTROPHILS 4,296 ABS. LYMPHOCYTES 2,912 ABS. MONOCYTES 560 ABS. BASOPHILS 40 06/08/2021 us Doc [facility] Abstract LABORATORY Final Result * (ABNORMAL) COMPREHENSIVE METABOLIC PANEL (06/08/2021) [facility] SODIUM S/P/B 139 POTASSIUM S/P/B 4.3 CO2 31 CHLORIDE S/P/B 103 GLUCOSE 103(A) 65 - 99 mg/dL CALCIUM S/P/B 9.8 BUN 17 CREATININE S/P/B 1.17(A) 0.5 - 1.0 EGFR AFR. AMER. 54 <=90 EGFR NON-AFR. AMER. 47 <=90 ALKALINE PHOSPHATASE S/P/B 71 ALT 29 AST 24 BILIRUBIN TOTAL S/P/B 71 ALBUMIN S/P/B 2.1(A) 3.5 - 5.0 TOTAL PROTEIN S/P/B 6.5 06/08/2021 us Doc [facility] Abstract LABORATORY Final Result * (ABNORMAL) LIPID PANEL (06/08/2021) CHOLESTEROL `193 HDL 52 TRIGLYCERIDES 136 CHOL/HDL RATIO 141(A) <=130 LDL (CALCULATED) 116(A) <=70 06/08/2021 us Doc [facility] Abstract LABORATORY Final Result documented in this encounter Visit Diagnoses Not on filedocumented in this encounter Care Teams Community Leader Relationship Specialty Start Date End Date Keesha Goss MD [address] [place] [phone] PCP - General INTERNAL MEDICINE 02/26/20 Ace Carlson MD [address] [place] [address] [place] [employer] Linux Administrator CARDIOVASCULAR DISEASE 02/26/20 11/04/23 documented as of this encounter
--- OUTSIDE RECORDS SUMMARY | 2024-04-19 04:40 | XMS_ITS | Encounter Summary ---
Author Organization [facility] Address [address] [place] [address]. [place] [address] [place] [address] Care Team Providers Care Parts Cleaner Name Role Phone Keesha Goss MD Primary Care Provider Ace Carlson MD Unavailable Unavailabl e Encounter Details Date Type Department Care Team (Late st Contact Info) Description 06/23/2020 Orders Only [facility] [address] [place] [address] Abstract, Doc [facility] Social History [...] Description 07/08/2024 2:45 PM CDT Office Visit [facility] [place] [address] La Metz MD [address] [place] [address] documented as of this encounter Procedures Procedure Name Priority Date/Time Associated Diagnosis Comments XA CORONARY INTERVENTION Routine 12/27/2019 NM PHARM NUC STRESS TEST 1DAY Routine 12/26/2019 USE ECHOCARDIOGRAM Routine 12/26/2019 ECG 12-LEAD Routine 12/25/2019 documented in this encounter Results * XA CORONARY INTERVENTION (12/27/2019) Anatomical Region Laterality Modality Cardiac Staple Cutter us Doc [facility] Abstract PRESSURE TANK OPERATOR Final Result * NM PHARM NUC STRESS TEST 1DAY (12/26/2019) Anatomical Region Laterality Modality Cardiac Nuclear Medicine us Doc [facility] Abstract NUC MED Final Result * USE ECHOCARDIOGRAM (12/26/2019) Anatomical Region Laterality Modality Cardiac Echocardiogram us Doc [facility] Abstract ECHO Final Result * ECG 12 lead (12/25/2019) us Doc [facility] Abstract ECG ORDERABLES Final Result documented in this encounter Visit Diagnoses Not on filedocumented in this encounter Care Teams Parts Cleaner Relationship Specialty Start Date End Date Keesha Goss MD [address] [place] [phone] PCP - General INTERNAL MEDICINE 02/26/20 Ace Carlson MD [address] [place] [address] [place] Room Operator CARDIOVASCULAR DISEASE 02/26/20 11/04/23 documented as of this encounter
--- OUTSIDE RECORDS SUMMARY | 2024-04-19 04:40 | XMS_ITS | Encounter Summary ---
Author Organization [facility] Address [address] [place] [address]. [place] [address] [place] [address] Care Team Providers Care Technical Sales Consultant Name Role Phone Sukhjinder Pat MD Primary Care Provider [phone] Ace Carlson MD Unavailable Unavailabl e Reason for Visit * Reason Comments Consult Encounter Details Date Type Department Care Team (Late st Contact Info) Description 05/14/2020 11:00 AM PHYSICAL SCIENCE PROFESSOR Office Visit [facility] [place] [phone] Ace Carlson MD Consult Social History Tobacco Use Types Packs/Day Years Used Date Smoking Tobacco: Former Cigarettes Q uit: 11/2019 Smokeless Tobacco: Never Comments Unknown Sex and Gender Information Value Date Recorded Sex Assigned at Not on file Legal Sex Female 10:13 AM CDT Gender Identity Not on file Sexual Orientation Not on file COVID-19 Exposure Response Date Recorded In the last month, have you been in contact with someone who was confirmed or suspected to have Coronavirus / COVID-19? Unable to assess 05/12/2020 11:01 AM PHYSICAL SCIENCE PROFESSOR documented as of this encounter Last Filed Vital Signs Vital Sign Reading Time Taken Comments Blood Pressure 140/101 05/14/2020 1:58 PM PHYSICAL SCIENCE PROFESSOR Pulse 63 05/14/2020 1:57 PM PHYSICAL SCIENCE PROFESSOR Temperature - - Respiratory Rate 24 05/14/2020 1:57 PM PHYSICAL SCIENCE PROFESSOR Oxygen Saturation 98% 05/14/2020 1:57 PM PHYSICAL SCIENCE PROFESSOR Inhaled Oxygen Concentration - - Weight 96.2 kg (212 lb) 05/14/2020 1:57 PM PHYSICAL SCIENCE PROFESSOR Height 152.4 cm (5') 05/14/2020 1:57 PM PHYSICAL SCIENCE PROFESSOR Body Mass Index 41.4 05/14/2020 1:57 PM PHYSICAL SCIENCE PROFESSOR documented in this encounter Patient Instructions * Patient Instructions* Latonya Booker RN - 05/14/2020 11:00 AM PHYSICAL SCIENCE PROFESSOR 1. Sleep study 2. Weight loss 3. BP 130/80 4. RTC 1 year (December 2020) - will review records ICAL SCIENCE PROFESSOR documented in this encounter Progress Notes * Ace Carlson MD - 05/14/2020 11:00 AM CST Reason for Visit: Consult History of Present Illness: Recommendations and Plan: Medications: Current Outpatient Medications: ??? aspirin EC 81 MG tablet, Take 81 mg by mouth daily., Disp: , Rfl: ??? hydroxychloroquine (PLAQUENIL) 200 MG tablet, every 12 (twelve) hours., Disp: , Rfl: ??? isosorbide mononitrate ER 30 MG 24 hr tablet, Take 30 mg by mouth daily., Disp: , Rfl: ??? losartan-hydroCHLOROthiazide 50-12.5 MG tablet, Take 1 [...] tablet, daily., Disp: , Rfl: ??? rosuvastatin 5 MG tablet, Take 5 mg by mouth every evening., Disp: , Rfl: ??? SUMAtriptan 50 MG tablet, as needed., Disp: , Rfl: ??? ticagrelor (BRILINTA) 90 mg tablet, Take 90 mg by mouth 2 (two) times daily., Disp: , Rfl: Allergies Allergen Reactions ??? [...] Former Smoker Quit date: 11/2019 Years since quittin.4 ??? Smokeless tobacco: Never Used Family History [...] depression and new or significant memory loss. All other systems reviewed and are negative. Vitals: 05/14/20 1357 05/14/20 1358 BP: 138/49 (!) 140/101 BP Location: Left arm Right arm Pulse: 63 Weight: 96.2 kg (212 lb) Height: 5' (1.524 m) Body mass index is 41.4 kg/m??. Cardiac Exam Rate/Rhythm: Normal rate and regular rhythm. PMI: PMI is not displaced. Pulses: Normal pulses. Femoral pulses are 2+ on the right side and 2+ on the left side. Heart Sounds: Normal heart sounds. Normal S1 sounds. Normal S2 sounds. No gallop present. No S3. NoS4. Murmurs: Physical Exam Constitutional: No distress. Healthy Appearance. HENT: Oropharynx clear. Eyes: Pupils equal, round, [...] affect. Normal motor skills. Normal gait. Comments: Obese. The documentation for the above exam was created using a template entered by ancillary staff however the physical exam was completed entirely by the provider responsible for this visit. The physical exam documentation was reviewed and modified by the provider to reflect his/her findings. Diagnoses/Impression: No diagnosis found. PINNACLE Documentation Completed: Coronary Artery Disease Referring Provider: Sukhjinder Pat MD PCP: SUKHJINDER PAT MD ICAL SCIENCE PROFESSOR * Ace Carlson MD - 05/14/2020 12:00 AM CST HISTORY OF PRESENT ILLNESS: Mrs. Morrow is seen in the [facility] today in consultation. She is a 70-year-old woman who was referred to the cardiology clinic by Dr. Pat for establishment of cardiovascular care after apparently suffering a NSTEMI requiring subsequent PCI. A review of the records shows that Mrs. Morrow presented to [facility] on 12/26[facility] with complaints of chest pain. A Lexiscan showed evidence of any inferior ischemia and subsequent cardiac catheterization revealed a large dominant right coronary artery with 95% stenosis in the mid portion. A complex stenting procedure was accomplished with stenting in both the right coronary artery and its posterolateral branch using 3 separate stents. The stents were reported to have been a Biotronik. Mrs. Morrow had felt as though her symptoms were initially related to GERD. Since that time, Mrs. Morrow has done well. She denies any anginal chest pain or shortness of breath. She has had no overt symptoms of congestive heart failure such as paroxysmal nocturnal dyspnea,orthopnea, or pedal edema. She denies any palpitations, syncope, or near syncope. She has had no claudication or recent symptoms to suggest TIA or CVA. Mrs. Morrow does have a history of rheumatoid arthritis. She also describes nocturnal snoring, butno witnessed apnea. She has undergone a sleep study in the past which was apparently thought to be negative by her accounts. Mrs. Morrow does have a history of tobacco abuse, but quit in November of last year at the time of her myocardial infarction. She has a history of diabetes mellitus, which is being treated without Insulin. A review of the available records show that a lipid panel was performed earlier this month and showed a total serum cholesterol of 120 with an LDL cholesterol fraction of 52 and a total cholesterol to HDL cholesterol ratio of 2.6. Serum triglycerides were 120 with a serum ALT of 13. A glycosylated hemoglobin was 5.9%. RECOMMENDATIONS AND PLAN: Mrs. Morrow suffers from coronary artery disease and is status post recent NSTEMI requiring stenting of her right coronary artery. She is clinically stable at the present time without ongoing anginal chest pain, overt symptoms of congestive heart failure, or clinical evidence of hemodynamically significant arrhythmias. Continued medical therapy and aggressive cardiac risk factor modification seem most appropriate at the present time. After a long discussion in the clinic, I have recommended the following to Mrs. Morrow: 1. Aggressive attempts at weight loss and participation in a regular exercise program. 2. Close monitoring of Mrs. Lloyds blood pressure seems appropriate. A reasonable goal would be to attain a blood pressure of 130/80 mmHg or less per guidelines. 3. Annual followup in the cardiology clinic. Plans will be made for Mrs. Morrow to return to the cardiology clinic in December of 2020. I have encouraged her to contact me in the meantime should she have any questions or problems. ADDENDUM: I will be reviewing Mrs. Morrow's outside records more closely once they become available. ICAL SCIENCE PROFESSOR documented in this encounter Plan of Treatment Upcoming Encounters Date Type Department Care Team (Late st Contact Info) Description 07/08/2024 2:45 PM CDT Office Visit [facility] [place] [address] La Metz MD [address] [place] [address] documented as of this encounter Visit Diagnoses Diagnosis NSTEMI (non-ST elevated myocardial infarction) ([facility])- Primary Acute myocardial infarction, subendocardial infarction, episode of care unspecified Coronary artery disease involving rosebud coronary artery of rosebud heart without angina pectoris S/P coronary artery stent placement Postsurgical percutaneous transluminal coronary angioplasty status Essential hypertension Unspecified essential hypertension Other hyperlipidemia documented in this encounter Care Teams Technical Sales Consultant Relationship Specialty Start Date End Date Sukhjinder Pat MD [address] [place] [phone] PCP - General INTERNAL MEDICINE 02/26/20 Ace Carlson MD [address] [place] [address] [place] Family Therapist CARDIOVASCULAR DISEASE 02/26/20 11/04/23 documented as of this encounter
--- OUTSIDE RECORDS SUMMARY | 2024-04-19 04:40 | XMS_ITS | Encounter Summary ---
Author Organization [facility] Address [address] [place] [address]. [place] [address] [place] [address] Care Team Providers Care Chalk Machine Operator Name Role Phone Keesha Goss MD Primary Care Provider [phone] Ace Carlson MD Unavailable Unavailabl e Reason for Visit * Reason Onset Date Comments Appointment Request 04/27/2021 annual f/u a ppt Encounter Details Date Type Department Care Team (Late st Contact Info) Description 04/27/2021 Telephone [facility] [place] [address] Ace Carlson MD Appointment Request (annual f/u appt) Social History Tobacco Use Types Packs/Day Years Used Date Smoking Tobacco: Former Cigarettes Q uit: 11/2019 Smokeless Tobacco: Never Comments Unknown Sex and Gender Information Value Date Recorded Sex Assigned at Not on file Legal Sex Female 10:13 AM CDT Gender Identity Not on file Sexual Orientation Not on file documented as of this encounter Progress Notes * Tiffany Macias - 04/27/2021 9:58 AM CST REFERRAL/PCP: Keesha Goss MD REASON FOR APPT: annual f/u appt INS: [employer] APPT PROV/DATE/TIME: 06/23/2021 @ 8am (Echo) TESTING NEEDED/SCHEDULED: none STAFF MSG SENT: no COVID+TEST/EXPOSURE IN LAST 14 DAYS: n/a RECORDS NEEDED: none MYCHART OFFERED: yes LETTER SENT: yes, requested CARE TEAM: notified Patient expresses understanding and has no questions. STOS WORKER documented in this encounter Plan of Treatment Upcoming Encounters Date Type Department Care Team (Late st Contact Info) Description 07/08/2024 2:45 PM CDT Office Visit [facility] [place] [address] La Metz MD [address] [place] [address] documented as of this encounter Visit Diagnoses Not on filedocumented in this encounter Care Teams Chalk Machine Operator Relationship Specialty Start Date End Date Keesha Goss MD [address] [place] [phone] PCP - General INTERNAL MEDICINE 02/26/20 Ace Carlson MD [address] [place] [address] [place] Textile Machine Operator CARDIOVASCULAR DISEASE 02/26/20 11/04/23 documented as of this encounter
--- OUTSIDE RECORDS SUMMARY | 2024-04-19 04:40 | XMS_ITS | Encounter Summary ---
Author Organization [facility] Address [address] [place] [address]. [place] [address] [place] [address] Care Team Providers Care Clerical Support Name Role Phone Keesha Goss MD Primary Care Provider [phone] Ace Carlson MD Unavailable Unavailabl e Encounter Details Date Type Department Care Team (Late st Contact Info) Description 06/18/2020 Abstract [facility] [address] [place] [phone] Abstract, Doc [facility] Social History Tobacco Use [...] Description 07/08/2024 2:45 PM CDT Office Visit [facility] [place] [address] La Metz MD [address] [place], [place] [phone] documented as of this encounter Procedures Procedure Name Priority Date/Time Associated Diagnosis Comments CMP (ABSTRACTED LAB) Routine 05/11/2020 HEMOGLOBIN, GLYCOSYLATED Routine 05/11/2020 LIPID PANEL Routine 05/11/2020 CBC, AUTO, NO DIFF Routine 05/11/2020 documented in this encounter Results * CBC, AUTO, NO DIFF (05/11/2020) Pathologist [facility] WBC 8.1 RBC 4.73 HGB 14.7 HCT 45.3 MCV 95.8 MCH 31.1 MCHC 32.5 RDW 13.3 PLT 228 MPV 12.4 05/11/2020 us Doc [facility] Abstract LABORATORY Final Result * HEMOGLOBIN, GLYCOSYLATED (05/11/2020) Pathologist [facility] HGB A1C 5.9 % 05/11/2020 us Doc [facility] Abstract LABORATORY Final Result * (ABNORMAL) CMP (ABSTRACTED LAB) (05/11/2020) Pathologist [facility] SODIUM S/P/B 141 POTASSIUM S/P/B 4.5 CHLORIDE S/P/B 105 CO2 27 BUN 19 CREATININE S/P/B 1.08(A) 0.5 - 1.0 EGFR AFR. AMER. 60 <=90 EGFR NON-AFR. AMER. 52 <=90 CALCIUM S/P/B 9.4 GLUCOSE 93 mg/dL TOTAL PROTEIN S/P/B 6.1 ALBUMIN S/P/B 4.2 3.5 - 5.0 AST 16 ALT 13 ALKALINE PHOSPHATASE S/P/B 74 BILIRUBIN TOTAL S/P/B 0.4 05/11/2020 us Doc [facility] Abstract LAB-OUTSIDE/ABSTRACTED Final Result * LIPID PANEL (05/11/2020) Pathologist [facility] CHOLESTEROL 120 HDL 47 TRIGLYCERIDES 120 NON HDL CHOLESTEROL 73 CHOL/HDL RATIO 2.6 LDL (CALCULATED) 52 05/11/2020 us Doc [facility] Abstract LABORATORY Final Result documented in this encounter Visit Diagnoses Not on filedocumented in this encounter Care Teams Clerical Support Relationship Specialty Start Date End Date Keesha Goss MD [address] [place] [phone] PCP - General INTERNAL MEDICINE 02/26/20 Ace Carlson MD [address] [place] [address] [place] Office Clinician CARDIOVASCULAR DISEASE 02/26/20 11/04/23 documented as of this encounter
--- OUTSIDE RECORDS SUMMARY | 2024-04-19 04:40 | XMS_ITS | Encounter Summary ---
Author Organization [facility] Address [address] [place] [address]. [place] [address] [place] [address] Care Team Providers Care Precipitator Name Role Phone Keesha Goss MD Primary Care Provider [phone] Ace Carlson MD Unavailable Unavailabl e Encounter Details Date Type Department Care Team (Latest Contact Info) Description 05/12/2020 Travel Social History Tobacco Use Types Packs/Day [...] COVID-19? Unable to assess 05/12/2020 11:01 AM SWEATBAND SHAPER documented as of this encounter Plan of Treatment Upcoming Encounters Date Type Department Care Team (Late st Contact Info) Description 07/08/2024 2:45 PM CDT Office Visit [facility] [place] [phone] La Metz MD [address] [place] [address] documented as of this encounter Visit Diagnoses Not on filedocumented in this encounter Care Teams Precipitator Relationship Specialty Start Date End Date Keesha Goss MD [address] [place] [address] PCP - General INTERNAL MEDICINE 02/26/20 Ace Carlson MD [address] [place] [address] [place] Air Analyst CARDIOVASCULAR DISEASE 02/26/20 11/04/23 documented as of this encounter
--- OUTSIDE RECORDS SUMMARY | 2024-04-19 04:41 | XMS_ITS | Clinical Summary ---
Author Organization [facility] [address] Address [address] [place] [address] Care Team Providers Care Waxer Floor Name Role Phone Keesha Goss MD Primary Care Provider [phone] Allergies Active Allergy Reactions Criticality Noted Date Comments Sulfa (Sulfonamide Antibiotics) Rash Medium 12/30 Medications hydrOXYchloroQUI NE (Plaquenil) 200 mg tablet Take 200 mg by mouth every 12 hours Active pioglitazone (ACTOS) 15 mg tablet Take 7.5 mg by mouth daily 11/14/2019 Active losartan-hydroCH LOROthiazide (HYZAAR) 50-12.5 mg per tablet Take 1 tablet by mouth 2 (two) times a day 11/15/[address] (PROTONIX) 40 mg EC tablet Take 40 mg by mouth 2 (two) times a day 12/25/2019 Active methotrexate 2.5 mg tablet Take 2.5 mg by mouth 4 (four) times a week 11/15/2019 Active rosuvastatin (CRESTOR) 20 mg tablet Take 10 mg by mouth daily 12/28/2019 Active SUMAtriptan (IMITREX) 50 mg tablet Take 50 mg by mouth daily as needed 11/15/2019 Active aspirin 81 mg enteric coated tablet Take 81 mg by mouth daily Active multivitamin capsule Take 1 capsule by mouth daily Active isosorbide mononitrate ER (IMDUR) 30 mg 24 hr tabletIndication s:prevention of anginal pain in coronary artery disease Take 1 tablet (30 mg total) by mouth daily 90 tablet 3 01/13/2020 Active Brilinta 90 mg tabletIndication s:Presence of stent in coronary artery Take 1 tablet (90 mg total) by mouth 2 (two) times a day 180 tablet 3 01/13/2020 Active metoprolol tartrate (LOPRESSOR) 25 mg immediate release tabletIndication s:Coronary artery disease involving [place] coronary artery of [place] heart without angina pectoris Take 1 tablet (25 mg total) by mouth 2 (two) times a day 180 tablet 3 01/13/2020 Active Active Problems No known active problems Surgical History Surgery Date Site/Laterality Comments HYSTERECTOMY COLON SURGERY CARDIAC STENT PLACEMENT Medical History Medical History Date Comments Hypertension Diabetes mellitus (HCC) Acid indigestion Coronary artery disease Rheumatoid arthritis (HCC) Family History * Patient is adopted Medical History Relation Name Comments Diabetes Brother Heart disease Brother Hypertension Brother glioblastoma Son Relation Name Status Comments Brother Alive Son Social History Tobacco Use Types Packs/Day Years Used Date Smoking Tobacco: Former Cigarettes Q uit: 10/30/2019 Smokeless Tobacco: Never Alcohol Use Standard Drinks/Week Comments Not Currently 0 (1 standard drink = 0.6 oz pur e alcohol) Personal Safety Answer Date Recorded Getting School Help Needed Not on file 07/15 Comments Unknown Sex and Gender Information Value Date Recorded Sex Assigned at Not on file Legal Sex Female 10:45 AM CDT Gender Identity Not on file Sexual Orientation Not on file Obstetrics History Last Filed Vital Signs Vital Sign Reading Time Taken Comments Blood Pressure 112/62 01/13/2020 1:54 PM CDT Pulse 76 01/13/2020 1:54 PM CDT Temperature - - Respiratory Rate - - Oxygen Saturation 96% 01/13/2020 1:54 PM CDT Inhaled Oxygen Concentration - - Weight 98 kg (216 lb) 01/13/2020 1:54 PM CDT Height 154.9 cm (5' 1 ) 01/13/2020 1:54 PM CDT Body Mass Index 40.81 01/13/2020 1:54 PM CDT Plan of Treatment Not on file Insurance [employer] OFF[employer] Care Teams Waxer Floor Relationship Specialty Start Date End Date Keesha Goss MD [address] [place] [address] PCP - General Internal Medicine 12/26/19
--- OUTSIDE RECORDS SUMMARY | 2024-04-19 04:41 | XMS_ITS | Encounter Summary ---
Author Organization [facility] Address [address] [place] [address] Care Team Providers Care Magnetic Locater Name Role Phone Keesha Goss MD Primary Care Provider [phone] Encounter Details Date Type Department Care Team (Late st Contact Info) Description 12/28/2019 Orders Only [facility] Cardiology [address] [facility] [address] [facility] [address] [place] [address] Tamera Mendez MD [address] [facility] [address] [place] [address] Social History Tobacco Use Types Packs/Day Years Used Date Smoking Tobacco: Never Assessed Comments Unknown Sex and Gender Information Value Date Recorded Sex Assigned at Not on file Legal Sex Female 10:45 AM CDT Gender Identity Not on file Sexual Orientation Not on file documented as of this encounter Plan of Treatment Not on file documented as of this encounter Procedures Procedure Name Priority Date/Time Associated Diagnosis Comments CARDIOLOGY DOCUMENT SCAN Routine 12/28/2019 documented in this encounter Results * SCAN - CARDIOLOGY (12/28/2019) Anatomical Region Laterality Modality Other Tamera Mendez MD CV CARDIAC SERVICES PROCEDU RES Final Result documented in this encounter Visit Diagnoses Not on filedocumented in this encounter Care Teams Magnetic Locater Relationship Specialty Start Date End Date Keesha Goss MD [address] [place] [address] PCP - General Internal Medicine 12/26/19 documented as of this encounter
--- OUTSIDE RECORDS SUMMARY | 2024-04-19 04:41 | XMS_ITS | Encounter Summary ---
Author Organization [facility] Address [address] [place] [address] Care Team Providers Care Customer Solutions Specialist Name Role Phone Keesha Goss MD Primary Care Provider [phone] Encounter Details Date Type Department Care Team (Late st Contact Info) Description 12/26/2019 Orders Only [facility] Cardiology [address] [facility] [address] [facility] [address] [place] [address] Tamera Mendez MD [address] [facility] [address] [place] [address] Social History Tobacco Use Types [...] Associated Diagnosis Comments CARDIOLOGY DOCUMENT SCAN Routine 12/26/2019 documented in this encounter Results * SCAN - CARDIOLOGY (12/26/2019) Anatomical Region Laterality Modality Other Tamera Mendez MD CV CARDIAC SERVICES PROCEDU RES Final Result documented in this encounter Visit Diagnoses Not on filedocumented in this encounter Care Teams Customer Solutions Specialist Relationship Specialty Start Date End Date Keesha Goss MD [address] [place] [address] PCP - General Internal Medicine 12/26/19 documented as of this encounter
--- OUTSIDE RECORDS SUMMARY | 2024-04-19 04:41 | XMS_ITS | Encounter Summary ---
Author Organization [facility] Address [address] [address] [place] [address] Care Team Providers Care Board Hammer Operator Name Role Phone Keesha Goss MD Primary Care Provider [phone] Encounter Details Date Type Department Care Team (Late st Contact Info) Description 12/27/2019 Orders Only [facility] Cardiology [address] [place] [address] Rubin Muñoz MD [address] [facility] [address] [place] [address] Social History Tobacco Use Types [...] Associated Diagnosis Comments CARDIOLOGY DOCUMENT SCAN Routine 12/27/2019 documented in this encounter Results * SCAN - CARDIOLOGY (12/27/2019) Anatomical Region Laterality Modality Other us Rubin Muñoz MD CV CARDIAC SERVICES PROC EDURES Final Result documented in this encounter Visit Diagnoses Not on filedocumented in this encounter Care Teams Board Hammer Operator Relationship Specialty Start Date End Date Keesha Goss MD [address] [place] [address] PCP - General Internal Medicine 12/26/19 documented as of this encounter
--- OUTSIDE RECORDS SUMMARY | 2024-04-19 04:41 | XMS_ITS | Data Portability ---
Author Organization [facility], [address] [facility] Neurology ([place]) Address [address] [place] [address] Care Team Providers Care Orthopaedic General Name Role Phone SUKHJINDER PAT Primary Care Provider [phone] Assessment Encounter Date Assessment Date Assessment LastModified by Organization Details LastModified Time 09/07/2023 09/07/2023 IMPRESSION: 1. Psoriasiform rash. 2. Seropositive RA versus psoriatic arthritis. 3. Osteoarthritis. 4. Mechanical lower back pain ? management per Pain Management. 5. High risk medication use. nv PLAN: 1. Discontinue hydroxychloroqui ne. 2. Leflunomide 10 mg orally daily. I did discuss with the patient today the indications, risks, benefits and potential side effects of this oral DMARD agent. We also discussed biologic options and other oral DMARDs, including azathioprine and CellCept therapy versus JERAMY inhibitor therapy. She cannot take sulfa drugs, like sulfasalazine, because of allergies. 3. DMARD labs in 4 weeks, then again in 8 weeks. 4. Avoid oral NSAIDs indefinitely. 5. Hydrate well with 80 ounces of water intake daily. 6. May use acetaminophen up to 1 g p.o. t.i.d. p.r.n. for analgesic relief. 7. Counseled the patient today about the importance of smoking cessation. 8. Followup visit in 3-4 months for recheck. henry Not available 09/09/2023 13:04:50 01/11/2024 01/11/2024 IMPRESSION: 1. Seropositive RA. 2. Osteoarthritis. 3. Mechanical lower back pain. 4. Chronic kidney disease stage 3. PLAN: 1. DMARD labs now as ordered. Advised the patient today to avoid meloxicam and all oral NSAIDs. 2. May use acetaminophen up to 1 g p.o. t.i.d. p.r.n. for analgesic relief. 3. Continue current leflunomide therapy. 4. Hydrate well with consumption of 80 ounces of water daily. 5. Followup visit in 6 months, though she will have DMARD labs again 4 months. aleisha Not available 01/12/2024 13:08:05 Plan of Treatment Reminders Order Date Submit Date Provider Last Modified By Organization Details Last Modified Time Details Appointments Establish ed Patient 15.EST 2024 11:00A M Dr. James Muro Not available Not available Not available Lab None recorded. Referral None recorded. Procedures None recorded. Surgeries None recorded. Imaging None recorded. Medication Orders None recorded. Patient TargetsNo targets recorded. Patient InstructionsNo instructions recorded. Reason for Referral None Reported. Results Created Date Observation Date Name Description Value Unit Range Abnormal Flag Note LastModifiedBy Organization Detail LastModifiedTime 12/15/19 24 05/09/2022 imagi ng/di agnos tic resul t No observ ation record ed. Not Available 12/15/2023 03:19:37 12/15/19 24 08/03/2022 imagi ng/di agnos tic resul t No observ ation record ed. Not Available 12/15/2023 03:19:50 Result Notes None recorded. Problems Name Problem SNOMED Code Status Onset Date Resolution Date Notes Provider Name and Address Organization Details Recorded Time Rheumatoid arthritis 62472964 [facility] Mechanical low back pain 384870712 Active 2023 Anais Montgomery [facility] 4 12:39:01 Osteoarthritis 498930228 Active 2023 Anais Montgomery [facility] 4 12:39:36 Diabetes mellitus 69823378 Active 2023 Anais Montgomery [facility] 4 12:39:47 Psoriasis plantaris 777610851 Active 2023 James Muro MD [address] [place] [address], [address] [place] [address] 13:38:48 Problem Notes None recorded. Procedures Surgical History None recorded. Imaging Results Imaging Date Name Status LastModified by Organiz ation Details LastModified Time 05/09/2022 imaging/diag nostic result completed Information not available 12/15/2023 03:19:37 08/03/2022 imaging/diag nostic result completed Information not available 12/15/2023 03:19:50 Procedure Notes None recorded. Medical Equipment None Reported. Allergies Allergen ID Allergen Name Allergen Category Reaction Reaction Severity Criticality Documentation Date Start Date Code Code System Note Provider Name and Address Organization Details Recorded Time [id number] 543912913 1043329r2 2824e Augmentin medicatio n Not available Not available Not available 05/31/20232021 53202 2 RxNorm Not Available Not Available Not Available [id number] 3918095f9 2824e Substance with sulfonami de structure and antibacte rial mechanism of action (substanc e) medicatio n Not available Not available Not available 05/31/20232021 03179 8003 SNOMED Not Available Not Available Not Available [id number] 948900657 5955430g6 2824e Zosyn medicatio n Not available Not available Not available 05/31/20232021 77152 RxNorm Not Available Not Available Not Available 4370xi503 [id number] 7f818 isosorbid e medicatio n headache Not available Not available 05/31/20232021 6057 RxNorm React ion: Heada [place]; Not Available Not Available Not Available [id number] 7755rr7ee [id number] c5399 Crestor medicatio n myalgias (muscle pain) Not available Not available 05/29/20232021 70168 4 RxNorm React ion: Other : body aches ; Comme nt: Annot ation s: CORY TOBIAS 2021 1:25P M body aches ; ; Not Available Not Available Not Available Medications Name Sig Start Date Stop Date Status Note LastModified by Organization Details LastModified Time pioglitazo ne 15 mg tablet TAKE 1/2 TABLET DAILY 01/10 completed Not Available Not Available Not Available prednisone 10 mg tablet PRN 01/10 completed Not Available Not Available Not Available tizanidine 2 mg tablet 09/06 completed Not Available Not Available Not Available azithromyc in 250 mg tablet active Not Available Not Available Not Available meloxicam 15 mg tablet TAKE 1/2 TABLET DAILY active Not Available Not Available No t Available sucralfate 1 gram tablet TAKE 1 TABLET 4 TIMES DAILY active Not Available Not Available No t Available prednisone 20 mg tablet 01/10 completed Not Available Not Available Not Available leflunomid e 10 mg tablet Take 1 tablet every day by oral route for 90 days. active Not Available Not Available No t Available clopidogre l 75 mg tablet 09/06 completed Not Available Not Available Not Available tramadol 50 mg tablet PRN active Not Available Not Available Not Available triamcinol one acetonide 0.1 % topical cream active Not Available Not Available Not Available methotrexa te sodium 2.5 mg tablet 09/04 completed Not Available Not Available Not Available pantoprazo le 40 mg tablet,del ayed release TAKE 1 TABLET TWICE DAILY active Not Available Not Available No t Available indapamide 1.25 mg tablet TAKE 1 TABLET DAILY active Not Available Not Available No t Available flurbiprof en 100 mg tablet 09/06 completed Not Available Not Available Not Available azelastine 137 mcg (0.1 %) nasal spray PRN active Not Available Not Available Not Available hydroxychl oroquine 200 mg tablet Take 1 tablet every day by oral route. 09/06 completed stopped at time of exam Not Available Not Available Not Available cefuroxime axetil 500 mg tablet 09/06 completed Not Available Not Available Not Available ipratropiu m bromide 42 mcg (0.06 %) nasal spray PRN active Not Available Not Available Not Available losartan 100 mg tablet TAKE 1 TABLET DAILY active Not Available Not Available No t Available rosuvastat in 5 mg tablet TAKE 1 TABLET DAILY 01/10 completed Not Available Not Available Not Available metoprolol tartrate 25 mg tablet TAKE 1 TABLET TWICE DAILY active Not Available Not Available No t Available losartan 100 mg-hydroch lorothiazi de 12.5 mg tablet 09/04 completed Not Available Not Available Not Available True Metrix Glucose Test Strip active Not Available Not Available N ot Available Repatha SureClick 140 mg/mL subcutaneo us pen injector active Not Available Not Available Not Available Vitals Date Recorded Body height Body mass index (BMI) Body weight Heart rate Oxygen saturation Oxygen saturation in Arterial blood by Pulse oximetry Systolic blood pressure Diastolic blood pressure Provider Name and Address Organization Details Last Updated DateTime 4 157.48 cm 41.3 kg/m2 149254. 88 g 58 /min 95 % 95 % 126 mm[Hg] 72 mm[Hg] Anais Montgomery [facility] 4 13:08:25 Date Recorded Body height Body mass index (BMI) Body weight Heart rate Oxygen saturation Oxygen saturation in Arterial blood by Pulse oximetry Systolic blood pressure Diastolic blood pressure Provider Name and Address Organization Details Last Updated DateTime 4 157.48 cm 41.2 kg/m2 191777. 08 g 60 /min 95 % 95 % 134 mm[Hg] 76 mm[Hg] Aura Casillas [facility] 4 12:17:06 Social History Question Answer Notes LastModified by Organizat ion Details LastModified Time Tobacco Smoking Status Current Every Day Smoker Aura Fryman [facility] 01/11/2024 12:18:55 How Many Packs Per Day (PPD)? 1-2 Ciggaretts [email or web address] Information not available 01/11/2024 Sex: Unknown Functional Status None recorded. Mental Status None recorded. Family History Nothing Reported. Medical History No medical history recorded. Gynecological HistoryNo gynecological history recorded. Obstetrics History GPAL:G 0 P 0 0 0 0 Past Encounters Encounter ID Performer Location Encounter Start Date Encounter Closed Date Diagnosis/Indication Diagnosis SNOMED-CT Code Diagnosis ICD10 Code [id number] James Muro MD [facility] [place]gy ([place]) [address] [place] [address] 09/07/2023 11:35:42 09/15/2023 14:20:28 Psoriasis plantaris 099314885 L40.3 Osteoarthritis 503420914 M19.90 Mechanical low back pain 591519806 M54.50 Seropositi ve rheumatoid arthritis of multiple joints 5455633722 8943203 M05.89 Long-term drug therapy 554822892 Z79.899 Chronic ki dney disease 375752703 N18.9 Continuous dependence on cigarette smoking 2149857881 77986 F17.561 [id number] James Muro MD [facility] Rheumat[place]gy ([place]) [address] [place] [address] 01/11/2024 11:27:00 01/15/2024 04:29:48 Psoriasis plantaris 955443629 L40.3 Osteoarthritis 883161986 M19.90 Mechanical low back pain 906157762 M54.50 Rheumatoid arthritis of multiple joints 267031699 M05.89 Long-term current use of drug therapy 354485015 Z79.899 Health Concerns Section Related Observation LastModified by Organization Detai ls LastModified Time None Recorded Concern Status LastModified by Organization Details LastModified Time None Recorded Advance Directives Directive None Recorded Payers Encounter Date Sequence Insurance Name Policy Number Policy Garcia Covered Member ID Garcia Member ID Guarantor Name 09/07/2023 1 [employer] (PPO) Carlotta Morrow [id number] Carlotta Morrow 01/11/2024 1 [employer] (MEDICARE REPLACEMENT/ ADVANTAGE - PPO) [id number] Carlotta Morrow [id number] Carlotta Morrow Notes Date Note Type Note Provider Name and Address Organization Details Recorded Time 09/07/2023 text/html The patient is a 73-year-old female with osteoarthritis, chronic mechanical back pain and seropositive RA, who is here today for a followup visit.She continues on low dose hydroxychloroquine therapy, but is currently off of her meloxicam. Her primary care physician had prescribed it, but she has issues with chronic kidney disease and had to stop the medication.Her September 05, 2023, labs are reviewed with her today. The CBC remains stable while the serum creatinine has increased to 1.25, with an estimated GFR of 45 cc/minute per 1.73 m2.The patient reports she has been taking some low dose prednisone for the past few weeks. She rates her pain a 4/10 on a scale, mainly affecting the hands, wrists, and lower back. Her morning stiffness is lasting 1 hour in duration. She has been seeing Pain Management at [place] and had an epidural steroid injection on Monday. She reports her lower back does feel somewhat better after the injection. She has had no loss of bowel or bladder control or saddle anesthesia. She denies any fever or chills. No unexplained weight loss. She has noticed the development of a scaly patchy rash on her left foot.She did see her primary care physician, who prescribed triamcinolone cream that she is currently using twice daily. She reports the rash still is persisting. She has had no aphthous ulcers, inflammatory eye symptoms, neck swelling or lymph node swelling. She smokes 1-2 cigarettes a day and has a chronic smoker? s cough. No shortness of breath, chest pain or palpitations or syncopal episodes. She denies any gross reflux symptoms, melena, hematochezia, diarrhea or constipation. Her appetite is normal. She has had no dysuria or bleeding from the nares or gums. She does attend Plaquenil screening eye exams once yearly. There have been no issues with Plaquenil retinopathy. Of note, she has previously failed methotrexate therapy in addition to her hydroxychloroquine.henry Muro MD [facility] [address], [address], [facility] 09/15/2023 09:25:29 01/11/2024 text/html The patient is a 73-year-old female with seropositive RA, psoriasis, osteoarthritis, and chronic mechanical back pain, who is here today for a followup visit. She continues on leflunomide therapy since August of this year and reports overall doing quite well. She has managed to get off prednisone and currently has weaned her meloxicam down to 7.5 mg daily in light of her chronic kidney disease. I have advised her in the past to get off this medication, but she reports if she does not take the medication, her stiffness is quite intense. She tolerates the lower dose. She was actually having dyspepsia with the higher dose of meloxicam. Today she states, again, overall she is doing quite well. She has had no major flares of her rheumatoid arthritis. She keeps moving and this helps keep her stiffness down to 30 minutes in the morning. Her pain score today is a 0/10 on a scale. She does manage to complete all of her own ADLs without the use of an assistive device. She tries to work out daily with some basic stretching and low impact aerobic exercise. On further review of systems, she has had no fever, chills, skin rash, Raynaud? s symptoms, aphthous ulcers, cough, pleurisy, shortness of breath, chest pain or palpitations. No melena or hematochezia, loss of appetite or early satiety, dysuria or gross hematuria or bleeding from the nares or gums. I did review with her today her labs from September 04, 2023, demonstrating a serum creatinine of 1.25 with an estimated GFR of 45 cc/minute per 1.73 m2. Her acute phase reactants are normal as is her CBC and LFTs.aleisha Muro MD [address] [place] [address], [phone], [facility] 01/19/2024 09:22:18 OBGyn Episode No OBEpisode recorded.
--- OUTSIDE RECORDS SUMMARY | 2024-04-19 04:41 | XMS_ITS | Encounter Summary ---
Author Organization [facility] Address [address] [facility] [address] [place] [address] Care Team Providers Care Concierge Name Role Phone Keesha Goss MD Primary Care Provider [phone] Encounter Details Date Type Department Care Team (Late st Contact Info) Description 12/26/2019 Orders Only [facility] Cardiology [address] [facility] [address] [place] [address] Romero Robles MD [address] [id number] Social History Tobacco Use Types Packs/Day Years [...] CARDIOLOGY (12/26/2019) Anatomical Region Laterality Modality Other us Romero Robles MD CV CARDIAC SERVICES PROCEDURES Final Result documented in this encounter Visit Diagnoses Not on filedocumented in this encounter Care Teams Concierge Relationship Specialty Start Date End Date Keesha Goss MD [address] [place] [address] PCP - General Internal Medicine 12/26/19 documented as of this encounter
--- OUTSIDE RECORDS SUMMARY | 2024-04-19 04:41 | XMS_ITS | Encounter Summary ---
Author Organization [facility] Address [address] [facility] [address] [address] Care Team Providers Care Directional Driller Name Role Phone Keesha Goss MD Primary Care Provider [phone] Encounter Details Date Type Department Care Team (Late st Contact Info) Description 12/26/2019 Orders Only [facility] Cardiology [address] [facility] 162 [facility] [address] [place] [address] Tamera Mendez MD [address] [facility] [address] [place] [address] Social History Tobacco Use Types [...] on filedocumented in this encounter Care Teams Directional Driller Relationship Specialty Start Date End Date Keesha Goss MD [address] [place] [address] PCP - General Internal Medicine 12/26/19 documented as of this encounter
--- OUTSIDE RECORDS SUMMARY | 2024-04-19 04:41 | XMS_ITS | Encounter Summary ---
Author Organization [facility] Address [address] [facility] [address] [place] [address] Care Team Providers Care Electrical Controls Technician Name Role Phone Keesha Goss MD Primary Care Provider [phone] Reason for Visit * Reason Comments Hospital Follow Up NSTEMI, PHOEBE to RCA x 2 * Consultation (Routine) - Closed Specialty Diagnoses / Procedures Referred By Contac t Referred To Contact Cardiology Diagnoses NSTEMI (non-ST elevated myocardial infarction) (CMS/HCC) (HCC) Keesha Goss MD [address] [place] [address] Phone: tel: fax: [facility] [address] [address] Phone: tel: fax: Referral ID Status Reason Start Date Expiration Date V isits Requested Visits Authorized [id number] Closed Specialty Services Required 01/08/2020 07/07/2020 30 30 Encounter Details Date Type Department Care Team (Late st Contact Info) Description 01/13/2020 2:00 PM CDT Office Visit [facility] [address] [address] Miri Young NP [address] [facility] [address] [place], [place] [id number] History of non-ST elevation myocardial infarction (NSTEMI) (Primary Dx); Presence of stent in coronary artery; Coronary artery disease involving [place] coronary artery of [place] heart without angina pectoris; Myalgia due to statin; Exercise counseling; Hospital discharge follow-up; NSTEMI (non-ST elevated myocardial infarction) ([facility]) Social History Tobacco Use Types Packs/Day Years Used Date Smoking Tobacco: Former Cigarettes Q uit: 10/30/2019 Smokeless Tobacco: Never Alcohol Use Standard Drinks/Week Comments Not Currently 0 (1 standard drink = 0.6 oz pur e alcohol) Comments Unknown Sex and Gender Information Value [...] Mass Index 40.81 01/13/2020 1:54 PM CDT documented in this encounter Ordered Prescriptions Prescription Sig Dispense Quantity Refills Last Filled Start Date End Date metoprolol tartrate (LOPRESSOR) 25 mg immediate release tabletIndications:C oronary artery disease involving [place] coronary artery of [place] heart without angina pectoris Take 1 tablet (25 mg total) by mouth 2 (two) times a day 180 tablet 3 01/13/2020 Brilinta 90 mg tabletIndications:P resence of stent in coronary artery Take 1 tablet (90 mg total) by mouth 2 (two) times a day 180 tablet 3 01/13/2020 isosorbide mononitrate ER (IMDUR) 30 mg 24 hr tabletIndications:p revention of anginal pain in coronary artery disease Take 1 tablet (30 mg total) by mouth daily 90 tablet 3 01/13/2020 documented in this encounter Progress Notes * Miri Young NP - 01/13/2020 2:00 PM CDT Images from the original note were not included. [facility] [address] [place] [address] Date of Visit: 01/13/2020 Patient ID: Carlotta Morrow 1950 Chief Complaint: Carlotta Morrow is a 69 y.o. female comes to the office for hospital follow-up appointment after she had a NSTEMI and PCI. History of Present Illness: Carlotta Morrow is a 69 y.o. female with a past medical history of hypertension, obesity, diabetes, rheumatoid arthritis and GERD. Apparently she also had a bowel rupture in 2006 thought to be due to her RA, required resection. She presented to [facility] on 12/26/2019 with complaint of chest pain. Her description seemed rather atypical and was felt it could be more GI related. ECG was negative but troponin was mildly elevated, and because of her risk factors she had a Lexiscan. The Lexiscan showed inferior ischemia. The echo showed mild a pickle hypokinesis so she proceeded to have a cardiac catheterization by Dr. Muñoz. Coronary angiography showed a large dominant RCA with the 95% stenosis in the midportion. There was also a large RPL branch that had a 90% stenosis proximally.PCI was performed which was somewhat complex, but both the RCA and the RPL branch were stented. There was also mild disease seen in the LAD and the circumflex was very small with 1 marginal branch. She was started on Brilinta, aspirin, metoprolol tartrate, isosorbide, rosuvastatin and pantoprazole.She was continued on losartan/hydrochlorothiazide. Her lipid panel in the hospital on 12/27/2019 showed TC 171, HDL 43, TG 131, LDL 100. 01/13/2020 office visit with ANIMAL TRAINER: She is here for hospital follow-up. She reports feeling better. She has had no recurrence of the chest pain/epigastric pain. Her only complaint is intense muscle aches which occurred after discharge. She decided to stop the rosuvastatin to see if this would improve.Her last dose of rosuvastatin was 01/07/2020 and shortly thereafter, her symptoms resolved. She hasbeen walking 1 mile every morning. Records that I personally reviewed on the day of this visit include: (the interpretation is outlined in the HPI above) November 2019 [facility] inpatient records including the consultation note from Dr. Robles, progress note from Dr. Mendez, stress test report, cardiac catheterization report, discharge summary. I have also reviewed: allergies, current medications, past family history, past medical history, past social history, past surgical history and problem list Review of Systems Constitution: Negative for diaphoresis, fever, malaise/fatigue, weight gain and weight loss. HENT: Negative for hearing loss. Eyes: Negative for visual disturbance. Cardiovascular: Negative for chest pain, claudication, dyspnea on exertion, leg swelling, orthopnea, palpitations, paroxysmal nocturnal dyspnea and syncope. Respiratory: Negative for cough, hemoptysis, shortness of breath, snoring and wheezing. Hematologic/Lymphatic: Does not bruise/bleed easily. Skin: Negative for poor wound healing and rash. Musculoskeletal: Positive for back pain, joint pain and myalgias. Gastrointestinal: Negative for heartburn, nausea and vomiting. Genitourinary: Negative for hematuria. Neurological: Positive for dizziness and headaches. Negative for light-headedness. Psychiatric/Behavioral: Negative for depression. The patient is not nervous/anxious. Vital Signs: BP 112/62 (BP Location: Left arm, Patient Position: Sitting) Pulse 76 Ht 154.9 cm (5' 1 ) Wt 98 kg (216 lb) SpO2 96% BMI 40.81 kg/m?? Physical Exam Constitutional: She is oriented to person, place, and time. She appears well- developed and well-nourished. No distress. HENT: Head: Normocephalic and atraumatic. Wearing a mask Eyes: Pupils are equal, round, and reactive to light. Conjunctivae and EOM are normal. No scleral icterus. Neck: Normal range of motion. No JVD present. No tracheal deviation present. Cardiovascular: Normal rate, regular rhythm and normal heart sounds. No murmur heard. Right femoral artery puncture site closed, soft, nontender, no bruit. Resolving purple/yellow ecchymosis on right anterior and medial thigh Pulmonary/Chest: Effort normal and breath sounds normal. No respiratory distress. Abdominal: Soft. Bowel sounds are normal. There is no abdominal tenderness. Musculoskeletal: Normal range of motion. General: No edema. Neurological: She is alert and oriented to person, place, and time. Skin: Skin is warm and dry. Psychiatric: She has a normal mood and affect. Allergies Allergen Reactions ??? Sulfa (Sulfonamide Antibiotics) Rash Current Outpatient Medications: ??? aspirin 81 mg enteric coated tablet, Take 81 mg by mouth daily, Disp: , Rfl: ??? Brilinta 90 mg tablet, Take 1 tablet (90 mg total) by mouth 2 (two) times a day, Disp: 180 tablet, Rfl: 3 ??? hydrOXYchloroQUINE (Plaquenil) 200 mg tablet, Take 200 mg by mouth every 12 hours, Disp: , Rfl: ??? isosorbide mononitrate ER (IMDUR) 30 mg 24 hr tablet, Take 1 tablet (30 mg total) by mouth daily, Disp: 90 tablet, Rfl: 3 ??? losartan-hydroCHLOROthiazide (HYZAAR) 50-12.5 mg per tablet, Take 1 tablet by mouth 2 (two) times a day, Disp: , Rfl: ??? methotrexate 2.5 mg tablet, Take 2.5 mg by mouth 4 (four) times a week, Disp: , Rfl: ??? metoprolol tartrate (LOPRESSOR) 25 mg immediate release tablet, Take 1 tablet (25 mg total) by mouth 2 (two) times a day, Disp: 180 tablet, Rfl: 3 ??? multivitamin capsule, Take 1 capsule by mouth daily, Disp: , Rfl: ??? pantoprazole DR (PROTONIX) 40 mg EC tablet, Take 40 mg by mouth 2 (two) times a day, Disp: , Rfl: ??? pioglitazone (ACTOS) 15 mg tablet, Take 7.5 mg by mouth daily, Disp: , Rfl: ??? rosuvastatin (CRESTOR) 20 mg tablet, Take 10 mg by mouth daily , Disp: , Rfl: ??? SUMAtriptan (IMITREX) 50 mg tablet, Take 50 mg by mouth daily as needed, Disp: , Rfl: No results found for: POTASSIUM, BUNSER, CREATININE, CHOL, TRIG, LDL, LDLCALC, HDL Assessment: Diagnoses and all orders for this visit: History of non-ST elevation myocardial infarction (NSTEMI) (Primary) Presence of stent in coronary artery - Brilinta 90 mg tablet; Take 1 tablet (90 mg total) by mouth 2 (two) times a day Coronary artery disease involving [place] coronary artery of chick[place] heart without angina pectoris - isosorbide mononitrate ER (IMDUR) 30 mg 24 hr tablet; Take 1 tablet (30 mg total) by mouth daily - metoprolol tartrate (LOPRESSOR) 25 mg immediate release tablet; Take 1 tablet (25 mg total) by mouth 2 (two) times a day Myalgia due to statin Exercise counseling Hospital discharge follow-up Plan/Recommendations: She is s/p NSTEMI with a new diagnosis of coronary artery disease. PCI was performed on a high-grade lesion in the mid RCA and RPL branch. She has felt better since the PCI. I reviewed the importancecompliance with Brilinta. She will continue the rest of her medical therapy with aspirin, statin, beta-norma and ARB. We will also continue to follow her lipids as she has more time on statin therapy. She developed quite severe myalgias with rosuvastatin 20 mg daily. The myalgias resolved after stopping rosuvastatin. I asked her to restart the rosuvastatin at a lower dose of 10 mg daily by cuttingthe 20 mg tablet in half. She is willing to try this. If myalgias return, I told her to call the office, and I will prescribe rosuvastatin 5 mg daily to see if she can tolerate that. She agreed. I offered her referral to the cardiac rehab program but she is not interested. She prefers to continue her walking program at home. I advised her that her ultimate goal for exercises 30 minutes of aerobic exercise is many days a week as possible. Return to the office to see Dr. Robles in 3 months. Call us sooner with questions or concerns. SRINIVASAN Mendenhall- Nurse Practitioner with [facility] This note is dictated and transcribed using [employer] Direct Software. Damage Cutter variancesmay occur. Despite proofreading, typographical errors may occur. documented in this encounter Plan of Treatment Not on file documented as of this encounter Visit Diagnoses Diagnosis History of non-ST elevation myocardial infarction (NSTEMI)- Primary Presence of stent in coronary artery Coronary artery disease involving [place] coronary artery of [place] heart without angina pectoris Myalgia due to statin Exercise counseling Hospital discharge follow-up Other follow-up examination NSTEMI (non-ST elevated myocardial infarction) (CMS/HCC) (HCC) Acute myocardial infarction, subendocardial infarction, episode of care unspecified documented in this encounter Discontinued Medications Medication Sig Discontinue Reason Start Date End Da te metoprolol tartrate (LOPRESSOR) 25 mg immediate release tablet Take 25 mg by mouth 2 (two) times a day Reorder 12/28/2019 01/13/2020 Brilinta 90 mg tablet Take 90 mg by mouth 2 (two) times a day Reorder 12/28/2019 01/13/2020 isosorbide mononitrate ER (IMDUR) 30 mg 24 hr tablet Take 30 mg by mouth daily Reorder 12/28/2019 01/13/2020 documented as of this encounter Historical Medications * This list may reflect changes made after this encounter. multivitamin capsule Take 1 capsule by mouth daily aspirin 81 mg enteric coated tablet Take 81 mg by mouth daily SUMAtriptan (IMITREX) 50 mg tablet Take 50 mg by mouth daily as needed 11/15/2019 rosuvastatin (CRESTOR) 20 mg tablet Take 10 mg by mouth daily 12/28/2019 methotrexate 2.5 mg tablet Take 2.5 mg by mouth 4 (four) times a week 11/15/[address] (PROTONIX) 40 mg EC tablet Take 40 mg by mouth 2 (two) times a day 12/25/2019 losartan-hydroCHL OROthiazide (HYZAAR) 50-12.5 mg per tablet Take 1 tablet by mouth 2 (two) times a day 11/15/2019 pioglitazone (ACTOS) 15 mg tablet Take 7.5 mg by mouth daily 11/14/2019 hydrOXYchloroQUIN E (Plaquenil) 200 mg tablet Take 200 mg by mouth every 12 hours isosorbide mononitrate ER (IMDUR) 30 mg 24 hr tablet Take 30 mg by mouth daily 12/28/2019 01/13/2020 Brilinta 90 mg tablet Take 90 mg by mouth 2 (two) times a day 12/28/2019 01/13/2020 metoprolol tartrate (LOPRESSOR) 25 mg immediate release tablet Take 25 mg by mouth 2 (two) times a day 12/28/2019 01/13/2020 added in this encounter Orders Outpatient Referral Count Last Ordered Date Fir st Ordered Date AMB REFERRAL TO CARDIOLOGY 1 01/20/2020 documented in this encounter Care Teams Electrical Controls Technician Relationship Specialty Start Date End Date Keesha Goss MD [address] [place] [address] PCP - General Internal Medicine 12/26/19 documented as of this encounter
--- OUTSIDE RECORDS SUMMARY | 2024-04-19 04:41 | XMS_ITS | Referral Summary ---
Author Organization [facility] [address] Address [address] [place] [address] Care Team Providers Care Lock Expert Name Role Phone Keesha Goss MD Primary Care Provider [phone] Allergies Active Allergy Reactions Criticality Noted Date [...] immediate release tabletIndication s:Coronary artery disease involving [place] coronary artery of [place] heart without angina pectoris Take 1 tablet (25 mg total) by mouth 2 (two) times a day 180 tablet 3 01/13/2020 Active Active Problems No known active problems Social History Tobacco Use Types Packs/Day Years [...] Plan of Treatment Not on file Insurance [facility] CLAIMS OFFICE Care Teams Lock Expert Relationship Specialty Start Date End Date Keesha Goss MD [address] [place] [address] PCP - General Internal Medicine 12/26/19
--- OUTSIDE RECORDS SUMMARY | 2024-04-19 05:50 | XMS_ITS | Encounter Summary ---
Author Organization [facility] Address [address] [place] [address]. [place] [address] [place] [address] Care Team Providers Care Armor Reconnaissance Vehicle Crewman Name Role Phone Sukhjinder Pat MD Primary Care Provider [phone] Ace Carlson MD Unavailable Unavailabl e Reason for Visit * Reason Comments Consult Encounter Details Date Type Department Care Team (Late st Contact Info) Description 05/14/2020 11:00 AM FORMULA MAKER Office Visit [facility] [place] [phone] Ace Carlson MD Consult Social History Tobacco [...] COVID-19? Unable to assess 05/12/2020 11:01 AM FORMULA MAKER documented as of this encounter Last Filed Vital Signs Vital Sign Reading Time Taken Comments Blood Pressure 140/101 05/14/2020 1:58 PM FORMULA MAKER Pulse 63 05/14/2020 1:57 PM FORMULA MAKER Temperature - - Respiratory Rate 24 05/14/2020 1:57 PM FORMULA MAKER Oxygen Saturation 98% 05/14/2020 1:57 PM FORMULA MAKER Inhaled Oxygen Concentration - - Weight 96.2 kg (212 lb) 05/14/2020 1:57 PM FORMULA MAKER Height 152.4 cm (5') 05/14/2020 1:57 PM FORMULA MAKER Body Mass Index 41.4 05/14/2020 1:57 PM FORMULA MAKER documented in this encounter Patient Instructions * Patient Instructions* Latonya Booker RN - 05/14/2020 11:00 AM FORMULA MAKER 1. Sleep study 2. Weight loss 3. BP 130/80 4. RTC 1 year (December 2020) - will review records ULA MAKER documented in this encounter Progress Notes * [...] Sukhjinder Pat MD PCP: SUKHJINDER PAT MD ULA MAKER * Ace Carlson MD - 05/14/2020 12:00 AM CST HISTORY OF PRESENT ILLNESS: Mrs. Morrow is seen in the [facility] today in consultation. She is a 70-year-old woman who was referred to the cardiology clinic by Dr. Pat for establishment of cardiovascular care after apparently suffering a NSTEMI requiring subsequent PCI. A review of the records shows that Mrs. Morrow presented to [facility] on 12/26/19 with complaints of chest [...] records more closely once they become available. ULA MAKER documented in this encounter Plan of Treatment Upcoming Encounters Date Type Department Care Team (Late st Contact Info) Description 07/08/2024 2:45 PM CDT Office Visit [facility] [place] [address] La Metz MD [address] [place] [address] documented as of this encounter Visit Diagnoses Diagnosis NSTEMI (non-ST elevated myocardial infarction) ([facility])- Primary Acute myocardial infarction, subendocardial infarction, episode of care unspecified Coronary artery disease involving [place] coronary artery of [place] heart without angina pectoris S/P coronary artery stent placement Postsurgical percutaneous transluminal coronary angioplasty status Essential hypertension Unspecified essential hypertension Other hyperlipidemia documented in this encounter Care Teams Armor Reconnaissance Vehicle Crewman Relationship Specialty Start Date End Date Sukhjinder Pat MD [address] [place] [phone] PCP - General INTERNAL MEDICINE 02/26/20 Ace Carlson MD [address] [place] [address] [place] Fruit [employer] Nut Farmworker CARDIOVASCULAR DISEASE 02/26/20 11/04/23 documented as of this encounter
--- OUTSIDE RECORDS SUMMARY | 2024-04-19 05:50 | XMS_ITS | Encounter Summary ---
Author Organization [facility] Address [address] [place] [address]. [place] [address] [place] [address] Care Team Providers Care Hearing Dog Trainer Name Role Phone Sukhjinder Pat MD Primary Care Provider [phone] Eladio Carlson MD Unavailable Unavailabl e Reason for Visit * Reason Comments Follow Up Encounter Details Date Type Department Care Team (Late st Contact Info) Description 07/05/2023 12:00 PM SHUCKER Office Visit [facility] [place] [phone] Eladio Carlson MD Follow Up Social History [...] Comments Blood Pressure 126/43 07/05/2023 11:38 AM SHUCKER Pulse 70 07/05/2023 11:38 AM SHUCKER Temperature - - Respiratory Rate 12 07/05/2023 11:38 AM SHUCKER Oxygen Saturation 95% 07/05/2023 11:38 AM SHUCKER Inhaled Oxygen Concentration - - Weight 99.3 kg (219 lb) 07/05/2023 11:38 AM SHUCKER Height 157.5 cm (5' 2 ) 07/05/2023 11:38 AM SHUCKER Body Mass Index 40.06 07/05/2023 11:38 AM SHUCKER documented in this encounter Patient Instructions * Patient Instructions* Filomena Nichole RN - 07/05/2023 12:00 PM SHUCKER No changes were made to your medications today by Dr. Carlson Please check this list with your actual home medications for accuracy Due to Dr. Carlson's upcoming chcf, you have been scheduled with DR. LA WONG for your next follow up, if you have a different preference please call [phone] to schedule with the physician of your choice. KER KER documented in this encounter Progress Notes * [...] Past Medical History: Diagnosis Date ??? Diabetes ([facility]) ??? GERD (gastroesophageal reflux disease) ??? HTN (hypertension) ??? Migraines ??? 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 Diagnoses/Impression: 1. Coronary artery disease involving [place] coronary artery of [place] heart without angina pectoris 2. NSTEMI (non-ST elevated myocardial infarction) ([facility]) 3. S/P coronary artery stent placement 4. Primary hypertension 5. Other hyperlipidemia 6. 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 provider found PCP: SUKHJINDER PAT MD * Eladio Carlson MD - 07/05/2023 12:00 AM CST Patient Name: MILLA WOLFE Date of : 1950 Account: [id number] Facility: [facility] Location: [facility] Date of Service: 07/05/2023 Visit HISTORY OF [...] in November 2019. This was performed at [facility] and demonstrated a long area of [...] any questions or problems. Signature/Date: ELADIO CARLSON #[id number] /SUT documented in this encounter Plan of Treatment Upcoming Encounters Date Type Department Care Team (Late st Contact Info) Description 07/08/2024 2:45 PM CDT Office Visit [facility] [address] [place] [phone] La Wong MD [address] [place] [address] documented as of this encounter Visit Diagnoses Diagnosis Coronary artery disease involving [place] coronary artery of [place] heart without angina pectoris- Primary NSTEMI (non-ST elevated myocardial infarction) ([facility]) Acute myocardial infarction, subendocardial infarction, episode of care unspecified S/P coronary artery stent placement Postsurgical percutaneous transluminal coronary angioplasty status Primary hypertension Unspecified essential hypertension Other hyperlipidemia 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
--- OUTSIDE RECORDS SUMMARY | 2024-04-19 05:50 | XMS_ITS | Encounter Summary ---
Author Organization [facility] Address [address] [place] [address]. [place] [address] [place] [address] Care Team Providers Care Technical Administrative Assistant Name Role Phone Keesha Goss MD Primary Care Provider [phone] Ace Carlson MD Unavailable Unavailabl e Reason for Visit * Reason Onset Date Comments Appointment Request 04/27/2021 annual f/u a ppt Encounter Details Date Type Department Care Team (Late st Contact Info) Description 04/27/2021 Telephone [facility] [place] [address] Ace Carlson MD Appointment Request [...] INS: [employer] APPT PROV/DATE/TIME: 06/23/2021 @ 8am ([place]) TESTING NEEDED/SCHEDULED: none STAFF MSG SENT: no COVID+TEST/EXPOSURE IN LAST 14 DAYS: n/a RECORDS NEEDED: none MYCHART OFFERED: yes LETTER SENT: yes, requested CARE TEAM: notified Patient expresses understanding and has no questions. ATED WORK PLATFORM OPERATOR documented in this encounter Plan of Treatment Upcoming Encounters Date Type Department Care Team (Late st Contact Info) Description 07/08/2024 2:45 PM CDT Office Visit [facility] [place] [phone] La Metz MD [address] [place] [address] documented as of this encounter Visit Diagnoses Not on filedocumented in this encounter Care Teams Technical Administrative Assistant Relationship Specialty Start Date End Date Keesha Goss MD [address] [place] [phone] PCP - General INTERNAL MEDICINE 02/26/20 Ace Carlson MD [address] [place] [phone] [place] Business Process Architect CARDIOVASCULAR DISEASE 02/26/20 11/04/23 documented as of this encounter
--- OUTSIDE RECORDS SUMMARY | 2024-04-19 05:50 | XMS_ITS | Encounter Summary ---
Author Organization [facility] Address [address] [place] [address]. [place] [address] [place] [address] Care Team Providers Care Remnants Cutter Name Role Phone Keesha Goss MD Primary Care Provider [phone] Ace Carlson MD Unavailable Unavailabl e Encounter [...] Coronavirus/COVID-19? No / Unsure 06/23/2021 7:27 AM FUNERAL PLANNER documented as of this encounter Plan of Treatment Upcoming Encounters Date Type Department Care Team (Late st Contact Info) Description 07/08/2024 2:45 PM CDT Office Visit [facility] [place] [address] La Metz MD [address] [place] [address] documented as of this encounter Visit Diagnoses Not on filedocumented in this encounter Care Teams Remnants Cutter Relationship Specialty Start Date End Date Keesha Goss MD [address] [place] [address] PCP - General INTERNAL MEDICINE 02/26/20 Ace Carlson MD [address] [place] [address] Anderson Bike Shop Manager CARDIOVASCULAR DISEASE 02/26/20 11/04/23 documented as of this encounter
--- OUTSIDE RECORDS SUMMARY | 2024-04-19 05:50 | XMS_ITS | Encounter Summary ---
Author Organization [facility] Address [address] [place] [address]. [place] [address] [place] [address] Care Team Providers Care Butcher Chicken And Fish Name Role Phone Sukhjinder Pat MD Primary Care Provider [phone] Ace Carlson MD Unavailable Unavailabl e Reason for Visit * Reason Comments Follow Up Encounter Details Date Type Department Care Team (Late st Contact Info) Description 06/29/2022 12:00 PM WINE CONSULTANT Office Visit [facility] [place] [address] Ace Carlson MD Follow Up Social History [...] Coronavirus/COVID-19? No / Unsure 06/29/2022 11:32 AM WINE CONSULTANT documented as of this encounter Last Filed Vital Signs Vital Sign Reading Time Taken Comments Blood Pressure 138/58 06/29/2022 12:00 PM WINE CONSULTANT Pulse 59 06/29/2022 12:00 PM WINE CONSULTANT Temperature - - Respiratory Rate 18 06/29/2022 12:00 PM WINE CONSULTANT Oxygen Saturation 98% 06/29/2022 12:00 PM WINE CONSULTANT Inhaled Oxygen Concentration - - Weight 95.7 kg (211 lb) 06/29/2022 12:00 PM WINE CONSULTANT Height 160 cm (5' 3 ) 06/29/2022 12:00 PM WINE CONSULTANT Body Mass Index 37.38 06/29/2022 12:00 PM WINE CONSULTANT documented in this encounter Patient Instructions * Attachments The following attachments cannot be sent through Care Everywhere. * Weight Loss Tips (Bulgarian) documented in this encounter Progress Notes * [...] findings. Diagnoses/Impression: 1. 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 NSTEMI (non-ST elevated myocardial infarction) ([facility]) 3. S/P coronary artery stent placement 4. [...] sensitivity to Aspirin. An echocardiogram performed at [facility] in November of 2019 revealed well preserved [...] should she have any questions or problems. #[id number] /JERAMY documented in this encounter Plan of Treatment Upcoming Encounters Date Type Department Care Team (Late st Contact Info) Description 07/08/2024 2:45 PM CDT Office Visit [facility] [place] [address] La Metz MD [address] [place] [address] documented as of this encounter Visit Diagnoses Diagnosis Coronary artery disease involving sioux coronary artery of sioux heart without angina pectoris- Primary NSTEMI (non-ST elevated myocardial infarction) ([facility]) Acute myocardial infarction, subendocardial infarction, episode of care unspecified S/P coronary artery stent placement Postsurgical percutaneous transluminal coronary angioplasty status Primary hypertension Unspecified essential hypertension Other hyperlipidemia documented in this encounter Care Teams Butcher Chicken And Fish Relationship Specialty Start Date End Date Sukhjinder Pat MD [address] [place] [phone] PCP - General INTERNAL MEDICINE 02/26/20 Ace Carlson MD [address] [place] [address] [place] Extrusion Former CARDIOVASCULAR DISEASE 02/26/20 11/04/23 documented as of this encounter
--- OUTSIDE RECORDS SUMMARY | 2024-04-19 05:50 | XMS_ITS | Encounter Summary ---
Author Organization [facility] Address [address] [place] [address]. [place], [place] [address] [place] [address] Care Team Providers Care Pearl Maker Name Role Phone Keesha Goss MD Primary Care Provider [phone] Ace Carlson MD Unavailable Unavailabl e La Metz MD Unavailable Encounter Details Date Type Department Care Team (Late st Contact Info) Description 07/08/2022 Abstract [facility] [address] [place] [address] Ace Carlson MD Social History [...] Coronavirus/COVID-19? No / Unsure 06/29/2022 11:32 AM COMPUTER NETWORKING INSTRUCTOR documented as of this encounter Plan of Treatment Upcoming Encounters Date Type Department Care Team (Late st Contact Info) Description 07/08/2024 2:45 PM CDT Office Visit [facility] [place] [address] La Metz MD [address] [place] [address] documented as of this encounter Procedures Procedure Name Priority Date/Time Associated Diagnosis Comments CMP (ABSTRACTED LAB) Routine 06/27/2022 C REACTIVE PROTEIN QUANT Routine 06/27/2022 CBC (OUTSIDE LAB) Routine 06/27/2022 SED RATE, ERYTHROCYTE (ESR) Routine 06/27/2022 CK (CPK) Routine 06/27/2022 documented in this encounter Results * C REACTIVE PROTEIN QUANT (06/27/2022) Pathologist [facility] C-REACTIVE PROTEIN 19.9 <8.0 06/27/2022 us Default History Genericprovider LABORATORY Final Result * CBC (OUTSIDE LAB) (06/27/2022) Pathologist [facility] WBC 5.9 3.8 - 10.8 HGB 12.2 11.7 - 15.5 HCT 35.7 35.0 - 45.0 PLT 266 140 - 400 RBC 3.63 3.80 - 5.10 06/27/2022 Default History Genericprovider LAB-OUTSIDE/ABST RACTED Final Result * SED RATE, ERYTHROCYTE (ESR) (06/27/2022) Pathologist [facility] SED RATE 36 0 - 30 06/27/2022 us Default History Genericprovider LABORATORY Final Result * CK (CPK) (06/27/2022) Pathologist [facility] CPK 35 29 - 143 06/27/2022 us [...] on filedocumented in this encounter Care Teams Pearl Maker Relationship Specialty Start Date End Date Keesha Goss MD [address] [place] [phone] PCP - General INTERNAL MEDICINE 02/26/20 Ace Carlson MD [address] [place] [address] [place] Team Cdl Driver CARDIOVASCULAR DISEASE 02/26/20 11/04/23 La Metz MD [address] [place] [address] Consulting Physician CARDIOVASCULAR DISEASE 11/05/23 documented as of this encounter
--- OUTSIDE RECORDS SUMMARY | 2024-04-19 05:50 | XMS_ITS | Encounter Summary ---
Author Organization [facility] Address [address] [place] [address]. [place] [address] [place] [address] Care Team Providers Care Deck Mate Name Role Phone Keesha Goss MD Primary Care Provider [phone] Ace Carlson MD Unavailable Unavailabl e Encounter Details Date Type Department Care Team (Late st Contact Info) Description 06/18/2020 Abstract [facility] [address] [place] [phone] Abstract, Doc [facility] Social History Tobacco Use [...] Description 07/08/2024 2:45 PM CDT Office Visit [facility] [place] [address] La Metz MD [address] [place], [place] [phone] documented as of this encounter Procedures Procedure Name Priority Date/Time Associated Diagnosis Comments CMP (ABSTRACTED LAB) Routine 05/11/2020 HEMOGLOBIN, GLYCOSYLATED Routine 05/11/2020 LIPID PANEL Routine 05/11/2020 CBC, AUTO, NO DIFF Routine 05/11/2020 documented in this encounter Results * CBC, AUTO, NO DIFF (05/11/2020) Pathologist [facility] WBC 8.1 RBC 4.73 HGB 14.7 HCT 45.3 MCV 95.8 MCH 31.1 MCHC 32.5 RDW 13.3 PLT 228 MPV 12.4 05/11/2020 us Doc [facility] Abstract LABORATORY Final Result * HEMOGLOBIN, GLYCOSYLATED (05/11/2020) Pathologist [facility] HGB A1C 5.9 % 05/11/2020 us Doc [facility] Abstract LABORATORY Final Result * (ABNORMAL) CMP (ABSTRACTED LAB) (05/11/2020) Pathologist [facility] SODIUM S/P/B 141 POTASSIUM S/P/B 4.5 CHLORIDE [...] Final Result * LIPID PANEL (05/11/2020) Pathologist [facility] CHOLESTEROL 120 HDL 47 TRIGLYCERIDES 120 NON HDL CHOLESTEROL 73 CHOL/HDL RATIO 2.6 LDL (CALCULATED) 52 05/11/2020 us Doc [facility] Abstract LABORATORY Final Result documented in this encounter Visit Diagnoses Not on filedocumented in this encounter Care Teams Deck Mate Relationship Specialty Start Date End Date Keesha Goss MD [address] [place] [address] PCP - General INTERNAL MEDICINE 02/26/20 Ace Carlson MD [address] [place] [address] [place] Concrete Smoother CARDIOVASCULAR DISEASE 02/26/20 11/04/23 documented as of this encounter
--- OUTSIDE RECORDS SUMMARY | 2024-04-19 05:50 | XMS_ITS | Encounter Summary ---
Author Organization [facility] Address [address] [place] [address]. [place] [address] [place] [address] Care Team Providers Care Story Reader Name Role Phone Keesha Goss MD Primary Care Provider [phone] Ace Carlson MD Unavailable Unavailabl e Encounter [...] Coronavirus/COVID-19? No / Unsure 06/29/2022 11:32 AM DIRECTOR OF FIELD COORDINATION documented as of this encounter Plan of Treatment Upcoming Encounters Date Type Department Care Team (Late st Contact Info) Description 07/08/2024 2:45 PM CDT Office Visit [facility] [place] [address] La Metz MD [address] [place] [address] documented as of this encounter Visit Diagnoses Not on filedocumented in this encounter Care Teams Story Reader Relationship Specialty Start Date End Date Keesha Goss MD [address] [place] [address] PCP - General INTERNAL MEDICINE 02/26/20 Ace Carlson MD [address] [place] [address] [place] Stitchdowns Toe Former CARDIOVASCULAR DISEASE 02/26/20 11/04/23 documented as of this encounter
--- OUTSIDE RECORDS SUMMARY | 2024-04-19 05:50 | XMS_ITS | Clinical Summary ---
Author Organization [facility] Address [facility] 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[facility]) Diabetes ([facility]) GERD (gastroesophageal reflux disease) HTN (hypertension) Migraines [...] Comments Blood Pressure 126/43 07/05/2023 11:38 AM POWDER COAT PAINTER Pulse 70 07/05/2023 11:38 AM POWDER COAT PAINTER Temperature - - Respiratory Rate 12 07/05/2023 11:38 AM POWDER COAT PAINTER Oxygen Saturation 95% 07/05/2023 11:38 AM POWDER COAT PAINTER Inhaled Oxygen Concentration - - Weight 99.3 kg (219 lb) 07/05/2023 11:38 AM POWDER COAT PAINTER Height 157.5 cm (5' 2 ) 07/05/2023 11:38 AM POWDER COAT PAINTER Body Mass Index 40.06 07/05/2023 11:38 AM POWDER COAT PAINTER Plan of Treatment Upcoming Encounters Date Type Department Care Team (Late st Contact Info) Description 07/08/2024 2:45 PM CDT Office Visit [facility] [place] [address] La Metz MD [address] [place] [address] Health Maintenance Due Date Last Done Comments [...] to Health Maintenance Insurance HUMAN Care Teams Group Fitness Instructor Relationship Specialty Start Date End Date Keesha Goss MD [address] [place] [address] PCP - General INTERNAL MEDICINE 02/26/20 La Metz MD [address] [place] [address] Consulting Physician CARDIOVASCULAR DISEASE 11/05/23
--- OUTSIDE RECORDS SUMMARY | 2024-04-19 05:50 | XMS_ITS | Encounter Summary ---
Author Organization [facility] Address [address] [place] [address]. [place] [address] [place] [address] Care Team Providers Care Refrigeration Lead Name Role Phone Keesha Goss MD Primary Care Provider [phone] Ace Carlson MD Unavailable Unavailabl e Encounter Details Date Type Department Care Team (Late st Contact Info) Description 06/23/2020 Orders Only [facility] [address] [place] [address] Abstract, Doc [facility] Social History [...] Description 07/08/2024 2:45 PM CDT Office Visit [facility] [place] [address] La Metz MD [address] [place] [address] documented as of this encounter Procedures Procedure Name Priority Date/Time Associated Diagnosis Comments XA CORONARY INTERVENTION Routine 12/27/2019 NM PHARM NUC STRESS TEST 1DAY Routine 12/26/2019 USE ECHOCARDIOGRAM Routine 12/26/2019 ECG 12-LEAD Routine 12/25/2019 documented in this encounter Results * XA CORONARY INTERVENTION (12/27/2019) Anatomical Region Laterality Modality Cardiac Supervisor Color Paste Mixing us Doc [facility] Abstract LABORATORY IMMUNOLOGIST Final Result * NM PHARM NUC STRESS [...] on filedocumented in this encounter Care Teams Refrigeration Lead Relationship Specialty Start Date End Date Keesha Goss MD [address] [place] [phone] PCP - General INTERNAL MEDICINE 02/26/20 Ace Carlson MD [address] [place] [address] [place] [facility] Immunologist CARDIOVASCULAR DISEASE 02/26/20 11/04/23 documented as of this encounter
--- OUTSIDE RECORDS SUMMARY | 2024-04-19 05:50 | XMS_ITS | Encounter Summary ---
Author Organization [facility] Address [address] [place] [address]. [place], [place] [address] [place] [address] Care Team Providers Care General Warehouse Associate Name Role Phone Keesha Goss MD Primary Care Provider [phone] Ace Carlson MD Unavailable Unavailabl e La Metz MD Unavailable Encounter Details Date Type Department Care Team (Late st Contact Info) Description 07/07/2022 Abstract [facility] [address] [place] [address] Ace Carlson MD Social History [...] Coronavirus/COVID-19? No / Unsure 06/29/2022 11:32 AM BALANCE SCREWHEAD POLISHER documented as of this encounter Plan of Treatment Upcoming Encounters Date Type Department Care Team (Late st Contact Info) Description 07/08/2024 2:45 PM CDT Office Visit [facility] [place] [address] La Metz MD [address] [place] [address] documented as of this encounter [...] on filedocumented in this encounter Care Teams General Warehouse Associate Relationship Specialty Start Date End Date Keesha Goss MD [address] [place] [phone] PCP - General INTERNAL MEDICINE 02/26/20 Ace Carlson MD [address] [place] [address] [place] Aerial Erector CARDIOVASCULAR DISEASE 02/26/20 11/04/23 La Metz MD [address] [place] [address] Consulting Physician CARDIOVASCULAR DISEASE 11/05/23 documented as of this encounter
--- OUTSIDE RECORDS SUMMARY | 2024-04-19 05:50 | XMS_ITS | Encounter Summary ---
Author Organization [facility] Address [address] [place] [address]. [place] [address] [place] [address] Care Team Providers Care Geek Squad Autotech Name Role Phone Sukhjinder Pta MD Primary Care Provider [phone] Ace Carlson MD Unavailable Unavailabl e Reason for Visit * Reason Comments Follow Up Encounter Details Date Type Department Care Team (Late st Contact Info) Description 06/23/2021 8:00 AM PARQUET FLOOR LAYER'S HELPER Office Visit [facility] [place] [address] Ace Carlson MD Follow Up Social History [...] Coronavirus/COVID-19? No / Unsure 06/23/2021 7:27 AM PARQUET FLOOR LAYER'S HELPER documented as of this encounter Last Filed Vital Signs Vital Sign Reading Time Taken Comments Blood Pressure 131/59 06/23/2021 8:05 AM PARQUET FLOOR LAYER'S HELPER Pulse 70 06/23/2021 8:00 AM PARQUET FLOOR LAYER'S HELPER Temperature - - Respiratory Rate 20 06/23/2021 8:00 AM PARQUET FLOOR LAYER'S HELPER Oxygen Saturation 98% 06/23/2021 8:00 AM PARQUET FLOOR LAYER'S HELPER Inhaled Oxygen Concentration - - Weight 97.7 kg (215 lb 6.4 oz) 06/23/2021 8:00 A M PARQUET FLOOR LAYER'S HELPER Height 157.5 cm (5' 2 ) 06/23/2021 8:00 AM PARQUET FLOOR LAYER'S HELPER Body Mass Index 39.4 06/23/2021 8:00 AM PARQUET FLOOR LAYER'S HELPER documented in this encounter Patient Instructions * Patient Instructions* Filomena Nichole RN - 06/23/2021 8:00 AM PARQUET FLOOR LAYER'S HELPER Images from the original note were not [...] low-fat sour cream or salad dressings ? [place] butter ? Diet syrups or jellies over [...] products: ? 1% or skim milk ? [place] butter or margarine ? Low-fat or fat-free [...] learn more? Academy of Nutrition and Dietetics https://www.eatright.org/health/weight-loss/jkgs-rccnmi-xao-your-weight/back-to- lcykao-pjy-kgitkjk-weight-loss Centers for Disease Control and Prevention https://www.cdc.gov/healthyweight/healthy_eating/index.html Familydoctor.org https://familydoctor.org/jruwxerpc-wvkomv-fukb-tmsa-kgiu-fci-diets/ NHS https://www.nhs.uk/live-well/healthy-weight/30-fgxr-fq-eekx-yly-htfh-weight/?tab name=ihm-aed-xqbt-weight Last Reviewed Date 2020-10-22 Consumer Information Use [...] or approved for treating a specific patient. [employer] and its affiliates disclaim any warranty or liability relating to this information or the use thereof. The use of this information is governed by the Terms of Use, available at https://www.[employer].AtriCure/en/solutions/lexicomp/about/boris Copyright Copyright ?? 2020 [employer] and its affiliates and/or licensors. All rights reserved. UET FLOOR LAYER'S HELPER documented in this encounter Progress Notes * [...] will be taken in addition to Coenzyme V50802 mg p.o. daily in an effort to [...] Description 07/08/2024 2:45 PM CDT Office Visit [facility] [place] [address] La Metz MD [address] [place] [address] documented as of this encounter Visit Diagnoses Diagnosis Coronary artery disease involving confederated yakama coronary artery of confederated yak[place] heart without angina pectoris- Primary NSTEMI (non-ST elevated myocardial infarction) ([facility]) Acute myocardial infarction, subendocardial infarction, episode of care unspecified S/P coronary artery stent placement Postsurgical percutaneous transluminal coronary angioplasty status Primary hypertension Unspecified essential hypertension Other hyperlipidemia documented in this encounter Care Teams Geek Squad Autotech Relationship Specialty Start Date End Date Sukhjinder Pat MD [address] [place] [address] PCP - General INTERNAL MEDICINE 02/26/20 Ace Carlson MD [address] [place] [address] Boyd Revenue Analyst CARDIOVASCULAR DISEASE 02/26/20 11/04/23 documented as of this encounter
--- OUTSIDE RECORDS SUMMARY | 2024-04-19 05:50 | XMS_ITS | Encounter Summary ---
Author Organization [facility] Address [address] [place] [address]. [place] [address] [place] [address] Care Team Providers Care Concrete Pourer Name Role Phone Keesha Goss MD Primary Care Provider [phone] Ace Carlson MD Unavailable Unavailabl e Encounter [...] COVID-19? Unable to assess 05/12/2020 11:01 AM DIRECTOR OF ASSESSING documented as of this encounter Plan of Treatment Upcoming Encounters Date Type Department Care Team (Late st Contact Info) Description 07/08/2024 2:45 PM CDT Office Visit [facility] [place] [address] La Metz MD [address] [place] [address] documented as of this encounter Visit Diagnoses Not on filedocumented in this encounter Care Teams Concrete Pourer Relationship Specialty Start Date End Date Keesha Goss MD [address] [place] [address] PCP - General INTERNAL MEDICINE 02/26/20 Ace Carlson MD [address] [place] [address] [place] Hide And Skin Fleshing Machine Operator CARDIOVASCULAR DISEASE 02/26/20 11/04/23 documented as of this encounter
--- OUTSIDE RECORDS SUMMARY | 2024-04-19 05:50 | XMS_ITS | Encounter Summary ---
Author Organization [facility] Address [address] [place] [address]. [place] [address] [place] [address] Care Team Providers Care Shoe Sewing Machine Operator And Tender Name Role Phone Keesha Goss MD Primary Care Provider [phone] Ace Carlson MD Unavailable Unavailabl e Reason for Visit * Reason Onset Date Comments Appointment Request 02/26/2020 [place] Encounter Details Date Type Department Care Team ([facility] Contact Info) Description 02/26/2020 Telephone [facility] [place] [address] [place] [phone] Ace Carlson MD Appointment Request ([place]) Social History Tobacco Use Types Packs/Day Years [...] CDT Called Pt to schedule appointment in [place]. Scheduled for 05/14/2020 at 11:00. She agreed. Reminder letter mailed. * Parisa Booker - 02/26/2020 10:21 AM CDT Pt called to schedule new patient appt in [place]. Informed pt that schedule is full for [...] Description 07/08/2024 2:45 PM CDT Office Visit [facility] [address] [place] [address] La Metz MD [address] [place] [address] documented as of this encounter Visit Diagnoses Not on filedocumented in this encounter Care Teams Shoe Sewing Machine Operator And Tender Relationship Specialty Start Date End Date Keesha Goss MD [address] [place] [phone] PCP - General INTERNAL MEDICINE 02/26/20 Ace Carlson MD [address] [place] [address] [facility] CARDIOVASCULAR DISEASE 02/26/20 11/04/23 documented as of this encounter
--- OUTSIDE RECORDS SUMMARY | 2024-04-19 05:50 | XMS_ITS | Encounter Summary ---
Author Organization [facility] Address [address] [place] [address]. [place] [address] [place] [address] Care Team Providers Care Esthetician Permanent Makeup Artist Name Role Phone Keesha Goss MD Primary Care Provider [phone] Ace Carlson MD Unavailable Unavailabl e Encounter [...] Description 07/08/2024 2:45 PM CDT Office Visit [facility] [place] [address] La Metz MD [address] [place] [address] documented as of this encounter Visit Diagnoses Not on filedocumented in this encounter Care Teams Esthetician Permanent Makeup Artist Relationship Specialty Start Date End Date Keesha Goss MD [address] [place] [phone] PCP - General INTERNAL MEDICINE 02/26/20 Ace Carlson MD [address] [place] [address] [place] Manager Of Disaster Recovery CARDIOVASCULAR DISEASE 02/26/20 11/04/23 documented as of this encounter
--- OUTSIDE RECORDS SUMMARY | 2024-04-19 05:50 | XMS_ITS | Encounter Summary ---
Author Organization [facility] Address [address] [place] [address]. [place] [address] [place] [address] Care Team Providers Care Education Rn Name Role Phone Keesha Goss MD Primary Care Provider [phone] Ace Carlson MD Unavailable Unavailabl e Encounter Details Date Type Department Care Team (Late Contact Info) Description 06/10/2021 Abstract [facility] [address] [place] [address] Abstract, Doc [facility] Social History [...] Coronavirus/COVID-19? No / Unsure 06/23/2021 7:27 AM OIL WELL CABLE TOOL DRILLER documented as of this encounter Plan of Treatment Upcoming Encounters Date Type Department Care Team (Late st Contact Info) Description 07/08/2024 2:45 PM CDT Office Visit [facility] [place] [address] La Metz MD [address] [place] [address] documented as of this encounter [...] Result * C-REACTIVE PROTEIN (06/08/2021) Pathologist [facility] CRP 5.2 06/08/2021 us Doc [facility] Abstract LABORATORY Final Result * (ABNORMAL) FOLATE (OUTSIDE LAB) (06/08/2021) [facility] FOLATE 361(A) <=280 06/08/2021 us Doc [facility] Abstract LAB-OUTSIDE/ABSTRACTED Final Result * VITAMIN D 1,25 DIHYDROXY (06/08/2021) [facility] VITAMIN D 1 25 DIHYDROXY S/P/B 34 06/08/2021 us Doc [facility] Abstract LABORATORY Final Result * CBC W/DIFF AUTOMATED (06/08/2021) [facility] WBC 8.0 RBC 4.59 HGB 14.3 HCT 43.4 MCV 94.6 MCH 31.2 MCHC 32.9 RDW 14.0 PLT 259 MPV 12.0 NEUTROPHILS % 53.7 LYMPHOCYTES % 36.14 MONOCYTES % 7.0 EOSINOPHILS % 2.4 BASOPHILS % 0.5 ABS. NEUTROPHILS 4,296 ABS. LYMPHOCYTES 2,912 ABS. MONOCYTES 560 ABS. BASOPHILS 40 06/08/2021 us Doc [facility] Abstract LABORATORY Final Result * (ABNORMAL) COMPREHENSIVE METABOLIC PANEL (06/08/2021) [facility] SODIUM S/P/B 139 POTASSIUM S/P/B 4.3 CO2 [...] on filedocumented in this encounter Care Teams Education Rn Relationship Specialty Start Date End Date Keesha Goss MD [address] [place] [id number] PCP - General INTERNAL MEDICINE 02/26/20 Ace Carlson MD [address] [place] [address] [place] [employer] Specialist CARDIOVASCULAR DISEASE 02/26/20 11/04/23 documented as of this encounter
--- OUTSIDE RECORDS SUMMARY | 2024-04-19 05:51 | XMS_ITS | Referral Summary ---
Author Organization [facility] [address] Address [address] [place] [address] Care Team Providers Care Solar Pv Installer Name Role Phone Keesha Goss MD Primary Care Provider [phone] Allergies Active Allergy Reactions Criticality Noted Date [...] immediate release tabletIndication s:Coronary artery disease involving [place] coronary artery of [place] heart without angina pectoris Take 1 tablet [...] Plan of Treatment Not on file Insurance [facility] CLAIMS OFFICE Care Teams Solar Pv Installer Relationship Specialty Start Date End Date Keesha Goss MD [address] [place] [address] PCP - General Internal Medicine 12/26/19
--- OUTSIDE RECORDS SUMMARY | 2024-04-19 05:51 | XMS_ITS | Encounter Summary ---
Author Organization [facility] Address [address] [facility] [address] [place] [address] Care Team Providers Care Audio Installer Name Role Phone Keesha Goss MD Primary Care Provider [phone] Encounter Details Date Type Department Care Team (Late st Contact Info) Description 12/27/2019 Orders Only [facility] Cardiology [address] [place] [address] Rubin Muñoz MD [address] [facility] [address] [place] [address] Social History Tobacco Use Types [...] on filedocumented in this encounter Care Teams Audio Installer Relationship Specialty Start Date End Date Keesha Goss MD [address] [place] [address] PCP - General Internal Medicine 12/26/19 documented as of this encounter
--- OUTSIDE RECORDS SUMMARY | 2024-04-19 05:51 | XMS_ITS | Encounter Summary ---
Author Organization [facility] Address [address] [facility] [address] [place] [address] Care Team Providers Care Marine Cargo Surveyor Name Role Phone Keesha Goss MD Primary Care Provider [phone] Encounter Details Date Type Department Care Team (Late st Contact Info) Description 12/26/2019 Orders Only [facility] Cardiology [address] [facility] [address] [facility] [address] [place] [address] Tamera Mendez MD [address] [facility] [address] [place] [address] Social History Tobacco Use Types [...] on filedocumented in this encounter Care Teams Marine Cargo Surveyor Relationship Specialty Start Date End Date Keesha Goss MD [address] [place] [address] PCP - General Internal Medicine 12/26/19 documented as of this encounter
--- OUTSIDE RECORDS SUMMARY | 2024-04-19 05:51 | XMS_ITS | Clinical Summary ---
Author Organization [facility] [address] Address [address] [place] [address] Care Team Providers Care Agricultural Agent Name Role Phone Keesha Goss MD Primary Care Provider [phone] Allergies Active Allergy Reactions Criticality Noted Date [...] immediate release tabletIndication s:Coronary artery disease involving [place] coronary artery of [place] heart without angina pectoris Take 1 tablet [...] file Insurance [employer] CLAIMS OFFICE Care Teams Agricultural Agent Relationship Specialty Start Date End Date Keesha Goss MD [address] [place] [address] PCP - General Internal Medicine 12/26/19
--- OUTSIDE RECORDS SUMMARY | 2024-04-19 05:51 | XMS_ITS | Encounter Summary ---
Author Organization [facility] Address [address] [facility] [address] [place] [address] Care Team Providers Care Pianos And Organs Salesperson Name Role Phone Keesha Goss MD Primary Care Provider [phone] Encounter Details Date Type Department Care Team (Late st Contact Info) Description 12/26/[address] [facility] Cardiology [address] [email or web address] [address] [place] [address] Romero Robles MD [address] [id number] Social History Tobacco Use Types Packs/Day Years [...] on filedocumented in this encounter Care Teams Pianos And Organs Salesperson Relationship Specialty Start Date End Date Keesha Goss MD [address] [place] [address] PCP - General Internal Medicine 12/26/19 documented as of this encounter
--- OUTSIDE RECORDS SUMMARY | 2024-04-19 05:51 | XMS_ITS | Encounter Summary ---
Author Organization [facility] Address [address] [facility] [address] [place] [address] Care Team Providers Care Integration Technician Name Role Phone Keesha Goss MD Primary Care Provider [phone] Encounter Details Date Type Department Care Team (Late st Contact Info) Description 12/28/2019 Orders Only [facility] Cardiology [address] [facility] 162 [facility] [address] [place] [address] Tamera Mendez MD [address] [facility] [address] [place] [address] Social History Tobacco Use Types [...] on filedocumented in this encounter Care Teams Integration Technician Relationship Specialty Start Date End Date Keesha Goss MD [address] [place] [address] PCP - General Internal Medicine 12/26/19 documented as of this encounter
--- OUTSIDE RECORDS SUMMARY | 2024-04-19 05:51 | XMS_ITS | Encounter Summary ---
Author Organization [facility] Address [address] [facility] [address] [place] [address] Care Team Providers Care Table Hand Name Role Phone Keesha Goss MD Primary Care Provider [phone] Reason for Visit * Reason Comments Hospital Follow Up NSTEMI, PHOEBE to RCA x 2 * Consultation (Routine) - Closed Specialty Diagnoses / Procedures Referred By Contac t Referred To Contact Cardiology Diagnoses NSTEMI (non-ST elevated myocardial infarction) (CMS/HCC) (HCC) Keesha Goss MD [address] [place] [address] Phone: tel: fax: [facility] Cardiology [address] [address] Phone: tel: fax: Referral ID Status Reason Start Date Expiration Date V isits Requested Visits Authorized [id number] Closed Specialty Services Required 01/08/2020 07/07/2020 30 30 Encounter Details Date Type Department Care Team (Late st Contact Info) Description 01/13/2020 2:00 PM CDT Office Visit [facility] Cardiology [address] [address] Miri Young NP [address] [facility] [address] [place] [address] [place], [place] [id number] History of non-ST elevation myocardial infarction (NSTEMI) (Primary Dx); Presence of stent in coronary artery; Coronary artery disease involving [place] coronary artery of [place] heart without angina pectoris; Myalgia due to statin; Exercise counseling; Hospital discharge follow-up; NSTEMI (non-ST elevated myocardial infarction) ([facility] Social History Tobacco Use Types Packs/Day Years [...] immediate release tabletIndications:C oronary artery disease involving [place] coronary artery of [place] heart without angina pectoris Take 1 tablet [...] from the original note were not included. [facility] Cardiology [address] [place] [address] Date of Visit: 01/13/2020 Patient ID: Carlotta [...] her RA, required resection. She presented to [facility] on 12/26/2019 with complaint of [...] 131, LDL 100. 01/13/2020 office visit with DELICATESSEN GOODS STOCK CLERK: She is here for hospital follow-up. She [...] outlined in the HPI above) November 2019 [facility] inpatient records including the consultation [...] times a day Coronary artery disease involving [place] coronary artery of [place] heart without angina pectoris - isosorbide mononitrate [...] or concerns. SRINIVASAN Mendenhall- Nurse Practitioner with [facility] Cardiology This note is dictated and transcribed using [employer]. Principal Software Architect variancesmay occur. Despite proofreading, typographical errors may occur. documented in this encounter Plan of Treatment Not on file documented as of this encounter Visit Diagnoses Diagnosis History of non-ST elevation myocardial infarction (NSTEMI)- Primary Presence of stent in coronary artery Coronary artery disease involving [place] coronary artery of [place] heart without angina pectoris Myalgia due to [...] 01/20/2020 documented in this encounter Care Teams Table Hand Relationship Specialty Start Date End Date Keesha Goss MD [address] [place] [address] PCP - General Internal Medicine 12/26/19 documented as of this encounter
--- OUTSIDE RECORDS SUMMARY | 2024-04-19 05:51 | XMS_ITS | Encounter Summary ---
Author Organization [facility] Address [address] [facility] [address] [place] [address] Care Team Providers Care Fiber Heel Piece Shaper Name Role Phone Keesha Goss MD Primary Care Provider [phone] Encounter Details Date Type Department Care Team (Late st Contact Info) Description 12/26/2019 Orders Only [facility] Cardiology [address] [facility] 162 [facility] [address] [place] [address] Tamera Mendez MD [address] [facility] [address] [place] [address] Social History Tobacco Use Types [...] on filedocumented in this encounter Care Teams Fiber Heel Piece Shaper Relationship Specialty Start Date End Date Keesha Goss MD [address] [place] [address] PCP - General Internal Medicine 12/26/19 documented as of this encounter
== END 2024-04-14 14:40 | disposition left against medical advice (07) ==
PROVIDERS: Emergency Provider Emergency Medicine; PCP Internal Medicine
DX: F41.9 Anxiety disorder, unspecified (principal); I10 Essential (primary) hypertension; E78.5 Hyperlipidemia, unspecified; E11.9 Type 2 diabetes mellitus without complications; I25.2 Old myocardial infarction; F17.210 Nicotine dependence, cigarettes, uncomplicated; Z79.899 Other long term (current) drug therapy; Z79.1 Long term (current) use of non-steroidal anti-inflammatories (NSAID)
CPT/HCPCS: 36415; 71045; 80053; 83880; 84484; 85025; 85610; 85730; 93005; 99284; A9270

== ENCOUNTER 2024-04-15 12:10 | Outpatient (CLI) | payer MEDICARE, SELFPAY ==
[2024-04-15 12:48] LABS: Creatine Kinase 70 U/L (26-192); Troponin I 6.8 ng/L (0.00-60.4)
== END 2024-04-15 12:11 | disposition home or self-care (01) ==
LOC: CHSLAB 12:12
PROVIDERS: PCP Internal Medicine; Visit Provider Internal Medicine
DX: R07.9 Chest pain, unspecified (principal)
CPT/HCPCS: 36415; 82550; 82553; 84484

== ENCOUNTER 2024-05-15 13:55 | Outpatient (CLI) | payer MEDICARE, SELFPAY ==
[2024-05-15 14:23] LABS: Basophils Absolute Auto 0.05 K/mm3 (0.00-0.10); Basophils Percent Auto 0.4 % (0.0-1.0); Eosinophils Absolute Auto 0.24 K/mm3 (0.02-0.50); Eosinophils Percent Auto 1.9 % (1.0-6.0); Hematocrit 41.3 % (35.0-42.0); Hemoglobin 13.2 g/dL (11.7-13.8); Immature Granulocyte Absolute 0.04 K/mm3 (0.00-0.00); Immature Granulocyte Percent A 0.3 % (0.0-0.0); Lymphocytes Absolute Auto 3.72 K/mm3 (1.10-4.50); Lymphocytes Percent Auto 29.7 % (18.0-42.0); Mean Corpuscular Hemoglobin 28.8 pg (27.0-31.0); Mean Corpuscular Volume 90.2 fL (78.0-102.0); Mean Platelet Volume 11.4 fl (9.2-11.8); Monocytes Absolute Auto 1.25 K/mm3 (0.10-0.90); Neutrophils Absolute Auto 7.24 K/mm3 (1.70-7.20); Neutrophils Percent Auto 57.7 % (50.0-70.0); Platelet Count Result 212 K/mm3 (150-420); Red Blood Count 4.58 M/mm3 (4.20-5.40); Red Cell Distribution Width 13.3 % (11.6-14.4); White Blood Count 12.5 K/mm3 (4.8-10.8)
[2024-05-15 14:56] LABS: Alanine Aminotransferase 16 U/L (14-59); Albumin Level 3.2 g/dL (3.4-5.0); Alkaline Phosphatase 85 U/L (46-116); Anion Gap 10 mmol/L (4-12); Aspartate Amino Transferase < 10 U/L (15-37); Bilirubin,Total 0.5 mg/dL (0.00-1.00); Blood Urea Nitrogen 15 mg/dL (7-18); Carbon Dioxide 29 mmol/L (21-32); Chloride 101 mmol/L (98-108); Estimated Glomerular Filt Rate 47; Glucose 92 mg/dL (70-99); Osmolality Calculated 290 mOsm/kg (285-295); Potassium 4.3 mmol/L (3.5-5.1); Sodium 140 mmol/L (136-145); Total Protein 6.2 g/dL (6.4-8.2)
[2024-05-15 15:02] LABS: Toxigenic C. Diff NEGATIVE (NEGATIVE)
== END 2024-05-15 13:56 | disposition home or self-care (01) ==
PROVIDERS: PCP Internal Medicine; Visit Provider Internal Medicine
DX: R19.7 Diarrhea, unspecified (principal)
CPT/HCPCS: 36415; 80053; 85025; 87493

== ENCOUNTER 2024-07-09 14:21 | Outpatient (CLI) | payer MEDICARE, SELFPAY ==
--- NOTE | ~2024-07-09 | CT_ITS ---
EXAMINATION: CT soft tissue neck w con DATE: 07/09/2024 14:56 INDICATION: Throat pain. Dysphonia. TECHNIQUE: Computed tomography (CT) of the neck was performed with 75 mL Omnipaque-350 intravenous co ntrast. Automated exposure control and iterative reconstruction technique were employed. The dose-laverne gth product was 542.07 mGy-cm. COMPARISON: None FINDINGS: There is mild emphysema. There is a mass involving the supraglottic larynx centered to the right of midline. There is a 13 x 12 mm right high internal jugular chain lymph node. There is a 6 mm nodule in left thyroid lobe, likely not clinically significant. There is plaque in the proximal inte rnal carotid arteries with 0% stenosis relative to normal distal artery lumen diameters. There is sev ere cervical and thoracic spondylosis. IMPRESSION: 1. Mass of the supraglottic larynx, consistent with squamous cell carcinoma. 2. Mildly enlarged high right internal jugular chain lymph node, consistent with metastatic disease. Reviewed, dictated and finalized at location B. IMPRESSION: 1. Mass of the supraglottic larynx, consistent with squamous cell carcinoma. 2. Mildly enlarged high right internal jugular chain lymph node, consistent wit h metastatic disease.
[2024-07-09 14:45] LABS: Estimated Glomerular Filt Rate 40
== END 2024-07-09 14:22 | disposition home or self-care (01) ==
LOC: MICIMG 14:22
PROVIDERS: PCP Internal Medicine; Visit Provider Internal Medicine
DX: J38.7 Other diseases of larynx (principal); R59.0 Localized enlarged lymph nodes; R49.0 Dysphonia; R07.0 Pain in throat
CPT/HCPCS: 70491; Q9967